=== PATIENT | male | born 1960 | race Caucasian/White ===

== ENCOUNTER 2017-05-14 09:37 | Observation (INO) ==
--- NOTE | 2017-05-14 10:35 | Emergency Department Note ---
Disposition Clinical Impression: Elevated lactic acid level, Lethargic, Rib pain on left side Left shoulder pain Qualifiers: Chronicity: chronic Qualified Code(s): M25.512 - Pain in left shoulder Contusion of left shoulder Qualifiers: Encounter type: initial encounter Qualified Code(s): S40.012A - Contusion of left shoulder, initial encounter Disposition: Admitted As Inpatient Condition: Fair Time of Disposition: 19:11 General Adult HPI - General Chief complaint: ED Extremity Injury, Upper Stated complaint: left shoulder pain Time Seen by Provider: 05/14/17 09:47 Source: EMS Limitations: no limitations Nursing Notes Reviewed: Yes Vital Signs Reviewed: Yes - History of Present Illness HPI Narrative: 57-year-old male complains of left shoulder pain and frequent falls over the past 4 years. Patient states he has no change in his frequent falls which he states he does not know the cause. He is under care at the [facility] and states that there are not helping him with his symptoms which is why he is here today. Patient has a history of diabetes, bipolar. Patient is on atorvastatin, divalproex 500 mg, mirtazapine 30 mg, metformin 1000 mg, diazepam 5 mg 3 times a day with a recent 90 day prescription 9 days ago but only has approximately 30 in the left in the bottle. Patient states he gave some to a friend of his. Patient is also on baclofen and gabapentin. Pain Scale: 10 - Related Data Home Medications Medication Instructions Recorded Confirmed Aspirin 81 mg PO DAILY 04/28/16 05/16/17 Atorvastatin Calcium 40 mg PO HS 04/28/16 05/16/17 Cholecalciferol (Vitamin D3) 2,000 unit PO DAILY 04/28/16 05/16/17 [Vitamin D3] Docusate Sodium [Dok] 100 mg PO BID 04/28/16 05/16/17 Metformin HCl [Glucophage] 1,000 mg PO BID 04/28/16 05/16/17 Albuterol Sulfate [Proventil Hfa] 2 puff IH Q4H PRN 05/14/17 05/16/17 Buspirone HCl [Buspar] 5 mg PO BID 05/14/17 05/16/17 Losartan [Cozaar] 12.5 mg PO DAILY 05/14/17 05/16/17 Mirtazapine [Remeron] 30 mg PO HS 05/14/17 05/16/17 Multivitamin [One Daily Essential] 1 tab PO DAILY 05/14/17 05/16/17 Acetaminophen [Tylenol] 650 mg PO Q8H PRN 05/16/17 05/16/17 Budesonide/Formoterol 160/4.5 1 puff IH BID 05/16/17 05/16/17 [Symbicort 160/4.5] Divalproex (24 HR) [Depakote ER 1,000 mg PO BID 05/16/17 05/16/17 (24 HR)] Roulette-3/Dha/Epa/Fish Oil [Fish Oil 1,000 mg PO DAILY 05/16/17 05/16/17 1,000 mg Softgel] Previous Rx's Medication Instructions Recorded Gabapentin [Neurontin] 600 mg PO TID #45 capsule 05/18/17 Allergies Allergy/AdvReac Type Severity Reaction Status Date / Time tramadol AdvReac Itching Verified 05/16/17 09:55 All systems ED: reviewed and negative except as stated. Review of Systems: As Per HPI Constitutional: Reports: weakness. Denies: fever, chills Eyes: Denies: vision change ENT ED: Denies: congestion Cardiovascular: Denies: chest pain Respiratory: Denies: cough Gastrointestinal: Denies: abdominal pain, nausea, vomiting, diarrhea Genitourinary: Denies: urgency Musculoskeletal: Reports: back pain Past Medical History - Past Medical History Attestation: Yes The following information was validated with the patient. Source: patient, nursing notes reviewed Medical history: Reports: non-contributory, diabetes, hyperlipidemia, hypertension Surgical history: Reports: herniorrhaphy, orthopedic, other (left shoulder, bilateral feet, bilateral knees) Psychiatric history: Reports: anxiety, bipolar, other - Social History Smoking Status: Current every day smoker Smokeless Tobacco Status: No Alcohol use: Reports: none Drug use: Reports: none Physical Exam Vital Signs Temperature 98.4 F 05/14/17 09:41 Pulse Rate 113 05/14/17 09:41 Respiratory Rate 16 05/14/17 09:41 Blood Pressure 117/85 05/14/17 09:41 O2 Sat by Pulse Oximetry 93 05/14/17 09:41 Temperature 98.4 F 05/14/17 09:41 Pulse Rate 103 05/14/17 11:45 Respiratory Rate 22 05/14/17 11:45 Blood Pressure 102/69 05/14/17 11:45 O2 Sat by Pulse Oximetry 98 05/14/17 11:45 Oxygen Delivery Oxygen Delivery Nasal Cannula 57-year-old male who is alert and oriented 3 but appears lethargic. I had to tell the patient to open his eyes but follows commands. Patient appears weak on his left side when compared to the right but states this weakness is chronic. Patient has tenderness at his left shoulder with reduction in range of motion secondary to discomfort. Patient's vital signs show these afebrile but tachycardic at 113 bpm. Rest of vital signs normal. - General Limitations: no limitations General appearance: in no apparent distress - Head Head exam: other (Erythema on middle for head second very to striking head on the floor) - Eye Eye exam: Present: normal appearance, PERRL, EOMI - ENT ENT exam: normal exam, mucous membranes moist - Neck Neck exam: Present: normal inspection, full ROM, trachea midline - Chest Chest inspection: Present: normal inspection, symmetric chest wall rise - Respiratory Respiratory exam: Present: normal lung sounds bilaterally. Absent: respiratory distress, wheezes - Cardiovascular Cardiovascular exam: Present: regular rate, normal rhythm, normal heart sounds - Abdominal Exam Abdominal exam: Present: soft, Non-Tender. Absent: tenderness, distention, guarding, rebound, rigidity Course - Consultations Consultation #1: discussed with Hospitalist Dr. Rodriges, who states to call ICU for lactic acid of 6.2 Time: 14:38 Consultation #2: Dr. Meyer the jai alai player recommends CT abdomen and pelvis to rule out ischemic bowel and call him back. Time: 14:52 Vital Signs Temperature 98.4 F 05/14/17 09:41 Pulse Rate 113 05/14/17 09:41 Respiratory Rate 16 05/14/17 09:41 Blood Pressure 117/85 05/14/17 09:41 O2 Sat by Pulse Oximetry 93 05/14/17 09:41 Temperature 97.3 F L 05/16/17 02:23 Pulse Rate 81 05/16/17 02:23 Respiratory Rate 18 05/16/17 02:23 Blood Pressure 96/63 05/16/17 02:23 O2 Sat by Pulse Oximetry 98 05/15/17 15:40 Oxygen Delivery Oxygen Delivery Nasal Cannula Medical Decision Making - [facility] Narrative Medical decision making narrative: Differential diagnoses for possible DKA, sepsis, cerebral infarct, medication side effects, medication overdose. Currently patient's labs show positivity for all abated lactic acid at 6.2 without associated renal failure or liver disease and no septicemia. Patient started on IV normal saline 3 L boluses. Carboxyhemoglobin was ordered to rule out carbon monoxide poisoning. Carboxyhemoglobin came back elevated 8.3 the patient is also a one pack per day smoker. Pt has no shift in pH, but is on metformin and believe Pt's elevated Lactic acid is from improper medication administration. He states hes has been taking meds from his pill counter improperly. On reexamination patient has improved mentation with still a bit lethargic. Repeat lactic acid has been ordered for 4 hours from initial , and current plan is for patient to be admitted for further evaluation. Patient's case was discussed with Dr. Rodriges the hospitalist to request patient go to the ICU for his elevated lactic acid. Spoke to jai alai player Dr. Meyer who states she checked patient for possible mesenteric ischemia and perform CT abdomen and pelvis prior to consideration for ICU placement. If scan is negative patient will be okay to go to regular inpatient. CT scan was negative. Scan did show micro pulmonary nodules. Pt will be made aware of findings. Pt accepts decision for admission. Dr. Rodriges the hospitalist has accepted Pt for admission. on reevaluation, lactic acid is decreasing and is currently 4.0. Pt's mentation is improving. - Lab Data Lab results reviewed: Yes I reviewed the patient's lab results. Lab results narrative: Short CBC 05/14/17 Range/Units 10:52 WBC 8.8 (4.3-11.1) K/mcL Hgb 15.7 (12.9-16.9) g/dL Hct 47.2 (37.5-50.1) % Plt Count 167 (140-400) K/mcL Neutrophils # 4.7 (1.6-8.9) K/mcL BMP 05/14/17 Range/Units 10:52 Sodium 142 (136-145) mEq/L Potassium 4.1 (3.5-5.1) mEq/L Chloride 107 (98-107) mEq/L Carbon Dioxide 25 (23-29) mEq/L BUN 10 (6-20) mg/dL Creatinine 1.00 (0.70-1.30) mg/dL Glucose 182 H (70-105) mg/dL Calcium 9.2 (8.6-10.3) mg/dL Cardiac Enzymes 05/14/17 Range/Units 11:11 Troponin I < 0.03 (< 0.04) ng/mL Liver Function 05/14/17 Range/Units 10:52 Total Bilirubin 0.4 (0.3-1.0) mg/dL AST 17 (13-39) Units/L ALT 27 (7-52) Units/L Alkaline Phosphatase 62 (34-104) Units/L Albumin 3.7 (3.5-5.7) g/dL Urine 05/14/17 Range/Units 15:24 Urine Color Dark Yellow (Yellow) Urine Clarity Clear (Clear) Urine pH 5.5 (5.0-8.0) pH Units Ur Specific [place] > 1.030 H (1.010-1.025) Urine Protein 30 H (Neg-Trace) mg/dL Urine Glucose (UA) 250 H (Normal) mg/dL Result diagrams: 05/15/17 00:35 05/15/17 00:35 Lab Results 05/14/17 05/14/17 05/14/17 Range/Units 10:52 10:52 10:52 WBC 8.8 (4.3-11.1) K/mcL RBC 5.33 (4.19-5.50) M/mcL Hgb 15.7 (12.9-16.9) g/dL Hct 47.2 (37.5-50.1) % MCV 88.6 (83.0-100.0) fL MCH 29.5 (28.0-33.3) pg MCHC 33.3 (31.6-35.5) g/dL RDW 13.1 (11.5-14.5) % Plt Count 167 (140-400) K/mcL MPV 10.8 (9.4-12.4) fL Immature Gran % 0.5 (0-4) % Seg Neutrophils % 53.1 % Lymphocytes % 35.0 % Monocytes % 9.0 % Eosinophils % 1.8 % Basophils % 0.6 % Neutrophils # 4.7 (1.6-8.9) K/mcL Lymphocytes # 3.1 (0.6-4.6) K/mcL Monocytes # 0.8 (0.0-1.3) K/mcL Eosinophils # 0.2 (0.0-0.6) K/mcL Basophils # 0.1 (0.0-0.2) K/mcL Immature Plt Fraction 5.8 (1.1-6.1) % VBG pH (7.32-7.42) pH Units VBG pCO2 (41-51) mmHg VBG pO2 (25-50) mmHg VBG HCO3 (21-27) mEq/L Carboxyhemoglobin (0-5) % Sodium 142 (136-145) mEq/L Potassium 4.1 (3.5-5.1) mEq/L Chloride 107 (98-107) mEq/L Carbon Dioxide 25 (23-29) mEq/L BUN 10 (6-20) mg/dL Creatinine 1.00 (0.70-1.30) mg/dL Est GFR ( Amer) > 60 (> 60) Est GFR (Non-Af Amer) > 60 (> 60) BUN/Creatinine Ratio 10 (6-26) Glucose 182 H (70-105) mg/dL POC Glucose (58-89) Calculated Osmolality 298 (280-300) Lactic Acid (0.5-2.2) mmol/L Calcium 9.2 (8.6-10.3) mg/dL Total Bilirubin 0.4 (0.3-1.0) mg/dL AST 17 (13-39) Units/L ALT 27 (7-52) Units/L Alkaline Phosphatase 62 (34-104) Units/L Troponin I (< 0.04) ng/mL Serum Total Protein 6.3 L (6.4-8.9) g/dL Albumin 3.7 (3.5-5.7) g/dL Globulin 2.6 (2.4-3.5) g/dL Albumin/Globulin Ratio 1.4 (1.1-2.2) Beta-Hydroxybutyric Acd (0.02-0.27) mmol/L TSH (0.340-5.600) mcIU/mL Urine Color (Yellow) Urine Clarity (Clear) Urine pH (5.0-8.0) pH Units Ur Specific [place] (1.010-1.025) Urine Protein (Neg-Trace) mg/dL Urine Glucose (UA) (Normal) mg/dL Urine Ketones (Negative) mg/dL Urine Blood (Negative) Urine Nitrite (Negative) Urine Bilirubin (Negative) Urine Urobilinogen (Normal) mg/dL Ur Leukocyte Esterase (Negative) Urine Microscopic RBC (0-3) per hpf Urine Microscopic WBC (0-3) per hpf Ur Squamous Epith Cells (None-Few) per lpf Urine Bacteria (None-Few) per hpf Hyaline Casts (None-Few) per lpf Ur Culture Indicated? (NO) Salicylates (15.0-30.0) mg/dL Urine Opiates Screen (Svzaxm=838) ng/mL Acetaminophen (10-30) mcg/mL Ur Barbiturates Screen (Ehhkdq=649) ng/mL Valproic Acid 86 (50-100) mcg/mL Ur Phencyclidine Scrn (Cutoff=25) ng/mL Ur Amphetamines Screen (Viyync=4567) ng/mL U Benzodiazepines Scrn (Ayampc=679) ng/mL Urine Cocaine Screen (Cutoff= 300) ng/mL U Marijuana (THC) Screen (Cutoff = 50) ng/mL Ethyl Alcohol (0-10) mg/dL Specimen Rejected 05/14/17 05/14/17 05/14/17 Range/Units 11:05 11:11 11:11 WBC (4.3-11.1) K/mcL RBC (4.19-5.50) M/mcL Hgb (12.9-16.9) g/dL Hct (37.5-50.1) % MCV (83.0-100.0) fL MCH (28.0-33.3) pg MCHC (31.6-35.5) g/dL RDW (11.5-14.5) % Plt Count (140-400) K/mcL MPV (9.4-12.4) fL Immature Gran % (0-4) % Seg Neutrophils % % Lymphocytes % % Monocytes % % Eosinophils % % Basophils % % Neutrophils # (1.6-8.9) K/mcL Lymphocytes # (0.6-4.6) K/mcL Monocytes # (0.0-1.3) K/mcL Eosinophils # (0.0-0.6) K/mcL Basophils # (0.0-0.2) K/mcL Immature Plt Fraction (1.1-6.1) % VBG pH (7.32-7.42) pH Units VBG pCO2 (41-51) mmHg VBG pO2 (25-50) mmHg VBG HCO3 (21-27) mEq/L Carboxyhemoglobin 8.3 H (0-5) % Sodium (136-145) mEq/L Potassium (3.5-5.1) mEq/L Chloride (98-107) mEq/L Carbon Dioxide (23-29) mEq/L BUN (6-20) mg/dL Creatinine (0.70-1.30) mg/dL Est GFR ( Amer) (> 60) Est GFR (Non-Af Amer) (> 60) BUN/Creatinine Ratio (6-26) Glucose (70-105) mg/dL POC Glucose (58-89) Calculated Osmolality (280-300) Lactic Acid 6.2 H* (0.5-2.2) mmol/L Calcium (8.6-10.3) mg/dL Total Bilirubin (0.3-1.0) mg/dL AST (13-39) Units/L ALT (7-52) Units/L Alkaline Phosphatase (34-104) Units/L Troponin I (< 0.04) ng/mL Serum Total Protein (6.4-8.9) g/dL Albumin (3.5-5.7) g/dL Globulin (2.4-3.5) g/dL Albumin/Globulin Ratio (1.1-2.2) Beta-Hydroxybutyric Acd 0.00 L (0.02-0.27) mmol/L TSH (0.340-5.600) mcIU/mL Urine Color (Yellow) Urine Clarity (Clear) Urine pH (5.0-8.0) pH Units Ur Specific [place] (1.010-1.025) Urine Protein (Neg-Trace) mg/dL Urine Glucose (UA) (Normal) mg/dL Urine Ketones (Negative) mg/dL Urine Blood (Negative) Urine Nitrite (Negative) Urine Bilirubin (Negative) Urine Urobilinogen (Normal) mg/dL Ur Leukocyte Esterase (Negative) Urine Microscopic RBC (0-3) per hpf Urine Microscopic WBC (0-3) per hpf Ur Squamous Epith Cells (None-Few) per lpf Urine Bacteria (None-Few) per hpf Hyaline Casts (None-Few) per lpf Ur Culture Indicated? (NO) Salicylates < 5.0 L (15.0-30.0) mg/dL Urine Opiates Screen (Htzjsf=323) ng/mL Acetaminophen < 1.0 L (10-30) mcg/mL Ur Barbiturates Screen (Einamc=699) ng/mL Valproic Acid (50-100) mcg/mL Ur Phencyclidine Scrn (Cutoff=25) ng/mL Ur Amphetamines Screen (Uhxvtw=3807) ng/mL U Benzodiazepines Scrn (Kscwup=295) ng/mL Urine Cocaine Screen (Cutoff= 300) ng/mL U Marijuana (THC) Screen (Cutoff = 50) ng/mL Ethyl Alcohol < 10 (0-10) mg/dL Specimen Rejected 05/14/17 05/14/17 05/14/17 Range/Units 11:11 11:13 11:18 WBC (4.3-11.1) K/mcL RBC (4.19-5.50) M/mcL Hgb (12.9-16.9) g/dL Hct (37.5-50.1) % MCV (83.0-100.0) fL MCH (28.0-33.3) pg MCHC (31.6-35.5) g/dL RDW (11.5-14.5) % Plt Count (140-400) K/mcL MPV (9.4-12.4) fL Immature Gran % (0-4) % Seg Neutrophils % % Lymphocytes % % Monocytes % % Eosinophils % % Basophils % % Neutrophils # (1.6-8.9) K/mcL Lymphocytes # (0.6-4.6) K/mcL Monocytes # (0.0-1.3) K/mcL Eosinophils # (0.0-0.6) K/mcL Basophils # (0.0-0.2) K/mcL Immature Plt Fraction (1.1-6.1) % VBG pH 7.35 (7.32-7.42) pH Units VBG pCO2 41 (41-51) mmHg VBG pO2 56 H (25-50) mmHg VBG HCO3 23 (21-27) mEq/L Carboxyhemoglobin (0-5) % Sodium (136-145) mEq/L Potassium (3.5-5.1) mEq/L Chloride (98-107) mEq/L Carbon Dioxide (23-29) mEq/L BUN (6-20) mg/dL Creatinine (0.70-1.30) mg/dL Est GFR ( Amer) (> 60) Est GFR (Non-Af Amer) (> 60) BUN/Creatinine Ratio (6-26) Glucose (70-105) mg/dL POC Glucose (58-89) Calculated Osmolality (280-300) Lactic Acid (0.5-2.2) mmol/L Calcium (8.6-10.3) mg/dL Total Bilirubin (0.3-1.0) mg/dL AST (13-39) Units/L ALT (7-52) Units/L Alkaline Phosphatase (34-104) Units/L Troponin I < 0.03 (< 0.04) ng/mL Serum Total Protein (6.4-8.9) g/dL Albumin (3.5-5.7) g/dL Globulin (2.4-3.5) g/dL Albumin/Globulin Ratio (1.1-2.2) Beta-Hydroxybutyric Acd (0.02-0.27) mmol/L TSH 0.728 (0.340-5.600) mcIU/mL Urine Color (Yellow) Urine Clarity (Clear) Urine pH (5.0-8.0) pH Units Ur Specific [place] (1.010-1.025) Urine Protein (Neg-Trace) mg/dL Urine Glucose (UA) (Normal) mg/dL Urine Ketones (Negative) mg/dL Urine Blood (Negative) Urine Nitrite (Negative) Urine Bilirubin (Negative) Urine Urobilinogen (Normal) mg/dL Ur Leukocyte Esterase (Negative) Urine Microscopic RBC (0-3) per hpf Urine Microscopic WBC (0-3) per hpf Ur Squamous Epith Cells (None-Few) per lpf Urine Bacteria (None-Few) per hpf Hyaline Casts (None-Few) per lpf Ur Culture Indicated? (NO) Salicylates (15.0-30.0) mg/dL Urine Opiates Screen (Fijdmm=095) ng/mL Acetaminophen (10-30) mcg/mL Ur Barbiturates Screen (Gwwevy=452) ng/mL Valproic Acid (50-100) mcg/mL Ur Phencyclidine Scrn (Cutoff=25) ng/mL Ur Amphetamines Screen (Nlwqnf=2600) ng/mL U Benzodiazepines Scrn (Pflbct=400) ng/mL Urine Cocaine Screen (Cutoff= 300) ng/mL U Marijuana (THC) Screen (Cutoff = 50) ng/mL Ethyl Alcohol (0-10) mg/dL Specimen Rejected 05/14/17 05/14/17 05/14/17 Range/Units 13:07 15:06 15:24 WBC (4.3-11.1) K/mcL RBC (4.19-5.50) M/mcL Hgb (12.9-16.9) g/dL Hct (37.5-50.1) % MCV (83.0-100.0) fL MCH (28.0-33.3) pg MCHC (31.6-35.5) g/dL RDW (11.5-14.5) % Plt Count (140-400) K/mcL MPV (9.4-12.4) fL Immature Gran % (0-4) % Seg Neutrophils % % Lymphocytes % % Monocytes % % Eosinophils % % Basophils % % Neutrophils # (1.6-8.9) K/mcL Lymphocytes # (0.6-4.6) K/mcL Monocytes # (0.0-1.3) K/mcL Eosinophils # (0.0-0.6) K/mcL Basophils # (0.0-0.2) K/mcL Immature Plt Fraction (1.1-6.1) % VBG pH (7.32-7.42) pH Units VBG pCO2 (41-51) mmHg VBG pO2 (25-50) mmHg VBG HCO3 (21-27) mEq/L Carboxyhemoglobin (0-5) % Sodium (136-145) mEq/L Potassium (3.5-5.1) mEq/L Chloride (98-107) mEq/L Carbon Dioxide (23-29) mEq/L BUN (6-20) mg/dL Creatinine (0.70-1.30) mg/dL Est GFR ( Amer) (> 60) Est GFR (Non-Af Amer) (> 60) BUN/Creatinine Ratio (6-26) Glucose (70-105) mg/dL POC Glucose 167 H (58-89) Calculated Osmolality (280-300) Lactic Acid (0.5-2.2) mmol/L Calcium (8.6-10.3) mg/dL Total Bilirubin (0.3-1.0) mg/dL AST (13-39) Units/L ALT (7-52) Units/L Alkaline Phosphatase (34-104) Units/L Troponin I (< 0.04) ng/mL Serum Total Protein (6.4-8.9) g/dL Albumin (3.5-5.7) g/dL Globulin (2.4-3.5) g/dL Albumin/Globulin Ratio (1.1-2.2) Beta-Hydroxybutyric Acd (0.02-0.27) mmol/L TSH (0.340-5.600) mcIU/mL Urine Color Dark Yellow (Yellow) Urine Clarity Clear (Clear) Urine pH 5.5 (5.0-8.0) pH Units Ur Specific [place] > 1.030 H (1.010-1.025) Urine Protein 30 H (Neg-Trace) mg/dL Urine Glucose (UA) 250 H (Normal) mg/dL Urine Ketones 15 H (Negative) mg/dL Urine Blood Negative (Negative) Urine Nitrite Negative (Negative) Urine Bilirubin Small H (Negative) Urine Urobilinogen Normal (Normal) mg/dL Ur Leukocyte Esterase Negative (Negative) Urine Microscopic RBC 0-3 (0-3) per hpf Urine Microscopic WBC 0-3 (0-3) per hpf Ur Squamous Epith Cells Many H (None-Few) per lpf Urine Bacteria Few (None-Few) per hpf Hyaline Casts Few (None-Few) per lpf Ur Culture Indicated? NO (NO) Salicylates (15.0-30.0) mg/dL Urine Opiates Screen (Htzlgq=155) ng/mL Acetaminophen (10-30) mcg/mL Ur Barbiturates Screen (Vubcda=941) ng/mL Valproic Acid (50-100) mcg/mL Ur Phencyclidine Scrn (Cutoff=25) ng/mL Ur Amphetamines Screen (Esgkot=0305) ng/mL U Benzodiazepines Scrn (Lknelk=069) ng/mL Urine Cocaine Screen (Cutoff= 300) ng/mL U Marijuana (THC) Screen (Cutoff = 50) ng/mL Ethyl Alcohol (0-10) mg/dL Specimen Rejected Hemolyzed 05/14/17 05/14/17 05/14/17 Range/Units 15:24 16:20 18:36 WBC (4.3-11.1) K/mcL RBC (4.19-5.50) M/mcL Hgb (12.9-16.9) g/dL Hct (37.5-50.1) % MCV (83.0-100.0) fL MCH (28.0-33.3) pg MCHC (31.6-35.5) g/dL RDW (11.5-14.5) % Plt Count (140-400) K/mcL MPV (9.4-12.4) fL Immature Gran % (0-4) % Seg Neutrophils % % Lymphocytes % % Monocytes % % Eosinophils % % Basophils % % Neutrophils # (1.6-8.9) K/mcL Lymphocytes # (0.6-4.6) K/mcL Monocytes # (0.0-1.3) K/mcL Eosinophils # (0.0-0.6) K/mcL Basophils # (0.0-0.2) K/mcL Immature Plt Fraction (1.1-6.1) % VBG pH (7.32-7.42) pH Units VBG pCO2 (41-51) mmHg VBG pO2 (25-50) mmHg VBG HCO3 (21-27) mEq/L Carboxyhemoglobin (0-5) % Sodium (136-145) mEq/L Potassium (3.5-5.1) mEq/L Chloride (98-107) mEq/L Carbon Dioxide (23-29) mEq/L BUN (6-20) mg/dL Creatinine (0.70-1.30) mg/dL Est GFR ( Amer) (> 60) Est GFR (Non-Af Amer) (> 60) BUN/Creatinine Ratio (6-26) Glucose (70-105) mg/dL POC Glucose 122 H (58-89) Calculated Osmolality (280-300) Lactic Acid 4.0 H* (0.5-2.2) mmol/L Calcium (8.6-10.3) mg/dL Total Bilirubin (0.3-1.0) mg/dL AST (13-39) Units/L ALT (7-52) Units/L Alkaline Phosphatase (34-104) Units/L Troponin I (< 0.04) ng/mL Serum Total Protein (6.4-8.9) g/dL Albumin (3.5-5.7) g/dL Globulin (2.4-3.5) g/dL Albumin/Globulin Ratio (1.1-2.2) Beta-Hydroxybutyric Acd (0.02-0.27) mmol/L TSH (0.340-5.600) mcIU/mL Urine Color (Yellow) Urine Clarity (Clear) Urine pH (5.0-8.0) pH Units Ur Specific [place] (1.010-1.025) Urine Protein (Neg-Trace) mg/dL Urine Glucose (UA) (Normal) mg/dL Urine Ketones (Negative) mg/dL Urine Blood (Negative) Urine Nitrite (Negative) Urine Bilirubin (Negative) Urine Urobilinogen (Normal) mg/dL Ur Leukocyte Esterase (Negative) Urine Microscopic RBC (0-3) per hpf Urine Microscopic WBC (0-3) per hpf Ur Squamous Epith Cells (None-Few) per lpf Urine Bacteria (None-Few) per hpf Hyaline Casts (None-Few) per lpf Ur Culture Indicated? (NO) Salicylates (15.0-30.0) mg/dL Urine Opiates Screen Negative (Ncobqj=700) ng/mL Acetaminophen (10-30) mcg/mL Ur Barbiturates Screen Negative (Myjmtp=456) ng/mL Valproic Acid (50-100) mcg/mL Ur Phencyclidine Scrn Negative (Cutoff=25) ng/mL Ur Amphetamines Screen Negative (Htocqu=7133) ng/mL U Benzodiazepines Scrn Positive H (Hlbdbn=350) ng/mL Urine Cocaine Screen Negative (Cutoff= 300) ng/mL U Marijuana (THC) Screen Negative (Cutoff = 50) ng/mL Ethyl Alcohol (0-10) mg/dL Specimen Rejected 05/14/17 05/14/17 Range/Units 18:46 18:46 WBC (4.3-11.1) K/mcL RBC (4.19-5.50) M/mcL Hgb (12.9-16.9) g/dL Hct (37.5-50.1) % MCV (83.0-100.0) fL MCH (28.0-33.3) pg MCHC (31.6-35.5) g/dL RDW (11.5-14.5) % Plt Count (140-400) K/mcL MPV (9.4-12.4) fL Immature Gran % (0-4) % Seg Neutrophils % % Lymphocytes % % Monocytes % % Eosinophils % % Basophils % % Neutrophils # (1.6-8.9) K/mcL Lymphocytes # (0.6-4.6) K/mcL Monocytes # (0.0-1.3) K/mcL Eosinophils # (0.0-0.6) K/mcL Basophils # (0.0-0.2) K/mcL Immature Plt Fraction (1.1-6.1) % VBG pH (7.32-7.42) pH Units VBG pCO2 (41-51) mmHg VBG pO2 (25-50) mmHg VBG HCO3 (21-27) mEq/L Carboxyhemoglobin (0-5) % Sodium (136-145) mEq/L Potassium (3.5-5.1) mEq/L Chloride (98-107) mEq/L Carbon Dioxide (23-29) mEq/L BUN (6-20) mg/dL Creatinine (0.70-1.30) mg/dL Est GFR ( Amer) (> 60) Est GFR (Non-Af Amer) (> 60) BUN/Creatinine Ratio (6-26) Glucose (70-105) mg/dL POC Glucose (58-89) Calculated Osmolality (280-300) Lactic Acid 3.1 H (0.5-2.2) mmol/L Calcium (8.6-10.3) mg/dL Total Bilirubin (0.3-1.0) mg/dL AST (13-39) Units/L ALT (7-52) Units/L Alkaline Phosphatase (34-104) Units/L Troponin I < 0.03 (< 0.04) ng/mL Serum Total Protein (6.4-8.9) g/dL Albumin (3.5-5.7) g/dL Globulin (2.4-3.5) g/dL Albumin/Globulin Ratio (1.1-2.2) Beta-Hydroxybutyric Acd (0.02-0.27) mmol/L TSH (0.340-5.600) mcIU/mL Urine Color (Yellow) Urine Clarity (Clear) Urine pH (5.0-8.0) pH Units Ur Specific [place] (1.010-1.025) Urine Protein (Neg-Trace) mg/dL Urine Glucose (UA) (Normal) mg/dL Urine Ketones (Negative) mg/dL Urine Blood (Negative) Urine Nitrite (Negative) Urine Bilirubin (Negative) Urine Urobilinogen (Normal) mg/dL Ur Leukocyte Esterase (Negative) Urine Microscopic RBC (0-3) per hpf Urine Microscopic WBC (0-3) per hpf Ur Squamous Epith Cells (None-Few) per lpf Urine Bacteria (None-Few) per hpf Hyaline Casts (None-Few) per lpf Ur Culture Indicated? (NO) Salicylates (15.0-30.0) mg/dL Urine Opiates Screen (Brxamt=397) ng/mL Acetaminophen (10-30) mcg/mL Ur Barbiturates Screen (Jrhcfp=613) ng/mL Valproic Acid (50-100) mcg/mL Ur Phencyclidine Scrn (Cutoff=25) ng/mL Ur Amphetamines Screen (Cerqng=0806) ng/mL U Benzodiazepines Scrn (Waootm=694) ng/mL Urine Cocaine Screen (Cutoff= 300) ng/mL U Marijuana (THC) Screen (Cutoff = 50) ng/mL Ethyl Alcohol (0-10) mg/dL Specimen Rejected - Radiology Data Radiology results reviewed: Yes I reviewed the patient's radiology results. Chest X-Ray 05/14/17 10:36 IMPRESSION: Mild cardiomegaly. Low lung volumes. Mild pulmonary vascular congestion. Trace bilateral pleural effusions. Status post reverse total left shoulder arthroplasty, in gross anatomic alignment, without evidence of hardware complication, fracture or dislocation. Resection of the distal left clavicle, stable. D/ / Spencer King MD / Spencer King MD Interpreting Provider: Spencer King MD Head CT 05/14/17 10:38 IMPRESSION: No acute intracranial abnormality. Stable exam. D/ / Quentin Johnson MD / Quentin Johnson MD Interpreting Provider: Quentin Johnson MD Shoulder X-Ray 05/14/17 10:38 IMPRESSION: Mild cardiomegaly. Low lung volumes. Mild pulmonary vascular congestion. Trace bilateral pleural effusions. Status post reverse total left shoulder arthroplasty, in gross anatomic alignment, without evidence of hardware complication, fracture or dislocation. Resection of the distal left clavicle, stable. D/ / Spencer King MD / Spencer King MD Interpreting Provider: Spencre King MD Cervical Spine CT 05/14/17 10:57 IMPRESSION: No acute abnormality of the cervical spine. Mild degenerate changes. D/ / Quentin Johnson MD / Quentin Johnson MD Interpreting Provider: Quentin Johnson MD Abdomen/Pelvis CT 05/14/17 14:52 IMPRESSION: Status post ventral hernia repair without obvious complication. Atelectasis and/or infiltrates within the left lung base. Right lower lobe pulmonary micronodule. Urinary bladder stone. Mild prostatomegaly. RECOMMENDATIONS: Fleischner Society guidelines for follow-up and management of pulmonary nodules: Nodule size less than or equal to 4 mm In a low-risk patient, no follow-up needed. In a high-risk patient, follow-up CT at 12 months; if unchanged, no further follow-up. Nodule size equals 4-6 mm In a low-risk patient, follow-up CT at 12 months; if unchanged, no further follow-up. In a high-risk patient, initial follow-up CT at 6-12 months then at 18-24 months if no change. Nodule size equals 6-8 mm In a low-risk patient, initial follow-up CT at 6-12 months then at 18-24 months if no change. In a high-risk patient, initial follow-up CT at 3-6 months then at 9-12 months and 24 months if no change. Nodule size greater than 8 mm In low-risk and high-risk patients follow-up CT at around 3, 9, and 24 months, dynamic contrast-enhanced CT, PET, and/or biopsy. Low risk patients include individuals with minimal or absent history of smoking and other known risk factors. High risk patients include individuals with a history of smoking or other known risk factors. Radiology 2005; [id number]:[id number] D/ / Eren Ireland MD / Eren Ireland MD Interpreting Provider: Eren Ireland MD - EKG Data EKG #1 EKG attestation: Yes I reviewed and interpreted this EKG. EKG shows normal: sinus rhythm Rate: tachycardia Voltage: decreased voltage throughout Interpretation: no acute changes, unchanged when compared to prior tracing (date ) Attestation Statement - Attestation Attestation: I examined this patient and my medical decision-making was reviewed with the Resident Physician. I agree with the documented findings, disposition and treatment plan as described except to the extent set forth below. On my exam, pt is oriented x 3 but slow to answer questions. No lateralizing deficit, no appreciable EOM abnormality or pupillary abnormality. Lactate elevated but not acidemic. Pt clearly cannot be discharged, Dr. Villela spoke with hospitalist who agreed to admit pt for observation and further evaluation.
[2017-05-14] MEDS ORDERED: 0.9 % Sodium Chloride 1,000 ML IVC ONE (10:36)
[2017-05-14 11:01] LABS: Basophils # 0.1 K/mcL (0.0-0.2); Basophils % 0.6 %; Eosinophils # 0.2 K/mcL (0.0-0.6); Eosinophils % 1.8 %; Hematocrit 47.2 % (37.5-50.1); Hemoglobin 15.7 g/dL (12.9-16.9); Immature Granulocytes % 0.5 % (0-4); Immature Platelets 5.8 % (1.1-6.1); Lymphocytes # 3.1 K/mcL (0.6-4.6); Mean Corpuscular HGB Conc 33.3 g/dL (31.6-35.5); Mean Corpuscular Hemoglobin 29.5 pg (28.0-33.3); Mean Corpuscular Volume 88.6 fL (83.0-100.0); Mean Platelet Volume 10.8 fL (9.4-12.4); Monocytes # 0.8 K/mcL (0.0-1.3); Neutrophils # 4.7 K/mcL (1.6-8.9); Platelet Count 167 K/mcL (140-400); Red Blood Count 5.33 M/mcL (4.19-5.50); Red Cell Distribution Width 13.1 % (11.5-14.5); Segmented Neutrophils % 53.1 %
[2017-05-14 11:17] LABS: Alanine Aminotransferase 27 Units/L (7-52); Albumin 3.7 g/dL (3.5-5.7); Albumin/Globulin Ratio 1.4 (1.1-2.2); Alkaline Phosphatase 62 Units/L (34-104); Aspartate Amino Transferase 17 Units/L (13-39); BUN/Creatinine Ratio 10 (6-26); Bilirubin,Total 0.4 mg/dL (0.3-1.0); Blood Urea Nitrogen 10 mg/dL (6-20); Calcium 9.2 mg/dL (8.6-10.3); Carbon Dioxide 25 mEq/L (23-29); Chloride 107 mEq/L (98-107); Globulin 2.6 g/dL (2.4-3.5); Glucose 182 mg/dL (70-105); Osmolality,Calculated 298 (280-300); Potassium 4.1 mEq/L (3.5-5.1); Sodium 142 mEq/L (136-145); Total Protein 6.3 g/dL (6.4-8.9); eGFR For African Americans > 60 (> 60); eGFR For Non-African Americans > 60 (> 60)
[2017-05-14 11:20] LABS: VBG HCO3 23 mEq/L (21-27); VBG PCO2 41 mmHg (41-51); VBG PH 7.35 pH Units (7.32-7.42); VBG PO2 56 mmHg (25-50)
[2017-05-14 11:32] LABS: Acetaminophen < 1.0 mcg/mL (10-30); Ethanol < 10 mg/dL (0-10); Salicylate < 5.0 mg/dL (15.0-30.0)
[2017-05-14] MEDS: 0.9 % Sodium Chloride 1,000 ML IVC SCH ×2 (14:04→22:00)
[2017-05-14 15:32] LABS: Bilirubin,Urine Small (Negative); Blood,Urine Negative (Negative); Clarity,Urine Clear (Clear); Color,Urine Dark Yellow (Yellow); Glucose,Urine (UA) 250 mg/dL (Normal); Ketones,Urine 15 mg/dL (Negative); Leukocyte Esterase,Urine Negative (Negative); Nitrite,Urine Negative (Negative); PH,Urine 5.5 pH Units (5.0-8.0); Protein,Urine 30 mg/dL (Neg-Trace); Specific Gravity,Urine > 1.030 (1.010-1.025); Urobilinogen,Urine Normal (Normal)
[2017-05-14 15:35] LABS: Hyaline Casts,Urine Few per lpf (None-Few); RBC,Urine 0-3 per hpf (0-3); Squamous Epithelial Cell,Urine Many per lpf (None-Few); WBC,Urine 0-3 per hpf (0-3)
[2017-05-14 15:48] LABS: Bacteria,Urine Few per hpf (None-Few)
[2017-05-14 15:57] LABS: Amphetamine Screen,Urine Negative ng/mL (Cutoff=1000); Barbiturate Screen,Urine Negative ng/mL (Cutoff=200); Benzodiazepines Screen,Urine Positive ng/mL (Cutoff=200); Cannabinoid Screen,Urine Negative ng/mL (Cutoff = 50); Cocaine Screen,Urine Negative ng/mL (Cutoff= 300); Opiate Screen,Urine Negative ng/mL (Cutoff=300); Phencyclidine Screen,Urine Negative ng/mL (Cutoff=25)
[2017-05-14] MEDS ORDERED: Naloxone 0.4 MG/ML INJ IVP PRN (17:57)
[2017-05-14] MEDS ORDERED: 0.9 % Sodium Chloride 1,000 ML IVC SCH (18:00)
--- NOTE | 2017-05-14 18:14 | Internal Med History&Physical ---
Date of Encounter: 05/14/17 Time of Encounter: 18:08 Assessment and Plan (1) Elevated lactic acid level Current visit: Yes Status: Acute 57/male PCP: [facility]. Has multiple comorbid conditions. Came in with worsening of his posture and recurrent fall. Patient has a gait difficulty. The recent fall was this morning. Extensive imaging of the head/cervical spine/shoulder/chest and CT abdomen and pelvis was negative for any source of infection. he was evaluated by ICU and recommended to manage on the floor in spite of elevated lactic acid which is downward trending. Plan: Admit as inpatient: Patient has elevated lactic acid which needs to be worked up and treated accordingly. IV vancomycin/Zosyn/levofloxacin. We will continue IV fluids since patient's lactic acid is trending down Orthopedics evaluation for the left shoulder pain. Repeat labs tomorrow morning. Close monitoring of the patient respiratory status as well as general condition Low threshold to transfer to ICU if clinically worsens (2) Type 2 diabetes mellitus Current visit: No Status: Acute Type 2 diabetes mellitus: Subcutaneous tenderness insulin order set: We will follow the recommendations Qualifiers: Diabetes mellitus complication status: without complication Diabetes mellitus alf insulin use: without oil heaterman use Qualified Code(s): E11.9 - Type 2 diabetes mellitus without complications (3) Hypertension Current visit: No Status: Acute Patient's blood pressure is within acceptable range. Qualifiers: Hypertension type: essential hypertension Qualified Code(s): I10 - Essential (primary) hypertension (4) Anxiety Current visit: No Status: Acute Patient is a background history of anxiety. We will restart home medication (5) DVT prophylaxis Current visit: No Status: Acute SCD. Decision making: This patient has moderate to severe risk of worsening in spite of being on appropriate medication due to the underlying complex comorbid condition Internal Medicine - H&P: HPI Chief complaint: left shoulder pain Admitted From: Emergency Dept Plans for Post Hospital Care: Home History of present illness: Mr. Luke is a 57 year old male whose primary care physician is at [facility]. Patient has a background history of her diabetes, hypertension, dyslipidemia, previous shoulder surgery and history of multiple falls. Patient was complaining of worsening gait abnormality along with with recurrent fall in past 72 hours. Patient had a recent 2 falls this morning and that was the reason he came to this hospital for further evaluation. Patient is also complaining of persistent left shoulder pain. Patient had a recent shoulder surgery in the past but his pain from the surgery was completely under control and was painless for the past 1 month. This is a new onset of a left shoulder pain. Patient denies chest pain, shortness of breath, nausea, vomiting, abdominal pain , dizziness and diarrhea. Workup in the emergency room: Patient was evaluated in the emergency room. Multiple imaging was done which was negative for any source for infection as patient's lactic acid was elevated to 6. Repeat lactic acid after vigorous fluid management was 4. ICU was contacted but the recommendation from ICU was if patient has any source of infection after getting a CT abdomen and pelvis then they will accept the patient. CT chest abdomen was negative for any source of infection. Patient's troponin was negative. EKG was within acceptable range. Reason for admission: Elevated lactic acid with unknown source at this point possible occult infection. Family history: Noncontributory Past Med Surg Social Fam HX - Past Medical History Medical history: non-contributory, diabetes, hyperlipidemia, hypertension Psychiatric history: anxiety, bipolar, other - Past Surgical History Surgical History: herniorrhaphy, orthopedic, other (left shoulder, bilateral feet, bilateral knees) - Social History Smoking Status: Current every day smoker Smokeless Tobacco Status: No Alcohol use: none Drug use: none - Family History Mother Living Status: Internal Medicine - H&P: Meds Aspirin 81 mg PO DAILY 04/28/16 [History] Atorvastatin Calcium 40 mg PO DAILY 04/28/16 [History] Cholecalciferol (Vitamin D3) [Vitamin D3] 2,000 unit PO DAILY 04/28/16 [History] Divalproex (12 HR) [Depakote (12 HR)] 1,000 mg PO BID 04/28/16 [History] Docusate Sodium [Dok] 100 mg PO BID 04/28/16 [History] Metformin HCl [Glucophage] 1,000 mg PO BID 04/28/16 [History] diazePAM [Valium] 5 mg PO TID 04/28/16 [History] Acetaminophen [Tylenol] 650 mg PO Q6HR PRN #20 tablet 04/30/16 [Rx] Albuterol Sulfate [Proventil Hfa] 1 puff IH Q6H PRN 05/14/17 [History] Baclofen [Lioresal] 10 mg PO TID 05/14/17 [History] Buspirone HCl [Buspar] 5 mg PO BID 05/14/17 [History] Gabapentin [Neurontin] 1,200 mg PO TID 05/14/17 [History] Losartan [Cozaar] 12.5 mg PO DAILY 05/14/17 [History] Mirtazapine [Remeron] 30 mg PO HS 05/14/17 [History] Multivitamin [One Daily Essential] 1 tab PO DAILY 05/14/17 [History] [place]-3S/Dha/Epa/Fish Oil [Ultra [place]-3 Softgel] 1 cap PO DAILY 05/14/17 [ History] 3 Allergy/AdvReac Type Severity Reaction Status Date / Time tramadol AdvReac Itching Verified 05/14/17 09:49 All Systems PM: A 10-system review of systems was performed and is negative for pertinent findings except as documented above in the HPI. - Constitutional Constitutional: no chills, no fever(s), no night sweats - EENT Eyes: no change in vision, no discharge, no pain, no photophobia Ears: no ear discharge, no ear pain, no tinnitus Nose, mouth and throat: no dysphagia, no nasal discharge, no neck pain, no sore throat - Cardiovascular Cardiovascular ROS IM: no chest pain, no diaphoresis, no dyspnea, no lightheadedness, no palpitations, no syncope - Respiratory Respiratory: no cough, no dyspnea, no wheezing, no excessive phlegm production - Gastrointestinal Gastrointestinal: no abdominal pain, no diarrhea, no hematemesis, no hematochezia, no melena, no nausea, no vomiting - Musculoskeletal Musculoskeletal ROS IM: back pain, limited range of motion, muscle cramps, muscle weakness, numbness, tingling - Integumentary Integumentary IM: no rash, no unusual bruising - Neurological Neurological ROS: no confusion, no convulsions, no focal weakness, no numbness, no tingling, no tremor(s) - Hematologic/Lymphatic Hematologic/Lymphatic: no easy bruising - Constitutional Vitals: Temp Pulse Resp BP Pulse Ox 98.4 F 76 16 137/97 98 05/14/17 09:41 05/14/17 17:54 05/14/17 17:54 05/14/17 17:54 05/14/17 17:54 General appearance: Present: A&O X 2, pleasant, no acute distress, obese, answers questions appropriately - Head Head exam: Present: atraumatic, normocephalic - Eye Eye exam: Present: PERRL, conjuntiva pink, sclera anicteric Pupils: Present: PERRL - Neck Neck exam general surgery: Present: supple, trachea midline. Absent: lymphadenopathy - Respiratory Respiratory exam: Present: CTAB. Absent: accessory muscle use, rales, rhonchi, wheezes - Cardiovascular Cardiovascular exam: Present: RRR, +S1, +S2. Absent: diastolic murmur, gallop, rubs, systolic murmur - GI/Abdominal GI/Abdominal exam: Present: normal bowel sounds, soft, no peritoneal signs. Absent: distended, tenderness - Extremities Exam Extremities exam: Present: warm, radial pulses palpable and symmetrical. Absent : calf tenderness, cyanotic, pedal edema - Neurological Exam Neurological exam: Present: CN II-XII intact, oriented X3, no focal deficits. Absent: pronater drift, facial droop, speech deficit - Skin Skin exam: Present: dry, intact Internal Med - H&P Results - Labs CBC & Chem 7: 05/14/17 10:52 05/14/17 10:52 Labs: Short CBC 05/14/17 Range/Units 10:52 WBC 8.8 (4.3-11.1) K/mcL Hgb 15.7 (12.9-16.9) g/dL Hct 47.2 (37.5-50.1) % Plt Count 167 (140-400) K/mcL Neutrophils # 4.7 (1.6-8.9) K/mcL BMP 05/14/17 10:52 Sodium 142 Potassium 4.1 Chloride 107 Carbon Dioxide 25 BUN 10 Creatinine 1.00 Glucose 182 H Calcium 9.2 Cardiac Enzymes 05/14/17 Range/Units 11:11 Troponin I < 0.03 (< 0.04) ng/mL Liver Function 05/14/17 Range/Units 10:52 Total Bilirubin 0.4 (0.3-1.0) mg/dL AST 17 (13-39) Units/L ALT 27 (7-52) Units/L Alkaline Phosphatase 62 (34-104) Units/L Albumin 3.7 (3.5-5.7) g/dL Urine 05/14/17 Range/Units 15:24 Urine Color Dark Yellow (Yellow) Urine Clarity Clear (Clear) Urine pH 5.5 (5.0-8.0) pH Units Ur Specific [place] > 1.030 H (1.010-1.025) Urine Protein 30 H (Neg-Trace) mg/dL Urine Glucose (UA) 250 H (Normal) mg/dL - ABG Interpretation ABG results: 05/14/17 11:18 VBG pH 7.35 VBG pCO2 41 VBG pO2 56 H VBG HCO3 23 - Impressions ITS Impressions Chest X-Ray 05/14/17 10:36 IMPRESSION: Mild cardiomegaly. Low lung volumes. Mild pulmonary vascular congestion. Trace bilateral pleural effusions. Status post reverse total left shoulder arthroplasty, in gross anatomic alignment, without evidence of hardware complication, fracture or dislocation. Resection of the distal left clavicle, stable. D/ / Spencer King MD / Spencer King MD Interpreting Provider: Spencer King MD Head CT 05/14/17 10:38 IMPRESSION: No acute intracranial abnormality. Stable exam. D/ / Quentin Johnson MD / Quentin Johnson MD Interpreting Provider: Quentin Johnson MD Shoulder X-Ray 05/14/17 10:38 IMPRESSION: Mild cardiomegaly. Low lung volumes. Mild pulmonary vascular congestion. Trace bilateral pleural effusions. Status post reverse total left shoulder arthroplasty, in gross anatomic alignment, without evidence of hardware complication, fracture or dislocation. Resection of the distal left clavicle, stable. D/ / Spencer King MD / Spencer King MD Interpreting Provider: Spencer King MD Cervical Spine CT 05/14/17 10:57 IMPRESSION: No acute abnormality of the cervical spine. Mild degenerate changes. D/ / Quentin Johnson MD / Quentin Johnson MD Interpreting Provider: Quentin Johnson MD Abdomen/Pelvis CT 05/14/17 14:52 IMPRESSION: Status post ventral hernia repair without obvious complication. Atelectasis and/or infiltrates within the left lung base. Right lower lobe pulmonary micronodule. Urinary bladder stone. Mild prostatomegaly. RECOMMENDATIONS: Fleischner Society guidelines for follow-up and management of pulmonary nodules: Nodule size less than or equal to 4 mm In a low-risk patient, no follow-up needed. In a high-risk patient, follow-up CT at 12 months; if unchanged, no further follow-up. Nodule size equals 4-6 mm In a low-risk patient, follow-up CT at 12 months; if unchanged, no further follow-up. In a high-risk patient, initial follow-up CT at 6-12 months then at 18-24 months if no change. Nodule size equals 6-8 mm In a low-risk patient, initial follow-up CT at 6-12 months then at 18-24 months if no change. In a high-risk patient, initial follow-up CT at 3-6 months then at 9-12 months and 24 months if no change. Nodule size greater than 8 mm In low-risk and high-risk patients follow-up CT at around 3, 9, and 24 months, dynamic contrast-enhanced CT, PET, and/or biopsy. Low risk patients include individuals with minimal or absent history of smoking and other known risk factors. High risk patients include individuals with a history of smoking or other known risk factors. Radiology 2005; 237:[id number] D/ / Eren Ireland MD / Eren Ireland MD Interpreting Provider: Eren Ireland MD
[2017-05-14] MEDS ORDERED: Vancomycin 1,500 MG in D5% in Water 250 ML IVPB SCH (19:00)
[2017-05-14] MEDS ORDERED: Levofloxacin 750 MG/150 ML 750 MG/150 ML BAG IVPB SCH (20:00)
[2017-05-14] MEDS ORDERED: Mirtazapine 15 MG TABLET PO SCH (21:00)
[2017-05-14] MEDS: Gabapentin 400 MG CAPSULE PO SCH (22:30)
[2017-05-14] MEDS: Baclofen 10 MG TABLET PO SCH (22:30)
[2017-05-14] MEDS: Divalproex (12 HR) 500 MG TABLET PO SCH (23:05)
[2017-05-14] MEDS: *HR* Morphine 2 MG/ML SYRINGE IVP PRN (23:08)
[2017-05-15] MEDS ORDERED: Piperacillin/Tazobactam 3.375 GM in D5% in Water (Mini-Bag+) 100 ML IVPB SCH
[2017-05-15] MEDS ORDERED: Vancomycin 1,500 MG in D5% in Water 250 ML IVPB ONE
[2017-05-15 00:56] LABS: Basophils % 0.3 %; Eosinophils # 0.2 K/mcL (0.0-0.6); Hematocrit 39.8 % (37.5-50.1); Immature Granulocytes % 0.3 % (0-4); Lymphocytes # 2.9 K/mcL (0.6-4.6); Lymphocytes % 48.2 %; Mean Corpuscular HGB Conc 33.7 g/dL (31.6-35.5); Mean Corpuscular Hemoglobin 29.7 pg (28.0-33.3); Mean Corpuscular Volume 88.2 fL (83.0-100.0); Mean Platelet Volume 11.2 fL (9.4-12.4); Monocytes # 0.5 K/mcL (0.0-1.3); Monocytes % 7.6 %; Neutrophils # 2.4 K/mcL (1.6-8.9); Platelet Count 124 K/mcL (140-400); Red Blood Count 4.51 M/mcL (4.19-5.50); Segmented Neutrophils % 40.6 %
[2017-05-15 01:00] LABS: Hemoglobin 13.4 g/dL (12.9-16.9)
[2017-05-15 01:01] LABS: INR 1.1; Prothrombin Time 12.1 Seconds (9.4-12.1)
[2017-05-15 01:04] LABS: Activated Partial Thrombo Time 26.4 Seconds (26.0-36.0)
[2017-05-15 01:14] LABS: Alanine Aminotransferase 20 Units/L (7-52); Albumin 3.3 g/dL (3.5-5.7); Albumin/Globulin Ratio 1.5 (1.1-2.2); Alkaline Phosphatase 54 Units/L (34-104); Aspartate Amino Transferase 14 Units/L (13-39); BUN/Creatinine Ratio 11 (6-26); Bilirubin,Total 0.5 mg/dL (0.3-1.0); Blood Urea Nitrogen 7 mg/dL (6-20); Calcium 7.9 mg/dL (8.6-10.3); Carbon Dioxide 25 mEq/L (23-29); Chloride 109 mEq/L (98-107); Chol/HDL Ratio 4.2 (0-4.9); Cholesterol 123 mg/dL (< 200); Globulin 2.2 g/dL (2.4-3.5); Glucose 171 mg/dL (70-105); HDL Cholesterol 29 mg/dL (40-59); LDL Cholesterol,Calculated 72 mg/dL (0-99); Magnesium 1.2 mg/dL (1.6-2.6); Osmolality,Calculated 294 (280-300); Phosphorous 2.7 mg/dL (2.7-4.5); Potassium 3.8 mEq/L (3.5-5.1); Sodium 141 mEq/L (136-145); Total Protein 5.5 g/dL (6.4-8.9); Triglycerides 110 mg/dL (< 150); eGFR For African Americans > 60 (> 60); eGFR For Non-African Americans > 60 (> 60)
[2017-05-15] MEDS: Piperacillin/Tazobactam 3.375 GM/200 ML BAG IVPB SCH ×2 (02:16→09:37)
[2017-05-15] MEDS ORDERED: DHA PO SCH (09:00)
[2017-05-15] MEDS ORDERED: OMEGA PO SCH (09:00)
[2017-05-15] MEDS ORDERED: EPA PO SCH (09:00)
[2017-05-15] MEDS ORDERED: Aspirin 81 MG TAB.CHEW PO SCH (09:00)
[2017-05-15] MEDS ORDERED: FISH OIL PO SCH (09:00)
[2017-05-15] MEDS: Divalproex (12 HR) 500 MG TABLET PO SCH (09:38)
[2017-05-15] MEDS: Gabapentin 400 MG CAPSULE PO SCH ×2 (09:39→14:48)
[2017-05-15] MEDS: Baclofen 10 MG TABLET PO SCH ×2 (09:39→14:48)
[2017-05-15] MEDS: *HR* Morphine 2 MG/ML SYRINGE IVP PRN (10:51)
[2017-05-15] MEDS ORDERED: Vancomycin 1,250 MG in D5% in Water 250 ML IVPB SCH (12:00)
[2017-05-15] MEDS ORDERED: *HR* OxyCODONE/APAP 5/325 TABLET PO PRN (13:46)
[2017-05-15] MEDS ORDERED: Nicotine 21 MG PATCH.TD24 TD SCH (15:45)
--- NOTE | 2017-05-15 16:42 | Internal Med Progress Note ---
Date of Encounter: 05/15/17 Time of Encounter: 10:45 - Assessment and plan (1) Elevated lactic acid level Current Visit: Yes Status: Acute Assessment and plan: Improved. No clear signs of sepsis. We will stop antibiotics. Most likely lactic acid elevated due to dehydration and metformin use. Patient reports drinking only coffee and soda and juices at home. He does not drink much water. Lactic acidosis is improved with IV hydration. (2) Recurrent falls Current Visit: Yes Status: Acute Assessment and plan: Patient with recurrent episodes of falls. Uncertain etiology. CT scan of the head does not show any acute stroke. We will consult physical therapy for evaluation. Patient will most likely need placement to skilled rehabilitation. (3) Left shoulder pain Current Visit: Yes Status: Acute Assessment and plan: This appears to be chronic shoulder pain with acute worsening. Imaging studies did not show any acute process. Orthopedics has been concentrated. We will follow the recommendations. Qualifiers: Chronicity: chronic Qualified Code(s): M25.512 - Pain in left shoulder; G89.29 - Other chronic pain; G89.29 - Other chronic pain (4) Type 2 diabetes mellitus Current Visit: Yes Status: Acute Assessment and plan: Well-controlled. Continue current insulin regimen Qualifiers: Diabetes mellitus complication status: without complication Diabetes mellitus network and threat support specialist insulin use: without alf use Qualified Code(s): E11.9 - Type 2 diabetes mellitus without complications (5) Anxiety Current Visit: Yes Status: Chronic Assessment and plan: Continue Remeron and BuSpar (6) Hypertension Current Visit: No Status: Chronic Assessment and plan: Blood pressure is well controlled at this time. Qualifiers: Hypertension type: essential hypertension Qualified Code(s): I10 - Essential (primary) hypertension (7) DVT prophylaxis Current Visit: No Status: Acute - Subjective Interval history: Patient had a fall earlier this morning while he was trying to get up from the bed side commode. He states that he fell on his right side and injured his right hip. He denies any dizziness or lightheadedness. He says he has balance issues and has been falling for several weeks. Also continues to have left shoulder pain. Complains of increased pain when he tries to lift his arm above his head. - Constitutional Vitals: Temp Pulse Resp BP Pulse Ox 98.2 F 88 14 114/76 98 05/15/17 15:40 05/15/17 15:40 05/15/17 15:40 05/15/17 15:40 05/15/17 15:40 General appearance: Present: A&O X 2, pleasant, no acute distress, obese, answers questions appropriately - Neck Neck exam general surgery: Present: supple, trachea midline. Absent: lymphadenopathy - Respiratory Respiratory exam: Present: CTAB. Absent: accessory muscle use, rales, rhonchi, wheezes - Cardiovascular Cardiovascular exam: Present: RRR, +S1, +S2. Absent: diastolic murmur, gallop, rubs, systolic murmur - GI/Abdominal GI/Abdominal exam: Present: normal bowel sounds, soft, no peritoneal signs. Absent: distended, tenderness - Extremities Exam Extremities exam: Present: tenderness (At left acromioclavicular joint), warm, radial pulses palpable and symmetrical. Absent: calf tenderness, cyanotic, pedal edema - Neurological Exam Neurological exam: Present: CN II-XII intact, oriented X3, no focal deficits, strengths equal and symetr throughout. Absent: facial droop, speech deficit Internal Medicine: Result - Labs CBC & Chem 7: 05/15/17 00:35 05/15/17 00:35 Labs: Short CBC 05/15/17 Range/Units 00:35 WBC 6.0 (4.3-11.1) K/mcL Hgb 13.4 D (12.9-16.9) g/dL Hct 39.8 (37.5-50.1) % Plt Count 124 L (140-400) K/mcL Neutrophils # 2.4 (1.6-8.9) K/mcL BMP 05/15/17 00:35 Sodium 141 Potassium 3.8 Chloride 109 H Carbon Dioxide 25 BUN 7 Creatinine 0.65 L Glucose 171 H Calcium 7.9 L Cardiac Enzymes 05/15/17 05/15/17 Range/Units 00:35 10:06 Troponin I < 0.03 < 0.03 (< 0.04) ng/mL Liver Function 05/15/17 Range/Units 00:35 Total Bilirubin 0.5 (0.3-1.0) mg/dL AST 14 (13-39) Units/L ALT 20 (7-52) Units/L Alkaline Phosphatase 54 (34-104) Units/L Albumin 3.3 L (3.5-5.7) g/dL - ABG Interpretation ABG results: PT/INR, D-dimer PT 12.1 Seconds (9.4-12.1) 05/15/17 00:35 - Impressions Impressions Head CT 05/15/17 07:56 IMPRESSION: No acute intracranial abnormality. D/ / Julian Farmer MD / Julian Farmer MD Interpreting Provider: Julian Farmer MD Hip/Pelvis X-Ray 05/15/17 07:58 IMPRESSION: No acute osseous abnormality. D/ / Julian Farmer MD / Julian Farmer MD Interpreting Provider: Julian Farmer MD Consult Discharge Plan - Plan Referrals: Jacey Bill CNP [Primary Care Provider] -
--- NOTE | 2017-05-15 16:48 | Orthopedic Consult Note ---
Date of Encounter: 05/15/17 Time of Encounter: 16:45 Assessment and Plan (1) Left shoulder pain Current Visit: Yes Status: Acute Chronic left shoulder pain status post multiple procedures We will have the patient follow up in outpatient with Dr. Bains or Dr. Yi No intervention at this time Qualifiers: Chronicity: chronic Qualified Code(s): M25.512 - Pain in left shoulder; G89.29 - Other chronic pain; G89.29 - Other chronic pain History of Present Illness Chief complaint: Left shoulder pain HPI: Mr. Luke is a 57 year old male history of chronic left shoulder pain for the past 4 years. The patient has had 4 surgeries to his left shoulder, initially starting at [facility] for rotator cuff repair, and finally having a left reverse total shoulder arthroplasty by Dr. Aponte at [facility] over a year ago. Patient is a chronic shoulder pain since. He has been followed by Drs. Bains and [facility] office last year; he no showed for his last appointment. Patient fell down yesterday complaining of shoulder pain was again. He was admitted for elevated lactic acid levels. According to patient he is concerned that he is unable to raise his arm up without pain, no change in baseline status. Past Med Surg Social Fam HX - Past Medical History Medical history: non-contributory, diabetes, hyperlipidemia, hypertension Psychiatric history: anxiety, bipolar, other - Past Surgical History Surgical History: herniorrhaphy, orthopedic, other - Social History Smoking Status: Current every day smoker Smokeless Tobacco Status: No Alcohol use: none Drug use: none - Family History Mother History Unknown: Yes Living Status: Hx Family Cancer: Yes Medications and Allergies Aspirin 81 mg PO DAILY 04/28/16 [History] Atorvastatin Calcium 40 mg PO DAILY 04/28/16 [History] Cholecalciferol (Vitamin D3) [Vitamin D3] 2,000 unit PO DAILY 04/28/16 [History] Divalproex (12 HR) [Depakote (12 HR)] 1,000 mg PO BID 04/28/16 [History] Docusate Sodium [Dok] 100 mg PO BID 04/28/16 [History] Metformin HCl [Glucophage] 1,000 mg PO BID 04/28/16 [History] diazePAM [Valium] 5 mg PO TID 04/28/16 [History] Acetaminophen [Tylenol] 650 mg PO Q6HR PRN #20 tablet 04/30/16 [Rx] Albuterol Sulfate [Proventil Hfa] 1 puff IH Q6H PRN 05/14/17 [History] Baclofen [Lioresal] 10 mg PO TID 05/14/17 [History] Buspirone HCl [Buspar] 5 mg PO BID 05/14/17 [History] Gabapentin [Neurontin] 1,200 mg PO TID 05/14/17 [History] Losartan [Cozaar] 12.5 mg PO DAILY 05/14/17 [History] Mirtazapine [Remeron] 30 mg PO HS 05/14/17 [History] Multivitamin [One Daily Essential] 1 tab PO DAILY 05/14/17 [History] [place]-3S/Dha/Epa/Fish Oil [Ultra [place]-3 Softgel] 1 cap PO DAILY 05/14/17 [ History] 3 Allergy/AdvReac Type Severity Reaction Status Date / Time tramadol AdvReac Itching Verified 05/14/17 09:49 All Systems Reviewed: A 10-system review of systems was performed and is negative for pertinent findings except as documented above in the HPI. Physical Exam - Constitutional Vitals: Temp Pulse Resp BP Pulse Ox 98.2 F 88 14 114/76 98 05/15/17 15:40 05/15/17 15:40 05/15/17 15:40 05/15/17 15:40 05/15/17 15:40 - Shoulder left Appearance shoulder: normal (Old surgical scar noted) Tenderness w/ palpation shoulder: none Pain with motion: Yes ROM: abduction: abnormal ROM: forward flexion: abnormal ROM: extension: abnormal ROM: adduction: abnormal ROM: internal rotation: abnormal ROM: external rotation: abnormal Crepitus with motion: No Strength: abduction: Weak Strength: forward flexion: Weak Strength: extension: Weak Strength: adduction: Weak Strength: internal rotation: Weak Strength: external rotation: Weak Results - Labs Result Diagrams: 05/15/17 00:35 05/15/17 00:35 Labs: Abnormal lab results Plt Count 124 K/mcL (140-400) L 05/15/17 00:35 VBG pO2 56 mmHg (25-50) H 05/14/17 11:18 Carboxyhemoglobin 8.3 % (0-5) H 05/14/17 11:05 Chloride 109 mEq/L (98-107) H 05/15/17 00:35 Creatinine 0.65 mg/dL (0.70-1.30) L 05/15/17 00:35 Glucose 171 mg/dL (70-105) H 05/15/17 00:35 POC Glucose 123 (58-89) H 05/14/17 21:19 Lactic Acid 3.1 mmol/L (0.5-2.2) H 05/14/17 18:46 Calcium 7.9 mg/dL (8.6-10.3) L 05/15/17 00:35 Magnesium 1.2 mg/dL (1.6-2.6) L 05/15/17 00:35 Serum Total Protein 5.5 g/dL (6.4-8.9) L 05/15/17 00:35 Albumin 3.3 g/dL (3.5-5.7) L 05/15/17 00:35 Globulin 2.2 g/dL (2.4-3.5) L 05/15/17 00:35 HDL Cholesterol 29 mg/dL (40-59) L 05/15/17 00:35 Beta-Hydroxybutyric Acd 0.00 mmol/L (0.02-0.27) L 05/14/17 11:11 Ur Specific [place] > 1.030 (1.010-1.025) H 05/14/17 15:24 Urine Protein 30 mg/dL (Neg-Trace) H 05/14/17 15:24 Urine Glucose (UA) 250 mg/dL (Normal) H 05/14/17 15:24 Urine Ketones 15 mg/dL (Negative) H 05/14/17 15:24 Urine Bilirubin Small (Negative) H 05/14/17 15:24 Ur Squamous Epith Cells Many per lpf (None-Few) H 05/14/17 15:24 Salicylates < 5.0 mg/dL (15.0-30.0) L 05/14/17 11:11 Acetaminophen < 1.0 mcg/mL (10-30) L 05/14/17 11:11 U Benzodiazepines Scrn Positive ng/mL ([id number]) H 05/14/17 15:24 H & H 05/15/17 Range/Units 00:35 Hgb 13.4 D (12.9-16.9) g/dL Hct 39.8 (37.5-50.1) % All other labs normal. - Diagnostic results Elbow x-ray: report reviewed, image reviewed (Implants intact, no signs of loosening, no new fractures) Consult Discharge Plan - Plan Referrals: Jacey Bill CNP [Primary Care Provider] -
[2017-05-15] MEDS ORDERED: Aminoglycoside Consult 1 EACH MC ONE (18:29)
[2017-05-16 02:42] VITALS: BP 96/63
--- NOTE | 2017-05-17 15:40 | Electrocardiograph Report ---
[place] [id number] Test Date: 2017-05-14 Pat Name: Caleb Luke Department: 103 Room: 2NE33 Gender: Youth Pastor: AM : 1960 Requested By: Alexandre Villela Order Number: [id number] Reading MD: Brook Liu Measurements Intervals [place] Rate: 104 P: 42 IL: 155 QRS: -71 QRSD: 90 T: 36 QT: 311 QTc: 371 Interpretive Statements SINUS TACHYCARDIA LOW QRS VOLTAGE IN PRECORDIAL LEADS [QRS DEFLECTION < 1.0 mV IN CHEST LEADS] LEFT ANTERIOR FASCICULAR BLOCK [QRS AXIS <= -45, QR IN I, RS IN II] Electronically Signed On 05-17-2017 15:39:34 EST by Brook Liu
== END 2017-05-15 18:30 | disposition left against medical advice (07) | DRG 641 ==
LOC: EMEROO 09:37 → 2NENU 09:37 → SUATTDRO 20:01 → INTOOBSV 20:01 → OBSVTOIN 20:01 → 2NENU 21:10
PROVIDERS: ADMIT Internal Medicine; ATTEND Internal Medicine

== ENCOUNTER 2017-05-16 09:49 | Observation (INO) ==
[2017-05-16 11:05] LABS: Basophils % 0.3 %; Eosinophils # 0.2 K/mcL (0.0-0.6); Eosinophils % 2.7 %; Hematocrit 39.8 % (37.5-50.1); Hemoglobin 13.3 g/dL (12.9-16.9); Immature Granulocytes % 0.3 % (0-4); Immature Platelets 6.6 % (1.1-6.1); Lymphocytes # 1.9 K/mcL (0.6-4.6); Lymphocytes % 32.1 %; Mean Corpuscular HGB Conc 33.4 g/dL (31.6-35.5); Mean Corpuscular Hemoglobin 29.1 pg (28.0-33.3); Mean Corpuscular Volume 87.1 fL (83.0-100.0); Mean Platelet Volume 10.8 fL (9.4-12.4); Monocytes # 0.5 K/mcL (0.0-1.3); Monocytes % 9.1 %; Neutrophils # 3.2 K/mcL (1.6-8.9); Platelet Count 119 K/mcL (140-400); Red Blood Count 4.57 M/mcL (4.19-5.50); Red Cell Distribution Width 13.2 % (11.5-14.5); Segmented Neutrophils % 55.5 %
[2017-05-16 11:22] LABS: BUN/Creatinine Ratio 10 (6-26); Blood Urea Nitrogen 7 mg/dL (6-20); Calcium 8.4 mg/dL (8.6-10.3); Carbon Dioxide 26 mEq/L (23-29); Chloride 107 mEq/L (98-107); Glucose 132 mg/dL (70-105); Osmolality,Calculated 288 (280-300); Potassium 3.7 mEq/L (3.5-5.1); Sodium 139 mEq/L (136-145); eGFR For African Americans > 60 (> 60); eGFR For Non-African Americans > 60 (> 60)
--- NOTE | 2017-05-16 11:44 | Emergency Department Note ---
Disposition Clinical Impression: Frequent falls Fatigue Qualifiers: Fatigue type: unspecified Qualified Code(s): R53.83 - Other fatigue Disposition: Admitted As Inpatient Condition: Good General Adult HPI - General Chief complaint: ED Fall Stated complaint: FallS Time Seen by Provider: 05/16/17 10:11 Source: patient Limitations: altered mental status Nursing Notes Reviewed: Yes Vital Signs Reviewed: Yes - History of Present Illness HPI Narrative: 57-year-old male who reports frequent falls and fatigue. He left AMA from the hospital after being admitted for lactic acidosis of unclear etiology. However he was taking metformin which is potential cause a lactic acidosis. He had a negative monoxide screen. He was not acidotic. He left AMA from the hospital to take care of things at home. He presented early this morning to the emergency department due to falls. He had a headache and neck pain. He had a CT scan of the head and neck which was negative and he was discharged. He went and waited in the waiting room and then re-presented due to inability to care for himself at home. He said they are working on placing him in a nursing facility when he left AMA. He has no new complaints since when he was evaluated this morning by the other physician. Pain Scale: 0 Improves with: nothing Worsens with: nothing Associated symptoms: Reports: denies other symptoms Treatments Prior to Arrival: none - Related Data Home Medications Medication Instructions Recorded Confirmed Aspirin 81 mg PO DAILY 04/28/16 05/16/17 Atorvastatin Calcium 40 mg PO HS 04/28/16 05/16/17 Cholecalciferol (Vitamin D3) 2,000 unit PO DAILY 04/28/16 05/16/17 [Vitamin D3] Docusate Sodium [Dok] 100 mg PO BID 04/28/16 05/16/17 Metformin HCl [Glucophage] 1,000 mg PO BID 04/28/16 05/16/17 Albuterol Sulfate [Proventil Hfa] 2 puff IH Q4H PRN 05/14/17 05/16/17 Buspirone HCl [Buspar] 5 mg PO BID 05/14/17 05/16/17 Losartan [Cozaar] 12.5 mg PO DAILY 05/14/17 05/16/17 Mirtazapine [Remeron] 30 mg PO HS 05/14/17 05/16/17 Multivitamin [One Daily Essential] 1 tab PO DAILY 05/14/17 05/16/17 Acetaminophen [Tylenol] 650 mg PO Q8H PRN 05/16/17 05/16/17 Budesonide/Formoterol 160/4.5 1 puff IH BID 05/16/17 05/16/17 [Symbicort 160/4.5] Divalproex (24 HR) [Depakote ER 1,000 mg PO BID 05/16/17 05/16/17 (24 HR)] [place]-3/Dha/Epa/Fish Oil [Fish Oil 1,000 mg PO DAILY 05/16/17 05/16/17 1,000 mg Softgel] Previous Rx's Medication Instructions Recorded Gabapentin [Neurontin] 600 mg PO TID #45 capsule 05/18/17 Allergies Allergy/AdvReac Type Severity Reaction Status Date / Time tramadol AdvReac Itching Verified 05/16/17 09:55 All systems ED: reviewed and negative except as stated. Constitutional: Denies: fever ENT ED: Denies: throat pain Cardiovascular: Denies: chest pain Respiratory: Denies: cough Gastrointestinal: Denies: abdominal pain, nausea, vomiting Integumentary: Denies: rash Past Medical History - Past Medical History Medical history: Reports: non-contributory, diabetes, hyperlipidemia, hypertension Surgical history: Reports: herniorrhaphy, orthopedic, other Psychiatric history: Reports: anxiety, bipolar, other - Social History Smoking Status: Current every day smoker Smokeless Tobacco Status: No Alcohol use: Reports: none Drug use: Reports: none Physical Exam - General Limitations: altered mental status General appearance: lethargic - Head Head exam: atraumatic - Eye Eye exam: Present: normal appearance, PERRL - ENT ENT exam: normal exam - Neck Neck exam: Present: normal inspection. Absent: tenderness - Respiratory Respiratory exam: Present: normal lung sounds bilaterally. Absent: respiratory distress - Cardiovascular Cardiovascular exam: Present: regular rate, normal rhythm - Abdominal Exam Abdominal exam: Present: soft, Non-Tender - Extremities Exam Extremities exam: Present: normal inspection - Neurological Exam Neurological exam: Present: other (Sleepy) - Skin Skin exam: Present: warm, dry Course Course Narrative: He falls asleep during my interview. This is identical to how he presented when I saw him with Dr. Villela a few days ago. At that time he had significant lactate elevation which is not present today. He had a CT head and cervical spine earlier this morning which did not show acute abnormality. When I asked him why he presented back to the emergency department he says that he just wants to "get better ". However he cannot tell me what is wrong. He has been falling for months at home. I asked him if he is able take care of himself at home which he says he cannot. We will admitted to the hospital for difficulty with ambulation, frequent falls, inability to care for himself. Vital Signs Temperature 97.9 F 05/16/17 09:55 Pulse Rate 94 05/16/17 09:55 Respiratory Rate 15 05/16/17 09:55 Blood Pressure 110/74 05/16/17 09:55 O2 Sat by Pulse Oximetry 95 05/16/17 09:55 Temperature 97.4 F L 05/18/17 07:47 Pulse Rate 74 05/18/17 07:47 Respiratory Rate 16 05/18/17 10:26 Blood Pressure 127/85 05/18/17 07:47 O2 Sat by Pulse Oximetry 92 05/18/17 10:26 Oxygen Delivery Oxygen Delivery Room Air Medical Decision Making - Medical Records Medical records reviewed: Yes I reviewed the patient's medical records. - Lab Data Lab results reviewed: Yes I reviewed the patient's lab results. Result diagrams: 05/17/17 04:03 05/17/17 04:03 Lab Results 05/16/17 05/16/17 05/16/17 Range/Units 10:40 10:58 10:58 WBC 5.9 (4.3-11.1) K/mcL RBC 4.57 (4.19-5.50) M/mcL Hgb 13.3 (12.9-16.9) g/dL Hct 39.8 (37.5-50.1) % MCV 87.1 (83.0-100.0) fL MCH 29.1 (28.0-33.3) pg MCHC 33.4 (31.6-35.5) g/dL RDW 13.2 (11.5-14.5) % Plt Count 119 L (140-400) K/mcL MPV 10.8 (9.4-12.4) fL Immature Gran % 0.3 (0-4) % Seg Neutrophils % 55.5 % Lymphocytes % 32.1 % Monocytes % 9.1 % Eosinophils % 2.7 % Basophils % 0.3 % Neutrophils # 3.2 (1.6-8.9) K/mcL Lymphocytes # 1.9 (0.6-4.6) K/mcL Monocytes # 0.5 (0.0-1.3) K/mcL Eosinophils # 0.2 (0.0-0.6) K/mcL Basophils # 0.0 (0.0-0.2) K/mcL Immature Plt Fraction 6.6 H (1.1-6.1) % Sodium 139 (136-145) mEq/L Potassium 3.7 (3.5-5.1) mEq/L Chloride 107 (98-107) mEq/L Carbon Dioxide 26 (23-29) mEq/L BUN 7 (6-20) mg/dL Creatinine 0.70 (0.70-1.30) mg/dL Est GFR ( Amer) > 60 (> 60) Est GFR (Non-Af Amer) > 60 (> 60) BUN/Creatinine Ratio 10 (6-26) Glucose 132 H (70-105) mg/dL POC Glucose 129 H (58-89) Calculated Osmolality 288 (280-300) Lactic Acid (0.5-2.2) mmol/L Calcium 8.4 L (8.6-10.3) mg/dL Urine Color (Yellow) Urine Clarity (Clear) Urine pH (5.0-8.0) pH Units Ur Specific [place] (1.010-1.025) Urine Protein (Neg-Trace) mg/dL Urine Glucose (UA) (Normal) mg/dL Urine Ketones (Negative) mg/dL Urine Blood (Negative) Urine Nitrite (Negative) Urine Bilirubin (Negative) Urine Urobilinogen (Normal) mg/dL Ur Leukocyte Esterase (Negative) Ur Culture Indicated? (NO) Urine Opiates Screen (Zjhrpz=059) ng/mL Ur Barbiturates Screen (Rueoev=322) ng/mL Ur Phencyclidine Scrn (Cutoff=25) ng/mL Ur Amphetamines Screen (Vgxkzt=7238) ng/mL U Benzodiazepines Scrn (Ximyxw=374) ng/mL Urine Cocaine Screen (Cutoff= 300) ng/mL U Marijuana (THC) Screen (Cutoff = 50) ng/mL 05/16/17 05/16/17 05/16/17 Range/Units 10:58 11:39 11:39 WBC (4.3-11.1) K/mcL RBC (4.19-5.50) M/mcL Hgb (12.9-16.9) g/dL Hct (37.5-50.1) % MCV (83.0-100.0) fL MCH (28.0-33.3) pg MCHC (31.6-35.5) g/dL RDW (11.5-14.5) % Plt Count (140-400) K/mcL MPV (9.4-12.4) fL Immature Gran % (0-4) % Seg Neutrophils % % Lymphocytes % % Monocytes % % Eosinophils % % Basophils % % Neutrophils # (1.6-8.9) K/mcL Lymphocytes # (0.6-4.6) K/mcL Monocytes # (0.0-1.3) K/mcL Eosinophils # (0.0-0.6) K/mcL Basophils # (0.0-0.2) K/mcL Immature Plt Fraction (1.1-6.1) % Sodium (136-145) mEq/L Potassium (3.5-5.1) mEq/L Chloride (98-107) mEq/L Carbon Dioxide (23-29) mEq/L BUN (6-20) mg/dL Creatinine (0.70-1.30) mg/dL Est GFR ( Amer) (> 60) Est GFR (Non-Af Amer) (> 60) BUN/Creatinine Ratio (6-26) Glucose (70-105) mg/dL POC Glucose (58-89) Calculated Osmolality (280-300) Lactic Acid 1.5 (0.5-2.2) mmol/L Calcium (8.6-10.3) mg/dL Urine Color Yellow (Yellow) Urine Clarity Clear (Clear) Urine pH 6.5 (5.0-8.0) pH Units Ur Specific [place] 1.009 L (1.010-1.025) Urine Protein Negative (Neg-Trace) mg/dL Urine Glucose (UA) Normal (Normal) mg/dL Urine Ketones Trace H (Negative) mg/dL Urine Blood Negative (Negative) Urine Nitrite Negative (Negative) Urine Bilirubin Negative (Negative) Urine Urobilinogen Normal (Normal) mg/dL Ur Leukocyte Esterase Negative (Negative) Ur Culture Indicated? NO (NO) Urine Opiates Screen Positive H (Nnkixq=074) ng/mL Ur Barbiturates Screen Negative (Gmyhkh=527) ng/mL Ur Phencyclidine Scrn Negative (Cutoff=25) ng/mL Ur Amphetamines Screen Negative (Pjhyfd=3857) ng/mL U Benzodiazepines Scrn Positive H (Zdqnjb=016) ng/mL Urine Cocaine Screen Negative (Cutoff= 300) ng/mL U Marijuana (THC) Screen Negative (Cutoff = 50) ng/mL - Radiology Data Radiology results reviewed: Yes I reviewed the patient's radiology results. Attestation Statement - Attestation Attestation: I, Siva Gama, examined this patient and my medical decision-making was reviewed with the DECORATOR INSPECTOR/PA/Advanced Practice Nurse/Resident Physician. I agree with the documented findings, disposition and treatment plan as described except to the extent set forth below. 57-year-old male to be evaluated for altered mental status and fatigue. Patient was just seen in the emergency department within the past few hours prior to my evaluation. He has had recent multiple falls. Had a negative head CT during his recent most recent evaluation. He since that in the waiting room and was observed by [employer] and [employer] and he continued to fall asleep all filing phone numbers, was unable to ambulate appropriately. Patient is unable to give a significant history during my evaluation. He has a history of similar circumstances for which she was admitted within the past week. Patient has a significant other who is disabled and has multiple medications. Patient denies drug use, medication overdose. He denies suicidal or homicidal ideation or audiovisual or visual hallucinations. Patient will be admitted hospital for altered mental status.
[2017-05-16 11:46] LABS: Bilirubin,Urine Negative (Negative); Blood,Urine Negative (Negative); Clarity,Urine Clear (Clear); Color,Urine Yellow (Yellow); Glucose,Urine (UA) Normal (Normal); Ketones,Urine Trace mg/dL (Negative); Leukocyte Esterase,Urine Negative (Negative); Nitrite,Urine Negative (Negative); PH,Urine 6.5 pH Units (5.0-8.0); Protein,Urine Negative (Neg-Trace); Specific Gravity,Urine 1.009 (1.010-1.025); Urobilinogen,Urine Normal (Normal)
[2017-05-16 11:52] LABS: Amphetamine Screen,Urine Negative ng/mL (Cutoff=1000); Barbiturate Screen,Urine Negative ng/mL (Cutoff=200); Benzodiazepines Screen,Urine Positive ng/mL (Cutoff=200); Cannabinoid Screen,Urine Negative ng/mL (Cutoff = 50); Cocaine Screen,Urine Negative ng/mL (Cutoff= 300); Opiate Screen,Urine Positive ng/mL (Cutoff=300); Phencyclidine Screen,Urine Negative ng/mL (Cutoff=25)
[2017-05-16] MEDS ORDERED: Naloxone 0.4 MG/ML INJ IVP PRN (12:46)
--- NOTE | 2017-05-16 13:10 | Internal Med History&Physical ---
Addendum entered and electronically signed by Keagan Mccann 05/17/17 12:21: Additionaly DX include Toxic encephalopthy secondary to polypharmacy -consult SS, see [facility]; Contact mental health clinic prior to DC to inform them of the change in psychotropic medications -Reduce psychptropic medication doses- patient mental status improved with dose reduction -He verbalized to me that he wishes to obtain additional pain medications; concern for substance abuse Substance abuse- see plan above Ambulatory dysfunction- see plan above Original Note: <Keagan Mccann - Last Filed: 05/16/17 16:50> Date of Encounter: 05/16/17 Time of Encounter: 13:08 Assessment and Plan (1) Recurrent falls Current visit: Yes Status: Acute Presents today d/t multiple falls at home. I suspect this is d/t polypharmacy He is somnolent per my assessment. Review of his home med list finds multiple sedatives I also suspect that this is contributing to his falls -hold sedative medications as appropriate -decrease dose of gabapentin from 1,200 TID to 600 TID -Consider decreasing Depakote when patient is alert enough to discuss why he takes this medication; I presume for bipolar d/t his hx -obtain PT/OT, SS consult; he will likely need placement to an ECF or inpatient rehab d/t self care deficits -Continuous tele, spo2 monitoring -CBCD, BMP in the morning -Respiratory support per NC; maintain spo2 >92% (2) Somnolence Current visit: Yes Status: Acute see plan above (3) Polypharmacy Current visit: Yes Status: Acute see plan above (4) Diabetes Current visit: Yes Status: Acute H/o DM II. Takes metformin at home; there is some concern as to whether or not he takes it appropriately. Recent admission with lactic acidosis thought to be caused by inappropriate metformin use. -hold metformin while inpatient -start LSSIC Q6hrs while NPO, change to AC/HS when diet is resumed Qualifiers: Diabetes mellitus type: type 2 Diabetes mellitus complication status: without complication Diabetes mellitus penitentiary insulin use: without penitentiary use Qualified Code(s): E11.9 - Type 2 diabetes mellitus without complications (5) Hypertension Current visit: Yes Status: Chronic BP stable takes cozaar at home; resume at home dose Qualifiers: Hypertension type: essential hypertension Qualified Code(s): I10 - Essential (primary) hypertension (6) DVT prophylaxis Current visit: Yes Status: Acute Heparin 5000 units SC BID Internal Medicine - H&P: HPI Chief complaint: frequent falls, somnolence, polypharmacy Admitted From: Home Plans for Post Hospital Care: Home History of present illness: Mr. Luke is a 57 year old male with a PMH of DM, HLD, HTN, anxiety and bipolar disorder. He presents to the hospital this afternoon d/t frequent falls. He was admitted on 05/14/17 d/t elevated lactic acid levels of unclear and noninfectious etioloty; presumed to be caused by taking his metformin inappropriately. Additionally he was also here at that time d/t frequent falls. He was treated with IVF and metformin was held and lactic acidosis improved. He then signed out AMA yesterday. However, he returns today following an additional fall. He had a CT scan of head and C-spine which were unremarkable and he was discharged form the ED. However, the patient returned a few hours later with somnolence and was concerned that he is unable to take care of himself. He has no new complaints since his initial evaluation. His labwork remains unremarkable. Past Med Surg Social Fam HX - Past Medical History Medical history: non-contributory, diabetes, hyperlipidemia, hypertension Psychiatric history: anxiety, bipolar, other - Past Surgical History Surgical History: herniorrhaphy, orthopedic, other - Social History Smoking Status: Current every day smoker Smokeless Tobacco Status: No Alcohol use: none Drug use: none - Family History Mother Living Status: Hx Family Cancer: Yes Internal Medicine - H&P: Meds Aspirin 81 mg PO DAILY 04/28/16 [History] Atorvastatin Calcium 40 mg PO HS 04/28/16 [History] Cholecalciferol (Vitamin D3) [Vitamin D3] 2,000 unit PO DAILY 04/28/16 [History] Docusate Sodium [Dok] 100 mg PO BID 04/28/16 [History] Metformin HCl [Glucophage] 1,000 mg PO BID 04/28/16 [History] diazePAM [Valium] 5 mg PO TID 04/28/16 [History] Albuterol Sulfate [Proventil Hfa] 2 puff IH Q4H PRN 05/14/17 [History] Baclofen [Lioresal] 10 mg PO TID 05/14/17 [History] Buspirone HCl [Buspar] 5 mg PO BID 05/14/17 [History] Gabapentin [Neurontin] 1,200 mg PO TID 05/14/17 [History] Losartan [Cozaar] 12.5 mg PO DAILY 05/14/17 [History] Mirtazapine [Remeron] 30 mg PO HS 05/14/17 [History] Multivitamin [One Daily Essential] 1 tab PO DAILY 05/14/17 [History] Acetaminophen [Tylenol] 650 mg PO Q8H PRN 05/16/17 [History] Budesonide/Formoterol 160/4.5 [Symbicort 160/4.5] 1 puff IH BID 05/16/17 [ History] Divalproex (24 HR) [Depakote ER (24 HR)] 1,000 mg PO BID 05/16/17 [History] [place]-3/Dha/Epa/Fish Oil [Fish Oil 1,000 mg Softgel] 1,000 mg PO DAILY 05/16/17 [History] 3 Allergy/AdvReac Type Severity Reaction Status Date / Time tramadol AdvReac Itching Verified 05/16/17 09:55 All Systems PM: A 10-system review of systems was performed and is negative for pertinent findings except as documented above in the HPI. Review of systems: REVIEW OF SYSTEMS GENERAL: Negative for any nausea, vomiting, fevers, chills, or weight loss. NEUROLOGIC: Negative for any blurry vision, blind spots, double vision, facial asymmetry, dysphagia, dysarthria, hemiparesis, hemisensory deficits, vertigo, denies extremity weakness, or gait instability. Admits to frequents falls. HEENT: Negative for any head trauma, neck trauma, neck stiffness, photophobia, phonophobia, sinusitis, rhinitis. CARDIAC: Negative for any chest pain, dyspnea on exertion, paroxysmal nocturnal dyspnea, peripheral edema. PULMONARY: Negative for any shortness of breath, wheezing, COPD, or TB exposure. GASTROINTESTINAL: Negative for any abdominal pain, nausea, vomiting, bright red blood per rectum, melena. GENITOURINARY: Negative for any dysuria, hematuria, incontinence. INTEGUMENTARY: Negative for any rashes, cuts, insect bites. RHEUMATOLOGIC: Negative for any joint pains, photosensitive rashes, history of vasculitis or kidney problems. HEMATOLOGIC: Negative for any abnormal bruising, frequent infections or bleeding. - Neurological Neurological ROS: confusion, frequent falls, headache(s) - Constitutional Vitals: Temp Pulse Resp BP Pulse Ox 97.9 F 85 16 102/69 96 05/16/17 09:55 05/16/17 12:28 05/16/17 12:28 05/16/17 12:28 05/16/17 12:28 General appearance: Present: cooperative, answers questions appropriately Exam: He is cooperative, but somnolent. However he is arousable and oriented to place , person and situation. he was able to participate in the examination but his participation is limited d/t somnolence. - Head Head exam: Present: atraumatic, normocephalic - Eye Eye exam: Present: PERRL (2mm), conjuntiva pink, sclera anicteric - Neck Neck exam general surgery: Present: supple, trachea midline. Absent: lymphadenopathy - Respiratory Respiratory exam: Present: CTAB. Absent: accessory muscle use, rales, rhonchi, wheezes - Cardiovascular Cardiovascular exam: Present: RRR, +S1, +S2. Absent: diastolic murmur, gallop, rubs, systolic murmur - GI/Abdominal GI/Abdominal exam: Present: normal bowel sounds, soft, no peritoneal signs. Absent: distended, tenderness - Extremities Exam Extremities exam: Present: warm, radial pulses palpable and symmetrical. Absent : calf tenderness, cyanotic, pedal edema - Neurological Exam Neurological exam: Present: altered (solmnolent ) - Expanded Neurological Exam Patient oriented to: Present: person, place, time Coma Scale Eye Opening: To Voice Coma Scale Motor Response: Obeys Commands Coma Scale Verbal Response: Oriented Coma Scale Total: 14 - Skin Skin exam: Present: dry, intact Internal Med - H&P Results - Labs CBC & Chem 7: 05/16/17 10:58 05/16/17 10:58 Labs: Short CBC 05/16/17 Range/Units 10:58 WBC 5.9 (4.3-11.1) K/mcL Hgb 13.3 (12.9-16.9) g/dL Hct 39.8 (37.5-50.1) % Plt Count 119 L (140-400) K/mcL Neutrophils # 3.2 (1.6-8.9) K/mcL BMP 05/16/17 10:58 Sodium 139 Potassium 3.7 Chloride 107 Carbon Dioxide 26 BUN 7 Creatinine 0.70 Glucose 132 H Calcium 8.4 L Urine 05/16/17 Range/Units 11:39 Urine Color Yellow (Yellow) Urine Clarity Clear (Clear) Urine pH 6.5 (5.0-8.0) pH Units Ur Specific [place] 1.009 L (1.010-1.025) Urine Protein Negative (Neg-Trace) mg/dL Urine Glucose (UA) Normal (Normal) mg/dL - Diagnostic Studies CT scan - head Status: image reviewed by me Additional comments: no acute intracranial abnormality Other Images Status: image reviewed by me Additional comments: CT of c-spine with no acute abnormalities <Eliecer Rodriges P - Last Filed: 05/17/17 18:25> Date of Encounter: 05/17/17 Internal Medicine - H&P: HPI History of present illness: Mr. Luke is a 57 year old male All Systems PM: A 10-system review of systems was performed and is negative for pertinent findings except as documented above in the HPI. - Constitutional Vitals: Temp Pulse Resp BP Pulse Ox 98.0 F 82 18 111/75 93 05/17/17 15:10 05/17/17 15:10 05/17/17 15:10 05/17/17 15:10 05/17/17 15:10 Internal Med - H&P Results - Labs CBC & Chem 7: 05/17/17 04:03 05/17/17 04:03 Labs: Short CBC 05/17/17 Range/Units 04:03 WBC 3.6 L (4.3-11.1) K/mcL Hgb 13.4 (12.9-16.9) g/dL Hct 39.6 (37.5-50.1) % Plt Count 125 L (140-400) K/mcL [facility] 05/17/17 04:03 Sodium 144 Potassium 3.8 Chloride 110 H Carbon Dioxide 27 BUN 8 Creatinine 0.66 L Glucose 138 H Calcium 8.5 L - Attending Attestation I examined this patient and my medical decision-making was reviewed with the Resident Physician/COMBINED RAIL OPERATOR. I agree with the documented findings, disposition and treatment plan as described except to the extent set forth below.
[2017-05-16] MEDS ORDERED: D5% in Water 1,000 ML IVC PRN (13:24)
[2017-05-16] MEDS ORDERED: Dextrose Gel 15 GM/37.5 ML TUBE PO PRN ×2 (13:24)
[2017-05-16] MEDS ORDERED: *HR* Dextrose 50 % in Water (Syg) 50 ML SYRINGE IVP PRN (13:24)
[2017-05-16] MEDS: Gabapentin 300 MG CAPSULE PO SCH ×2 (16:27→19:46)
[2017-05-16] MEDS: *HR* Heparin 5,000 UNIT/ML VIAL SQ SCH (18:38)
[2017-05-16] MEDS: Insulin LISPRO 300 UNITS/3 ML VIAL SQ SCH (18:40)
[2017-05-16] MEDS: Divalproex (24 HR) 500 MG TABLET PO SCH (19:46)
[2017-05-16] MEDS: Mirtazapine 15 MG TABLET PO SCH (19:47)
[2017-05-16] MEDS: Budesonide/Formoterol 160/4.5 MDI IH SCH (22:14)
[2017-05-17] MEDS ORDERED: Dextrose Gel 15 GM/37.5 ML TUBE PO PRN ×2 (00:43)
[2017-05-17] MEDS ORDERED: D5% in Water 1,000 ML IVC PRN (00:43)
[2017-05-17] MEDS ORDERED: *HR* Dextrose 50 % in Water (Syg) 50 ML SYRINGE IVP PRN (00:43)
[2017-05-17] MEDS: Insulin LISPRO 300 UNITS/3 ML VIAL SQ SCH ×4 (00:55→17:23)
[2017-05-17 05:00] LABS: Hematocrit 39.6 % (37.5-50.1); Hemoglobin 13.4 g/dL (12.9-16.9); Mean Corpuscular HGB Conc 33.8 g/dL (31.6-35.5); Mean Corpuscular Hemoglobin 29.3 pg (28.0-33.3); Mean Corpuscular Volume 86.5 fL (83.0-100.0); Mean Platelet Volume 11.5 fL (9.4-12.4); Platelet Count 125 K/mcL (140-400); Red Blood Count 4.58 M/mcL (4.19-5.50); Red Cell Distribution Width 13.2 % (11.5-14.5)
[2017-05-17] MEDS: *HR* Heparin 5,000 UNIT/ML VIAL SQ SCH ×2 (05:00→17:23)
[2017-05-17 05:17] LABS: BUN/Creatinine Ratio 12 (6-26); Blood Urea Nitrogen 8 mg/dL (6-20); Calcium 8.5 mg/dL (8.6-10.3); Carbon Dioxide 27 mEq/L (23-29); Chloride 110 mEq/L (98-107); Glucose 138 mg/dL (70-105); Osmolality,Calculated 299 (280-300); Potassium 3.8 mEq/L (3.5-5.1); Sodium 144 mEq/L (136-145); eGFR For African Americans > 60 (> 60); eGFR For Non-African Americans > 60 (> 60)
[2017-05-17] MEDS: Acetaminophen 325 MG TABLET PO PRN ×2 (05:47→14:49)
[2017-05-17] MEDS: Budesonide/Formoterol 160/4.5 MDI IH SCH ×2 (07:55→20:19)
[2017-05-17] MEDS: Cholecalciferol (D-3) 1,000 UNIT TABLET PO SCH (08:42)
[2017-05-17] MEDS: Gabapentin 300 MG CAPSULE PO SCH ×3 (08:42→19:52)
[2017-05-17] MEDS: Aspirin 81 MG TAB.CHEW PO SCH (08:42)
[2017-05-17] MEDS: Divalproex (24 HR) 500 MG TABLET PO SCH ×2 (08:43→19:52)
[2017-05-17] MEDS: (Omega-3/Dha/Epa/Fish Oil [Fish Oil 1,000 Mg Softgel]) PO SCH (08:43)
--- NOTE | 2017-05-17 15:37 | Internal Med Progress Note ---
Date of Encounter: 05/17/17 Time of Encounter: 10:10 - Assessment and plan (1) Acute metabolic encephalopathy Current Visit: Yes Status: Resolved Assessment and plan: Acute metabolic encephalopathy likely due to polypharmacy and multiple psychotropic drugs. This has now improved. Patient's medications have been readjusted and his gabapentin dose has been decreased. Appears to be doing better now. Will continue to monitor. (2) Recurrent falls Current Visit: Yes Status: Acute Assessment and plan: Has been evaluated by physical therapy. Recommended placement to rehabilitation. precast worker consultation. We will make arrangements for this. (3) Diabetes Current Visit: Yes Status: Chronic Assessment and plan: Fairly controlled. Continue current insulin regimen. Patient had presented with severe lactic acidosis during his last hospitalization here. Likely from use of metformin while the patient was dehydrated. This has resolved. Qualifiers: Diabetes mellitus type: type 2 Diabetes mellitus complication status: without complication Diabetes mellitus coal chute worker insulin use: without coal chute worker use Qualified Code(s): E11.9 - Type 2 diabetes mellitus without complications (4) Hypertension Current Visit: Yes Status: Chronic Assessment and plan: Blood pressure is well controlled at this time. Qualifiers: Hypertension type: essential hypertension Qualified Code(s): I10 - Essential (primary) hypertension (5) Left shoulder pain Current Visit: No Status: Acute Qualifiers: Chronicity: chronic Qualified Code(s): M25.512 - Pain in left shoulder; G89.29 - Other chronic pain; G89.29 - Other chronic pain (6) Polypharmacy Current Visit: Yes Status: Acute Assessment and plan: Valium is currently held. Continue gabapentin at a lower dose. Continue Depakote and BuSpar. (7) DVT prophylaxis Current Visit: Yes Status: Acute Assessment and plan: On subcutaneous heparin - Subjective Interval history: Patient is awake and alert. More awake and oriented today. Complains of back pain and left shoulder pain. Which is chronic in nature. Denies any shortness of breath or chest pain. No nausea or vomiting. - Constitutional Vitals: Temp Pulse Resp BP Pulse Ox 98.3 F 69 16 126/81 92 05/17/17 11:22 05/17/17 11:22 05/17/17 11:22 05/17/17 11:22 05/17/17 11:22 General appearance: Present: cooperative, answers questions appropriately - Neck Neck exam general surgery: Present: supple, trachea midline. Absent: lymphadenopathy - Respiratory Respiratory exam: Present: CTAB. Absent: accessory muscle use, rales, rhonchi, wheezes - Cardiovascular Cardiovascular exam: Present: RRR, +S1, +S2. Absent: diastolic murmur, gallop, rubs, systolic murmur - GI/Abdominal GI/Abdominal exam: Present: normal bowel sounds, soft, no peritoneal signs. Absent: distended, tenderness - Extremities Exam Extremities exam: Present: tenderness (Left superior acromioclavicular joint), warm, radial pulses palpable and symmetrical. Absent: calf tenderness, cyanotic , pedal edema Internal Medicine: Result - Labs CBC & Chem 7: 05/17/17 04:03 05/17/17 04:03 Labs: Short CBC 05/17/17 Range/Units 04:03 WBC 3.6 L (4.3-11.1) K/mcL Hgb 13.4 (12.9-16.9) g/dL Hct 39.6 (37.5-50.1) % Plt Count 125 L (140-400) K/mcL [facility] 05/17/17 04:03 Sodium 144 Potassium 3.8 Chloride 110 H Carbon Dioxide 27 BUN 8 Creatinine 0.66 L Glucose 138 H Calcium 8.5 L Consult Discharge Plan - Plan Referrals: Jacey Bill CNP [Primary Care Provider] -
[2017-05-17] MEDS: Mirtazapine 15 MG TABLET PO SCH (19:58)
[2017-05-17] MEDS ORDERED: Insulin LISPRO 300 UNITS/3 ML VIAL SQ SCH (21:00)
[2017-05-18] MEDS: *HR* Heparin 5,000 UNIT/ML VIAL SQ SCH (04:46)
[2017-05-18] MEDS ORDERED: Ketorolac 30 MG/ML VIAL IVP ONE (05:51)
[2017-05-18 07:48] VITALS: BP 127/85
[2017-05-18] MEDS: Insulin LISPRO 300 UNITS/3 ML VIAL SQ SCH (08:22)
[2017-05-18] MEDS: Aspirin 81 MG TAB.CHEW PO SCH (08:22)
[2017-05-18] MEDS: Gabapentin 300 MG CAPSULE PO SCH (08:23)
[2017-05-18] MEDS: (Omega-3/Dha/Epa/Fish Oil [Fish Oil 1,000 Mg Softgel]) PO SCH (08:23)
[2017-05-18] MEDS: Divalproex (24 HR) 500 MG TABLET PO SCH (08:23)
[2017-05-18] MEDS: Cholecalciferol (D-3) 1,000 UNIT TABLET PO SCH (08:23)
[2017-05-18] MEDS: Budesonide/Formoterol 160/4.5 MDI IH SCH (10:24)
--- NOTE | 2017-05-18 11:10 | Discharge Summary ---
Date of Encounter: 05/18/17 Time of Encounter: 11:01 - Discharge Diagnosis (1) Recurrent falls Priority: Primary Status: Acute (2) Polypharmacy Priority: Secondary Status: Acute (3) Hypertension Priority: Secondary Status: Chronic Qualifiers: Hypertension type: essential hypertension Qualified Code(s): I10 - Essential (primary) hypertension (4) Somnolence Priority: Secondary Status: Acute (5) Type 2 diabetes mellitus Priority: Secondary Status: Acute Qualifiers: Diabetes mellitus complication status: without complication Diabetes mellitus long-term insulin use: without long term care phlebotomist use Qualified Code(s): E11.9 - Type 2 diabetes mellitus without complications - Discharge Medications Prescriptions: Gabapentin [Neurontin] 600 mg PO TID #45 capsule Home Medications: Aspirin 81 mg PO DAILY 04/28/16 [History] Atorvastatin Calcium 40 mg PO HS 04/28/16 [History] Cholecalciferol (Vitamin D3) [Vitamin D3] 2,000 unit PO DAILY 04/28/16 [History] Docusate Sodium [Dok] 100 mg PO BID 04/28/16 [History] Metformin HCl [Glucophage] 1,000 mg PO BID 04/28/16 [History] Albuterol Sulfate [Proventil Hfa] 2 puff IH Q4H PRN 05/14/17 [History] Buspirone HCl [Buspar] 5 mg PO BID 05/14/17 [History] Losartan [Cozaar] 12.5 mg PO DAILY 05/14/17 [History] Mirtazapine [Remeron] 30 mg PO HS 05/14/17 [History] Multivitamin [One Daily Essential] 1 tab PO DAILY 05/14/17 [History] Acetaminophen [Tylenol] 650 mg PO Q8H PRN 05/16/17 [History] Budesonide/Formoterol 160/4.5 [Symbicort 160/4.5] 1 puff IH BID 05/16/17 [ History] Divalproex (24 HR) [Depakote ER (24 HR)] 1,000 mg PO BID 05/16/17 [History] [place]-3/Dha/Epa/Fish Oil [Fish Oil 1,000 mg Softgel] 1,000 mg PO DAILY 05/16/17 [History] Gabapentin [Neurontin] 600 mg PO TID #45 capsule 05/18/17 [Rx] Allergies/Adverse Reactions: 3 Allergy/AdvReac Type Severity Reaction Status Date / Time tramadol AdvReac Itching Verified 05/16/17 09:55 Date of admission: 05/16/17 13:48 Primary care physician: Jacey Bill CNP Consults: 05/16/17 16:09 Consult to Human Resources Operations Director [CONS] Routine Reason for SW Consult: many falls at home, fall in ED, no home services. 05/17/17 09:03 Consult to Occupational Therapy [CONS] Routine Comment: Evaluate, develop and implement POC Reason for Consult: falls Consult to Physical Therapy [CONS] Routine Comment: Evaluate, develop and implement POC Reason for Consult: falls Discharging clinician: Bravo Srinivasan - Patient Status Disposition: Home Health Service Condition: Good Functional capacity at discharge: uses cane/walker Overall status at discharge: patient is progressing back to baseline - Discharge Instructions Follow Up With: Jacey Bill CNP [Primary Care Provider] - - Diet and Activity Activity: as per physical therapy Diet: diabetic diet Hospital course: Mr. Luke is a 57 year old male with a PMH of DM, HLD, HTN, anxiety and bipolar disorder. He presents to the hospital this afternoon d/t frequent falls. He was admitted on 05/14/17 d/t elevated lactic acid levels of unclear and noninfectious etioloty; presumed to be caused by taking his metformin inappropriately. Additionally he was also here at that time d/t frequent falls. He was treated with IVF and metformin was held and lactic acidosis improved. He then signed out AMA one day prior to admission. However, he returned on this admission following an additional fall. He had a CT scan of head and C-spine which were unremarkable and he was discharged form the ED. However, the patient returned a few hours later with somnolence and was concerned that he is unable to take care of himself. He has no new complaints since his initial evaluation. His labwork remained unremarkable. Sedative medications were held; Valium and Baclofen. Gabapentin was reduced to 600 mg TID, Depakote was continued at regular dose. Patient was admitted for monitoring and possible placement. He did seem to improve in alertness and mentation after holding medications. Patient worked with physical therapy and occupational therapy. school services officer was consulted. Based on patient's overall situation, he was best serviced with home with home health services for medication compliance monitoring and PT/OT. He was discharged home in stable condition. - Time Spent with Patient Total time spent providing and/or coordinating discharge services: - Constitutional Vitals: Temp Pulse Resp BP Pulse Ox 97.4 F L 74 16 127/85 92 05/18/17 07:47 05/18/17 07:47 05/18/17 10:26 05/18/17 07:47 05/18/17 10:26 General appearance: Present: cooperative, answers questions appropriately Exam: - Neck Neck exam general surgery: Present: supple, trachea midline. Absent: lymphadenopathy - Respiratory Respiratory exam: Present: CTAB. Absent: accessory muscle use, rales, rhonchi, wheezes - Cardiovascular Cardiovascular exam: Present: RRR, +S1, +S2. Absent: diastolic murmur, gallop, rubs, systolic murmur - GI/Abdominal GI/Abdominal exam: Present: normal bowel sounds, soft, no peritoneal signs. Absent: distended, tenderness - Extremities Exam Extremities exam: Present: tenderness (Left superior acromioclavicular joint), warm, radial pulses palpable and symmetrical. Absent: calf tenderness, cyanotic , pedal edema
--- NOTE | 2017-05-18 11:17 | Physician Discharge Referral ---
Home Health/Hosp Referral Info Transfer to: Home Health Provider in Charge Post Discharge: PCP - Diagnosis (1) Recurrent falls Priority: Primary Status: Acute (2) Polypharmacy Priority: Secondary Status: Acute (3) Hypertension Priority: Secondary Status: Chronic (4) Somnolence Priority: Secondary Status: Acute (5) Type 2 diabetes mellitus Priority: Secondary Status: Acute - Respiratory Orders Smoking Cessation: Smoking cessation has been advised. For more information, call the [place] Tobacco Quit Line at 0-924-KRND-NOW. - Diet/Nutrition Diet/Nutrition Orders: No Concentrated Sweets - Activity Activity: List: As per physical therapy - Services Needed Following services are medically necessary services: Nursing, Home Health Aide, Physical Therapy, Occupational Therapy, Med Social Work - Transfer Medications Prescriptions: Gabapentin [Neurontin] 600 mg PO TID #45 capsule Home Medications: Aspirin 81 mg PO DAILY 04/28/16 [History] Atorvastatin Calcium 40 mg PO HS 04/28/16 [History] Cholecalciferol (Vitamin D3) [Vitamin D3] 2,000 unit PO DAILY 04/28/16 [History] Docusate Sodium [Dok] 100 mg PO BID 04/28/16 [History] Metformin HCl [Glucophage] 1,000 mg PO BID 04/28/16 [History] Albuterol Sulfate [Proventil Hfa] 2 puff IH Q4H PRN 05/14/17 [History] Buspirone HCl [Buspar] 5 mg PO BID 05/14/17 [History] Losartan [Cozaar] 12.5 mg PO DAILY 05/14/17 [History] Mirtazapine [Remeron] 30 mg PO HS 05/14/17 [History] Multivitamin [One Daily Essential] 1 tab PO DAILY 05/14/17 [History] Acetaminophen [Tylenol] 650 mg PO Q8H PRN 05/16/17 [History] Budesonide/Formoterol 160/4.5 [Symbicort 160/4.5] 1 puff IH BID 05/16/17 [ History] Divalproex (24 HR) [Depakote ER (24 HR)] 1,000 mg PO BID 05/16/17 [History] [place]-3/Dha/Epa/Fish Oil [Fish Oil 1,000 mg Softgel] 1,000 mg PO DAILY 05/16/17 [History] Gabapentin [Neurontin] 600 mg PO TID #45 capsule 05/18/17 [Rx] Allergies/Adverse Reactions: 3 Allergy/AdvReac Type Severity Reaction Status Date / Time tramadol AdvReac Itching Verified 05/16/17 09:55 Certification: Further, I certify that my clinical findings support that this patient is homebound (i.e. absences from home require considerable and taxing effort and are for medical reasons or uatsdin services or infrequently or short duration when for other reasons) because: Homebound Reason: Patient requires assistance of a person or device to safely leave home, Leaving home requires considerable and taxing effort due to condition Attestation: My signature below is to certify that this patient is under my care and that I, or nurse practitioner, or a physician's central supply assistant working with me, has a face-to -face encounter with this patient.
== END 2017-05-18 15:06 | disposition home health service (06) ==
LOC: EMEROO 09:49 → 3BNU 09:49 → SUATTDRO 13:48 → 3BNU 14:50
PROVIDERS: ADMIT Registered Nurse; ATTEND Internal Medicine

== ENCOUNTER 2021-06-04 16:27 | Inpatient (IN) ==
[2021-06-04] MEDS ORDERED: 0.9 % Sodium Chloride 1,000 ML IVC ONE ×2 (16:36→17:33)
[2021-06-04 17:04] LABS: Basophils # 0.1 K/mcL (0.0-0.2); Basophils % 0.5 %; Eosinophils % 0.1 %; Hemoglobin 17.2 g/dL (12.9-16.9); Immature Granulocytes % 0.4 % (0-4); Lymphocytes # 1.6 K/mcL (0.6-4.6); Lymphocytes % 10.3 %; Mean Corpuscular HGB Conc 31.1 g/dL (31.6-35.5); Mean Corpuscular Hemoglobin 27.5 pg (28.0-33.3); Mean Corpuscular Volume 88.5 fL (83.0-100.0); Mean Platelet Volume 10.6 fL (9.4-12.4); Monocytes # 0.9 K/mcL (0.0-1.3); Monocytes % 5.6 %; Neutrophils # 12.8 K/mcL (1.6-8.9); Platelet Count 370 K/mcL (140-400); Red Blood Count 6.25 M/mcL (4.19-5.50); Red Cell Distribution Width 15.5 % (11.5-14.5); Segmented Neutrophils % 83.1 %; White Blood Count 15.4 K/mcL (4.3-11.1)
[2021-06-04 17:04] LABS: ABG Base Excess -4 mEq/L (-2 to 3); ABG HCO3 20 mEq/L (21-27); ABG Oxygen Saturation 89 % (95-98); ABG PCO2 33 mmHg (35-45); ABG PH 7.39 pH Units (7.32-7.45); ABG PO2 56 mmHg (85-104); ABG TCO2 21 mEq/L (20-26); Blood Gas Pressure Support 14 cm H2O
[2021-06-04 17:06] LABS: Hematocrit 55.3 % (37.5-50.1)
[2021-06-04 17:12] LABS: INR 1.5; Prothrombin Time 16.9 Seconds (9.4-12.1)
[2021-06-04] MEDS ORDERED: Cefepime HCl 1,000 MG in 0.9 % Sodium Chloride Mini Bag 100 ML IVPB STA (17:22)
[2021-06-04 17:25] LABS: Albumin 4.1 g/dL (3.5-5.7); Albumin/Globulin Ratio 0.8 (1.1-2.2); Bilirubin,Indirect 0.5 mg/dL (0.0-1.0); Bilirubin,Total 0.5 mg/dL (0.3-1.0); Calcium 10.6 mg/dL (8.6-10.3); Globulin 5.1 g/dL (2.4-3.5); Magnesium 2.1 mg/dL (1.6-2.6); Phosphorous 4.1 mg/dL (2.7-4.5); Potassium 4.6 mEq/L (3.5-5.1); Total Protein 9.2 g/dL (6.4-8.9)
[2021-06-04 17:32] LABS: Troponin I 0.05 ng/mL (< 0.04)
[2021-06-04 18:39] LABS: Bacteria,Urine Moderate per hpf (None-Few); Bilirubin,Urine Negative (Negative); Blood,Urine Trace (Negative); Clarity,Urine Ex.Turbid (Clear); Color,Urine Yellow (Yellow); Glucose,Urine (UA) Normal (Normal); Hyaline Casts,Urine Moderate per lpf (None Seen); Ketones,Urine Trace mg/dL (Negative); Leukocyte Esterase,Urine Moderate (Negative); Mucus,Urine Few per lpf (None-Few); Nitrite,Urine Negative (Negative); Protein,Urine 200 mg/dL (Neg-Trace); Specific Gravity,Urine 1.025 (1.010-1.025); WBC,Urine 30-50 per hpf (0-3)
[2021-06-04] MEDS ORDERED: 0.9 % Sodium Chloride 500 ML IVC ONE ×2 (18:49→19:12)
[2021-06-04] MEDS ORDERED: 0.9 % Sodium Chloride 500 ML ONE (18:52)
[2021-06-04 18:53] LABS: Influenza A PCR Negative (Negative); Influenza B PCR Negative (Negative); Resp. Syncytial Virus PCR Negative (Negative)
[2021-06-04] MEDS ORDERED: *HR* FentaNYL (PF) 1,000 MCG/20 ML VIAL ONE (18:53)
[2021-06-04] MEDS ORDERED: Acetaminophen 650 MG RECTAL SUPP RC ONE (19:00)
[2021-06-04 19:17] LABS: SARS-CoV-2 by PCR (In House) Negative (Negative)
[2021-06-04] MEDS: FentaNYL (PF) 1,000 MCG/100 ML IV.SOLN IVC SCH (19:43)
[2021-06-04] MEDS ORDERED: *HR* Etomidate 20 MG/10 ML AMPUL IVP ONE (19:58)
[2021-06-04] MEDS ORDERED: *HR* Succinylcholine 200 MG/10 ML VIAL IVP ONE (19:58)
[2021-06-04] MEDS ORDERED: *HR* Midazolam HCl 2 MG/2 ML VIAL ONE (20:03)
[2021-06-04] MEDS ORDERED: *HR* Midazolam HCl 2 MG/2 ML VIAL IVP ONE (20:05)
[2021-06-04] MEDS ORDERED: 0.9 % Sodium Chloride 250 ML ONE (21:45)
[2021-06-04] MEDS ORDERED: *HR* Norepinephrine 4 MG/4 ML VIAL IVC ONE (21:45)
[2021-06-04] MEDS: Norepinephrine 4 MG/254 ML IV.SOLN IVC SCH (22:02)
[2021-06-04 22:05] LABS: ABG Base Excess -8 mEq/L (-2 to 3); ABG HCO3 23 mEq/L (21-27); ABG Oxygen Saturation 98 % (95-98); ABG PCO2 72 mmHg (35-45); ABG PH 7.11 pH Units (7.32-7.45); ABG PO2 141 mmHg (85-104); ABG TCO2 25 mEq/L (20-26); Blood Gas Modality ASSIST CONTROL; Blood Gas VT 430 cc
[2021-06-04] MEDS ORDERED: Naloxone 0.4 MG/ML INJ IVP PRN (22:21)
[2021-06-04] MEDS ORDERED: D5% in Water 1,000 ML IVC PRN (22:26)
[2021-06-04] MEDS ORDERED: *HR* Dextrose 50 % in Water (Syg) 50 ML SYRINGE IVP PRN (22:26)
[2021-06-04] MEDS ORDERED: Dextrose Gel 15 GM/37.5 ML TUBE PO PRN ×2 (22:26)
[2021-06-04 22:42] LABS: VBG HCO3 21 mEq/L (21-27); VBG PCO2 68 mmHg (41-51); VBG PH 7.09 pH Units (7.32-7.42); VBG PO2 78 mmHg (25-50)
[2021-06-04] MEDS ORDERED: 0.9 % Sodium Chloride 1,000 ML ONE (22:46)
[2021-06-04] MEDS ORDERED: Acetaminophen IV 500 MG/50 ML BAG IVPB ONE (23:07)
[2021-06-05] MEDS ORDERED: Hydrocortisone Sodium Succ 100 MG/2 ML VIAL IVP ONE (00:35)
[2021-06-05 00:51] LABS: ABG Base Excess -7 mEq/L (-2 to 3); ABG HCO3 23 mEq/L (21-27); ABG Oxygen Saturation 90 % (95-98); ABG PCO2 61 mmHg (35-45); ABG PH 7.18 pH Units (7.32-7.45); ABG PO2 74 mmHg (85-104); ABG TCO2 25 mEq/L (20-26); Blood Gas Modality ASSIST CONTROL; Blood Gas VT 430 cc
[2021-06-05] MEDS ORDERED: 0.9 % Sodium Chloride 500 ML IV ONE (00:54)
[2021-06-05 02:06] LABS: Hematocrit 36.3 % (37.5-50.1); Mean Corpuscular HGB Conc 29.8 g/dL (31.6-35.5); Mean Corpuscular Volume 90.8 fL (83.0-100.0); Mean Platelet Volume 10.6 fL (9.4-12.4); Platelet Count 202 K/mcL (140-400); Red Cell Distribution Width 14.8 % (11.5-14.5); White Blood Count 9.1 K/mcL (4.3-11.1)
[2021-06-05] MEDS ORDERED: 0.9 % Sodium Chloride 1,000 ML IV ONE (02:14)
[2021-06-05 02:19] LABS: Hemoglobin 10.8 g/dL (12.9-16.9)
[2021-06-05 02:35] LABS: Albumin/Globulin Ratio 0.9 (1.1-2.2); Bilirubin,Total 0.3 mg/dL (0.3-1.0); Calcium 5.7 mg/dL (8.6-10.3); Globulin 2.3 g/dL (2.4-3.5); Potassium 3.4 mEq/L (3.5-5.1); Total Protein 4.3 g/dL (6.4-8.9); Troponin I 0.06 ng/mL (< 0.04)
[2021-06-05] MEDS: FentaNYL (PF) 1,000 MCG/100 ML IV.SOLN IVC SCH ×2 (02:47→03:39)
[2021-06-05] MEDS: Norepinephrine 4 MG/254 ML IV.SOLN IVC SCH ×3 (03:33→08:55)
[2021-06-05] MEDS ORDERED: Calcium Gluconate 1gm/50mL 1 GM/50 ML BAG IVPB PRN (03:46)
[2021-06-05 03:49] LABS: Lymphocytes # 2.3 K/mcL (0.6-4.6); Monocytes # 0.2 K/mcL (0.0-1.3); Neutrophils # 6.6 K/mcL (1.6-8.9)
[2021-06-05] MEDS ORDERED: Albumin 25% 25gram/100mL 25 GM/100 ML IV.SOLN IVPB ONE (03:49)
[2021-06-05 03:50] LABS: Platelet Estimate Normal (Normal); Reactive Lymphocytes Present (Not Present)
[2021-06-05] MEDS: Ringers Solution, Lactated 1,000 ML IVC SCH ×3 (04:01→15:49)
[2021-06-05] MEDS: Vasopressin 40 UNIT in D5% in Water 100 ML IVC SCH (04:19)
[2021-06-05] MEDS ORDERED: Artificial Tears SOLN 15 ML BOTTLE BOTH EYES PRN (05:28)
[2021-06-05] MEDS ORDERED: FentaNYL (PF) 1,000 MCG/100 ML IV.SOLN IVC SCH (05:30)
[2021-06-05 06:02] LABS: ABG Base Excess -9 mEq/L (-2 to 3); ABG HCO3 18 mEq/L (21-27); ABG Oxygen Saturation 97 % (95-98); ABG PCO2 42 mmHg (35-45); ABG PH 7.24 pH Units (7.32-7.45); ABG PO2 103 mmHg (85-104); ABG TCO2 19 mEq/L (20-26); Blood Gas VT 480 cc
[2021-06-05] MEDS ORDERED: Acetaminophen IV 500 MG/50 ML BAG IVPB ONE (06:51)
[2021-06-05] MEDS: *HR* Heparin 5,000 UNIT/ML VIAL SQ SCH ×3 (07:02→19:47)
[2021-06-05] MEDS: Insulin LISPRO 300 UNITS/3 ML VIAL SUBQ SCH ×4 (07:47→16:47)
[2021-06-05] MEDS: Artificial Tears SOLN 15 ML BOTTLE BOTH EYES SCH ×4 (07:53→19:48)
[2021-06-05] MEDS: Pantoprazole 40 MG VIAL IVP SCH (08:54)
[2021-06-05] MEDS: Piperacillin/Tazobactam 3.375 GM in 0.9 % Sodium Chloride Mini Bag 100 ML IVPB SCH ×2 (08:54→15:53)
[2021-06-05] MEDS: Chlorhexidine Rinse 15 ML MOUTHWASH MM SCH ×2 (08:54→19:47)
[2021-06-05 09:36] LABS: Adenovirus Not Detected (Not Detect); Bordetella Pertussis Not Detected (Not Detect); Chlamydophila pneumoniae Not Detected (Not Detect); Coronavirus 229E Not Detected (Not Detect); Coronavirus HKU1 Not Detected (Not Detect); Coronavirus NL63 Not Detected (Not Detect); Coronavirus OC43 Not Detected (Not Detect); Human Metapneumovirus Not Detected (Not Detect); Human Rhinovirus/Enterovirus Not Detected (Not Detect); Influenza A Subtype 2009 H1 Not Detected (Not Detect); Influenza B Not Detected (Not Detect); Mycoplasma pneumoniae Not Detected (Not Detect); Parainfluenza Virus 1 Not Detected (Not Detect); Parainfluenza Virus 2 Not Detected (Not Detect); Parainfluenza Virus 3 Not Detected (Not Detect); Parainfluenza Virus 4 Not Detected (Not Detect); Respiratory Syncytial Virus Not Detected (Not Detect); SARS-CoV-2 Not Detected (Not Detect)
[2021-06-05 09:59] LABS: Calcium 7.9 mg/dL (8.6-10.3); Troponin I 0.06 ng/mL (< 0.04)
[2021-06-05] MEDS: D5% in 0.45% NACL 1,000 ML IVC SCH ×2 (13:48→21:30)
[2021-06-05] MEDS ORDERED: Cefepime HCl 1,000 MG in Water for inj. (sterile) 10 ML IVP SCH (18:00)
[2021-06-05] MEDS: Divalproex (12 HR) 250 MG TABLET PO SCH (19:48)
[2021-06-05] MEDS: PARoxetine 30 MG TABLET PO SCH (19:48)
[2021-06-06] MEDS: Insulin LISPRO 300 UNITS/3 ML VIAL SUBQ SCH ×4 (00:25→18:18)
[2021-06-06] MEDS: Artificial Tears SOLN 15 ML BOTTLE BOTH EYES SCH ×6 (00:25→20:17)
[2021-06-06] MEDS: Vasopressin 40 UNIT in D5% in Water 100 ML IVC SCH (00:26)
[2021-06-06] MEDS: Piperacillin/Tazobactam 3.375 GM in 0.9 % Sodium Chloride Mini Bag 100 ML IVPB SCH ×4 (00:28→23:53)
[2021-06-06 04:35] LABS: ABG Base Excess -4 mEq/L (-2 to 3); ABG HCO3 21 mEq/L (21-27); ABG Oxygen Saturation 98 % (95-98); ABG PCO2 38 mmHg (35-45); ABG PH 7.36 pH Units (7.32-7.45); ABG PO2 114 mmHg (85-104); ABG TCO2 22 mEq/L (20-26); Blood Gas VT 500 cc
[2021-06-06 04:47] LABS: Calcium 7.6 mg/dL (8.6-10.3); Potassium 4.1 mEq/L (3.5-5.1)
[2021-06-06 04:49] LABS: Eosinophils # 0.1 K/mcL (0.0-0.6); Hematocrit 34.2 % (37.5-50.1); Hemoglobin 10.9 g/dL (12.9-16.9); Lymphocytes # 1.9 K/mcL (0.6-4.6); Mean Corpuscular HGB Conc 31.9 g/dL (31.6-35.5); Mean Corpuscular Hemoglobin 27.8 pg (28.0-33.3); Mean Corpuscular Volume 87.2 fL (83.0-100.0); Mean Platelet Volume 11.1 fL (9.4-12.4); Platelet Count 157 K/mcL (140-400); Red Blood Count 3.92 M/mcL (4.19-5.50); Red Cell Distribution Width 15.2 % (11.5-14.5); White Blood Count 11.6 K/mcL (4.3-11.1)
[2021-06-06] MEDS: D5% in 0.45% NACL 1,000 ML IVC SCH ×3 (05:54→22:05)
[2021-06-06] MEDS: *HR* Heparin 5,000 UNIT/ML VIAL SQ SCH ×3 (05:55→21:42)
[2021-06-06 06:02] LABS: Monocytes # 0.7 K/mcL (0.0-1.3); Neutrophils # 8.9 K/mcL (1.6-8.9); Platelet Estimate Normal (Normal); Reactive Lymphocytes Present (Not Present)
[2021-06-06] MEDS: PARoxetine 30 MG TABLET PO SCH ×2 (07:32→20:17)
[2021-06-06] MEDS: Chlorhexidine Rinse 15 ML MOUTHWASH MM SCH ×2 (07:32→20:17)
[2021-06-06] MEDS: Divalproex (12 HR) 250 MG TABLET PO SCH (07:33)
[2021-06-06] MEDS: Pantoprazole 40 MG VIAL IVP SCH (07:33)
[2021-06-06] MEDS: Norepinephrine 4 MG/254 ML IV.SOLN IVC SCH ×2 (08:02→17:03)
[2021-06-06] MEDS: Valproic Acid Oral Soln 250 MG/5 ML UDC GTUBE SCH ×2 (08:44→20:16)
[2021-06-06] MEDS: Dexmedetomidine HCl 400 MCG/100 ML MLS IVC SCH (10:27)
[2021-06-06 17:07] LABS: Appearance of Body Fluid Cloudy (Clear); Volume of Body Fluid 20 mL
[2021-06-07] MEDS: Vasopressin 40 UNIT in D5% in Water 100 ML IVC SCH (00:38)
[2021-06-07] MEDS: Insulin LISPRO 300 UNITS/3 ML VIAL SUBQ SCH ×5 (00:39→23:54)
[2021-06-07] MEDS: Dexmedetomidine HCl 400 MCG/100 ML MLS IVC SCH ×2 (03:30→15:39)
[2021-06-07 03:34] LABS: ABG Base Excess -3 mEq/L (-2 to 3); ABG HCO3 22 mEq/L (21-27); ABG Oxygen Saturation 98 % (95-98); ABG PCO2 36 mmHg (35-45); ABG PH 7.39 pH Units (7.32-7.45); ABG PO2 106 mmHg (85-104); ABG TCO2 23 mEq/L (20-26); Blood Gas VT 500 cc
[2021-06-07 03:51] LABS: Hematocrit 32.7 % (37.5-50.1); Hemoglobin 10.1 g/dL (12.9-16.9); Mean Corpuscular HGB Conc 30.9 g/dL (31.6-35.5); Mean Corpuscular Hemoglobin 26.4 pg (28.0-33.3); Mean Corpuscular Volume 85.6 fL (83.0-100.0); Mean Platelet Volume 11.8 fL (9.4-12.4); Platelet Count 150 K/mcL (140-400); Red Blood Count 3.82 M/mcL (4.19-5.50); White Blood Count 14.3 K/mcL (4.3-11.1)
[2021-06-07 04:07] LABS: BUN/Creatinine Ratio 37 (6-26); Blood Urea Nitrogen 30 mg/dL (8-23); Calcium 7.5 mg/dL (8.6-10.3); Carbon Dioxide 23 mEq/L (23-29); Chloride 118 mEq/L (98-107); Glucose 204 mg/dL (70-105); Magnesium 1.4 mg/dL (1.6-2.6); Osmolality,Calculated 310 (280-300); Phosphorous 1.6 mg/dL (2.7-4.5); Potassium 3.5 mEq/L (3.5-5.1); Sodium 144 mEq/L (136-145); eGFR For African Americans > 60 (> 60); eGFR For Non-African Americans > 60 (> 60)
[2021-06-07] MEDS: Artificial Tears SOLN 15 ML BOTTLE BOTH EYES SCH ×7 (04:18→23:52)
[2021-06-07] MEDS ORDERED: Potassium Phosphate 44 MEQ in 0.9 % Sodium Chloride 250 ML IVPB ONE (05:06)
[2021-06-07] MEDS ORDERED: Calcium Gluconate 1gm/50mL 1 GM/50 ML BAG IVPB ONE (05:09)
[2021-06-07] MEDS: *HR* Heparin 5,000 UNIT/ML VIAL SQ SCH ×3 (05:32→21:56)
[2021-06-07] MEDS: D5% in 0.45% NACL 1,000 ML IVC SCH ×2 (06:40→20:45)
[2021-06-07] MEDS: Piperacillin/Tazobactam 3.375 GM in 0.9 % Sodium Chloride Mini Bag 100 ML IVPB SCH ×3 (07:39→23:49)
[2021-06-07] MEDS: Pantoprazole 40 MG VIAL IVP SCH (07:42)
[2021-06-07] MEDS: Chlorhexidine Rinse 15 ML MOUTHWASH MM SCH ×2 (07:42→20:24)
[2021-06-07] MEDS: Valproic Acid Oral Soln 250 MG/5 ML UDC GTUBE SCH ×2 (07:43→20:24)
[2021-06-07] MEDS: PARoxetine 30 MG TABLET PO SCH ×2 (07:43→20:24)
[2021-06-07] MEDS: Norepinephrine 4 MG/254 ML IV.SOLN IVC SCH (10:50)
[2021-06-08] MEDS: Dexmedetomidine HCl 400 MCG/100 ML MLS IVC SCH ×3 (01:30→23:16)
[2021-06-08 03:43] LABS: Basophils % 0.3 %; Eosinophils # 0.2 K/mcL (0.0-0.6); Eosinophils % 1.5 %; Hematocrit 32.2 % (37.5-50.1); Hemoglobin 10.4 g/dL (12.9-16.9); Immature Granulocytes % 0.9 % (0-4); Lymphocytes # 1.9 K/mcL (0.6-4.6); Lymphocytes % 12.6 %; Mean Corpuscular HGB Conc 32.3 g/dL (31.6-35.5); Mean Corpuscular Hemoglobin 26.9 pg (28.0-33.3); Mean Corpuscular Volume 83.4 fL (83.0-100.0); Mean Platelet Volume 11.7 fL (9.4-12.4); Monocytes # 0.7 K/mcL (0.0-1.3); Monocytes % 4.5 %; Neutrophils # 11.9 K/mcL (1.6-8.9); Nucleated Red Blood Cells 0.1 /100 WBC (0); Platelet Count 159 K/mcL (140-400); Red Blood Count 3.86 M/mcL (4.19-5.50); Red Cell Distribution Width 14.8 % (11.5-14.5); Segmented Neutrophils % 80.2 %; White Blood Count 14.8 K/mcL (4.3-11.1)
[2021-06-08 03:43] LABS: VBG Ionized Calcium 1.07 mmol/L (1.15-1.35)
[2021-06-08 04:07] LABS: Alanine Aminotransferase 312 Units/L (7-52); Albumin 2.3 g/dL (3.5-5.7); Albumin/Globulin Ratio 0.8 (1.1-2.2); Alkaline Phosphatase 77 Units/L (34-104); Aspartate Amino Transferase 166 Units/L (13-39); BUN/Creatinine Ratio 31 (6-26); Bilirubin,Total 0.4 mg/dL (0.3-1.0); Blood Urea Nitrogen 20 mg/dL (8-23); Calcium 7.1 mg/dL (8.6-10.3); Carbon Dioxide 21 mEq/L (23-29); Chloride 114 mEq/L (98-107); Globulin 2.9 g/dL (2.4-3.5); Glucose 212 mg/dL (70-105); Magnesium 1.4 mg/dL (1.6-2.6); Osmolality,Calculated 305 (280-300); Phosphorous 1.5 mg/dL (2.7-4.5); Potassium 3.3 mEq/L (3.5-5.1); Sodium 143 mEq/L (136-145); Total Protein 5.2 g/dL (6.4-8.9); Vancomycin,Random 6 mcg/mL; eGFR For African Americans > 60 (> 60); eGFR For Non-African Americans > 60 (> 60)
[2021-06-08 04:47] LABS: ABG Base Excess -3 mEq/L (-2 to 3); ABG HCO3 20 mEq/L (21-27); ABG Oxygen Saturation 93 % (95-98); ABG PCO2 28 mmHg (35-45); ABG PH 7.47 pH Units (7.32-7.45); ABG PO2 62 mmHg (85-104); ABG TCO2 21 mEq/L (20-26); Blood Gas VT 500 cc
[2021-06-08] MEDS ORDERED: Potassium Phosphate 44 MEQ in 0.9 % Sodium Chloride 250 ML IVPB ONE (05:00)
[2021-06-08] MEDS: Calcium Gluconate 1gm/50mL 1 GM/50 ML BAG IVPB SCH ×2 (05:46→07:05)
[2021-06-08] MEDS: Artificial Tears SOLN 15 ML BOTTLE BOTH EYES SCH ×6 (05:46→22:58)
[2021-06-08] MEDS: *HR* Heparin 5,000 UNIT/ML VIAL SQ SCH ×3 (05:47→22:59)
[2021-06-08] MEDS: Albumin Human 5% 12.5 GM/250 ML IV.SOLN IVC SCH ×2 (05:49→07:38)
[2021-06-08] MEDS: Insulin LISPRO 300 UNITS/3 ML VIAL SUBQ SCH ×4 (06:31→23:00)
[2021-06-08] MEDS: Piperacillin/Tazobactam 3.375 GM in 0.9 % Sodium Chloride Mini Bag 100 ML IVPB SCH ×3 (07:39→22:58)
[2021-06-08] MEDS: Pantoprazole 40 MG VIAL IVP SCH (07:40)
[2021-06-08] MEDS: PARoxetine 30 MG TABLET PO SCH ×2 (07:43→19:18)
[2021-06-08] MEDS: Valproic Acid Oral Soln 250 MG/5 ML UDC GTUBE SCH ×2 (07:45→19:17)
[2021-06-08] MEDS: Chlorhexidine Rinse 15 ML MOUTHWASH MM SCH ×2 (07:46→19:17)
[2021-06-08] MEDS: Ringers Solution, Lactated 1,000 ML IVC SCH ×4 (17:10→22:52)
[2021-06-08] MEDS: Norepinephrine 4 MG/254 ML IV.SOLN IVC SCH ×4 (17:12→23:13)
[2021-06-08] MEDS: D5% in 0.45% NACL 1,000 ML IVC SCH ×2 (17:14→19:15)
[2021-06-08] MEDS: Vasopressin 40 UNIT in D5% in Water 100 ML IVC SCH ×2 (17:14→19:15)
[2021-06-09] MEDS: Ringers Solution, Lactated 1,000 ML IVC SCH (02:02)
[2021-06-09 04:15] LABS: ABG Base Excess -2 mEq/L (-2 to 3); ABG HCO3 21 mEq/L (21-27); ABG Oxygen Saturation 93 % (95-98); ABG PCO2 30 mmHg (35-45); ABG PH 7.45 pH Units (7.32-7.45); ABG PO2 61 mmHg (85-104); ABG TCO2 22 mEq/L (20-26); Blood Gas Modality AF; Blood Gas VT 500 cc
[2021-06-09] MEDS: Artificial Tears SOLN 15 ML BOTTLE BOTH EYES SCH ×6 (04:28→23:32)
[2021-06-09 04:56] LABS: VBG Ionized Calcium 1.11 mmol/L (1.15-1.35)
[2021-06-09 04:57] LABS: Basophils % 0.3 %; Eosinophils # 0.1 K/mcL (0.0-0.6); Eosinophils % 1.3 %; Hematocrit 34.3 % (37.5-50.1); Hemoglobin 11.2 g/dL (12.9-16.9); Immature Granulocytes % 1.9 % (0-4); Lymphocytes # 1.4 K/mcL (0.6-4.6); Lymphocytes % 12.9 %; Mean Corpuscular HGB Conc 32.7 g/dL (31.6-35.5); Mean Corpuscular Hemoglobin 26.9 pg (28.0-33.3); Mean Corpuscular Volume 82.5 fL (83.0-100.0); Mean Platelet Volume 11.4 fL (9.4-12.4); Monocytes # 0.7 K/mcL (0.0-1.3); Monocytes % 6.6 %; Neutrophils # 8.3 K/mcL (1.6-8.9); Nucleated Red Blood Cells 0.2 /100 WBC (0); Platelet Count 184 K/mcL (140-400); Red Blood Count 4.16 M/mcL (4.19-5.50); Red Cell Distribution Width 14.7 % (11.5-14.5); White Blood Count 10.8 K/mcL (4.3-11.1)
[2021-06-09] MEDS: *HR* Heparin 5,000 UNIT/ML VIAL SQ SCH ×3 (05:00→22:56)
[2021-06-09 05:18] LABS: Alanine Aminotransferase 204 Units/L (7-52); Albumin 2.5 g/dL (3.5-5.7); Albumin/Globulin Ratio 0.9 (1.1-2.2); Alkaline Phosphatase 92 Units/L (34-104); Aspartate Amino Transferase 86 Units/L (13-39); BUN/Creatinine Ratio 25 (6-26); Bilirubin,Total 0.5 mg/dL (0.3-1.0); Blood Urea Nitrogen 16 mg/dL (8-23); Calcium 7.8 mg/dL (8.6-10.3); Carbon Dioxide 22 mEq/L (23-29); Chloride 113 mEq/L (98-107); Globulin 2.8 g/dL (2.4-3.5); Glucose 203 mg/dL (70-105); Magnesium 1.3 mg/dL (1.6-2.6); Osmolality,Calculated 303 (280-300); Potassium 3.3 mEq/L (3.5-5.1); Sodium 143 mEq/L (136-145); Total Protein 5.3 g/dL (6.4-8.9); eGFR For African Americans > 60 (> 60); eGFR For Non-African Americans > 60 (> 60)
[2021-06-09] MEDS ORDERED: Potassium Phosphate 44 MEQ in 0.9 % Sodium Chloride 250 ML IVPB PRN (05:34)
[2021-06-09] MEDS: Potassium Chloride 40 MEQ/200 ML BAG IVPB PRN (05:49)
[2021-06-09] MEDS: Insulin LISPRO 300 UNITS/3 ML VIAL SUBQ SCH ×4 (05:50→23:05)
[2021-06-09] MEDS: Pantoprazole 40 MG VIAL IVP SCH (09:35)
[2021-06-09] MEDS: Chlorhexidine Rinse 15 ML MOUTHWASH MM SCH ×2 (09:35→22:46)
[2021-06-09] MEDS: PARoxetine 30 MG TABLET PO SCH ×2 (09:35→22:53)
[2021-06-09] MEDS: Gabapentin 300 MG CAPSULE PO SCH ×3 (09:35→22:53)
[2021-06-09] MEDS: Piperacillin/Tazobactam 3.375 GM in 0.9 % Sodium Chloride Mini Bag 100 ML IVPB SCH ×3 (09:38→23:14)
[2021-06-09] MEDS: Dexmedetomidine HCl 400 MCG/100 ML MLS IVC SCH ×3 (09:39→23:31)
[2021-06-09] MEDS: Valproic Acid Oral Soln 250 MG/5 ML UDC GTUBE SCH ×3 (12:58→22:46)
[2021-06-09 18:07] LABS: Magnesium 1.5 mg/dL (1.6-2.6); Phosphorous 2.4 mg/dL (2.7-4.5); Potassium 3.8 mEq/L (3.5-5.1)
[2021-06-09] MEDS: Vasopressin 40 UNIT in D5% in Water 100 ML IVC SCH (23:05)
[2021-06-10 03:51] LABS: Basophils # 0.1 K/mcL (0.0-0.2); Basophils % 0.7 %; Eosinophils # 0.1 K/mcL (0.0-0.6); Eosinophils % 0.8 %; Hematocrit 33.4 % (37.5-50.1); Hemoglobin 10.8 g/dL (12.9-16.9); Immature Granulocytes % 4.6 % (0-4); Lymphocytes # 1.8 K/mcL (0.6-4.6); Lymphocytes % 17.7 %; Mean Corpuscular HGB Conc 32.3 g/dL (31.6-35.5); Mean Corpuscular Hemoglobin 26.8 pg (28.0-33.3); Mean Corpuscular Volume 82.9 fL (83.0-100.0); Monocytes % 9.9 %; Neutrophils # 6.6 K/mcL (1.6-8.9); Nucleated Red Blood Cells 0.3 /100 WBC (0); Platelet Count 202 K/mcL (140-400); Red Blood Count 4.03 M/mcL (4.19-5.50); Red Cell Distribution Width 14.6 % (11.5-14.5); Segmented Neutrophils % 66.3 %; White Blood Count 9.9 K/mcL (4.3-11.1)
[2021-06-10 04:13] LABS: Alanine Aminotransferase 151 Units/L (7-52); Albumin 2.4 g/dL (3.5-5.7); Albumin/Globulin Ratio 0.9 (1.1-2.2); Alkaline Phosphatase 99 Units/L (34-104); Aspartate Amino Transferase 57 Units/L (13-39); BUN/Creatinine Ratio 25 (6-26); Bilirubin,Total 0.4 mg/dL (0.3-1.0); Blood Urea Nitrogen 15 mg/dL (8-23); Calcium 7.7 mg/dL (8.6-10.3); Carbon Dioxide 24 mEq/L (23-29); Chloride 112 mEq/L (98-107); Globulin 2.7 g/dL (2.4-3.5); Glucose 221 mg/dL (70-105); Magnesium 1.3 mg/dL (1.6-2.6); Osmolality,Calculated 304 (280-300); Phosphorous 2.7 mg/dL (2.7-4.5); Potassium 3.9 mEq/L (3.5-5.1); Sodium 143 mEq/L (136-145); Total Protein 5.1 g/dL (6.4-8.9); Vancomycin,Trough 10 mcg/mL (5-10); eGFR For African Americans > 60 (> 60); eGFR For Non-African Americans > 60 (> 60)
[2021-06-10 04:38] LABS: ABG Base Excess -1 mEq/L (-2 to 3); ABG HCO3 22 mEq/L (21-27); ABG Oxygen Saturation 93 % (95-98); ABG PCO2 32 mmHg (35-45); ABG PH 7.45 pH Units (7.32-7.45); ABG PO2 63 mmHg (85-104); ABG TCO2 23 mEq/L (20-26); Blood Gas Modality ASSIST CONTROL; Blood Gas VT 450 cc
[2021-06-10] MEDS: Artificial Tears SOLN 15 ML BOTTLE BOTH EYES SCH ×6 (04:51→23:37)
[2021-06-10] MEDS ORDERED: Vancomycin 1,250 MG/262.5 ML IV.SOLN IVPB SCH (05:00)
[2021-06-10] MEDS: Dexmedetomidine HCl 400 MCG/100 ML MLS IVC SCH ×2 (05:12→13:35)
[2021-06-10] MEDS: Potassium Chloride 40 MEQ/200 ML BAG IVPB PRN ×4 (05:12→17:53)
[2021-06-10] MEDS: *HR* Heparin 5,000 UNIT/ML VIAL SQ SCH ×3 (05:14→22:15)
[2021-06-10] MEDS: Valproic Acid Oral Soln 250 MG/5 ML UDC GTUBE SCH ×4 (05:14→23:37)
[2021-06-10] MEDS: Insulin LISPRO 300 UNITS/3 ML VIAL SUBQ SCH ×4 (05:15→23:38)
[2021-06-10] MEDS: Norepinephrine 4 MG/254 ML IV.SOLN IVC SCH ×4 (06:51→14:22)
[2021-06-10] MEDS: D5% in 0.45% NACL 1,000 ML IVC SCH ×2 (06:54→08:34)
[2021-06-10] MEDS: Ringers Solution, Lactated 1,000 ML IVC SCH (06:54)
[2021-06-10] MEDS: Piperacillin/Tazobactam 3.375 GM in 0.9 % Sodium Chloride Mini Bag 100 ML IVPB SCH (07:13)
[2021-06-10] MEDS: Pantoprazole 40 MG VIAL IVP SCH (07:14)
[2021-06-10] MEDS: Gabapentin 300 MG CAPSULE PO SCH ×3 (07:15→19:46)
[2021-06-10] MEDS: PARoxetine 30 MG TABLET PO SCH ×2 (07:15→19:47)
[2021-06-10] MEDS: Chlorhexidine Rinse 15 ML MOUTHWASH MM SCH ×2 (07:16→19:46)
[2021-06-10] MEDS ORDERED: Furosemide 40 MG/4 ML VIAL IVP ONE (07:32)
[2021-06-10 11:15] LABS: Magnesium 1.5 mg/dL (1.6-2.6); Phosphorous 2.9 mg/dL (2.7-4.5); Potassium 3.7 mEq/L (3.5-5.1)
[2021-06-10] MEDS: Vancomycin 1,500 MG/265 ML IV.SOLN IVPB SCH (15:56)
[2021-06-10] MEDS: cefTRIAXone 1,000 MG in 0.9 % Sodium Chloride Mini Bag 100 ML IVPB SCH (17:08)
[2021-06-10 17:51] LABS: Magnesium 1.6 mg/dL (1.6-2.6); Phosphorous 3.1 mg/dL (2.7-4.5); Potassium 3.8 mEq/L (3.5-5.1)
[2021-06-11 00:55] LABS: Magnesium 1.5 mg/dL (1.6-2.6); Potassium 3.9 mEq/L (3.5-5.1)
[2021-06-11] MEDS: Potassium Chloride 40 MEQ/200 ML BAG IVPB PRN (03:51)
[2021-06-11] MEDS: Vancomycin 1,500 MG/265 ML IV.SOLN IVPB SCH ×2 (03:52→17:13)
[2021-06-11] MEDS: Artificial Tears SOLN 15 ML BOTTLE BOTH EYES SCH ×5 (03:52→20:13)
[2021-06-11 04:13] LABS: ABG Base Excess 2 mEq/L (-2 to 3); ABG HCO3 24 mEq/L (21-27); ABG Oxygen Saturation 93 % (95-98); ABG PCO2 31 mmHg (35-45); ABG PH 7.51 pH Units (7.32-7.45); ABG PO2 60 mmHg (85-104); ABG TCO2 25 mEq/L (20-26); Blood Gas VT 450 cc
[2021-06-11] MEDS: Dexmedetomidine HCl 400 MCG/100 ML MLS IVC SCH (04:25)
[2021-06-11 04:32] LABS: VBG Ionized Calcium 0.97 mmol/L (1.15-1.35)
[2021-06-11] MEDS: Calcium Gluconate 1gm/50mL 1 GM/50 ML BAG IVPB PRN (04:39)
[2021-06-11 04:45] LABS: Basophils # 0.1 K/mcL (0.0-0.2); Basophils % 0.7 %; Eosinophils % 0.3 %; Hematocrit 32.4 % (37.5-50.1); Hemoglobin 10.6 g/dL (12.9-16.9); Immature Granulocytes % 4.8 % (0-4); Lymphocytes # 1.7 K/mcL (0.6-4.6); Mean Corpuscular HGB Conc 32.7 g/dL (31.6-35.5); Mean Corpuscular Hemoglobin 26.6 pg (28.0-33.3); Mean Corpuscular Volume 81.4 fL (83.0-100.0); Mean Platelet Volume 11.1 fL (9.4-12.4); Monocytes # 1.2 K/mcL (0.0-1.3); Neutrophils # 9.5 K/mcL (1.6-8.9); Nucleated Red Blood Cells 0.5 /100 WBC (0); Platelet Count 248 K/mcL (140-400); Red Blood Count 3.98 M/mcL (4.19-5.50); Red Cell Distribution Width 14.6 % (11.5-14.5); Segmented Neutrophils % 72.2 %; White Blood Count 13.2 K/mcL (4.3-11.1)
[2021-06-11 05:02] LABS: Alanine Aminotransferase 107 Units/L (7-52); Albumin 2.2 g/dL (3.5-5.7); Albumin/Globulin Ratio 0.8 (1.1-2.2); Alkaline Phosphatase 99 Units/L (34-104); Aspartate Amino Transferase 47 Units/L (13-39); BUN/Creatinine Ratio 28 (6-26); Bilirubin,Total 0.3 mg/dL (0.3-1.0); Blood Urea Nitrogen 14 mg/dL (8-23); Calcium 7.4 mg/dL (8.6-10.3); Carbon Dioxide 24 mEq/L (23-29); Chloride 109 mEq/L (98-107); Globulin 2.8 g/dL (2.4-3.5); Glucose 202 mg/dL (70-105); Magnesium 1.8 mg/dL (1.6-2.6); Osmolality,Calculated 298 (280-300); Phosphorous 2.7 mg/dL (2.7-4.5); Potassium 4.4 mEq/L (3.5-5.1); Sodium 141 mEq/L (136-145); eGFR For African Americans > 60 (> 60); eGFR For Non-African Americans > 60 (> 60)
[2021-06-11] MEDS: *HR* Heparin 5,000 UNIT/ML VIAL SQ SCH ×3 (05:39→22:15)
[2021-06-11] MEDS: Valproic Acid Oral Soln 250 MG/5 ML UDC GTUBE SCH ×3 (05:39→17:13)
[2021-06-11] MEDS: Insulin LISPRO 300 UNITS/3 ML VIAL SUBQ SCH ×3 (05:40→17:27)
[2021-06-11] MEDS ORDERED: Furosemide 40 MG/4 ML VIAL IVP ONE (07:36)
[2021-06-11] MEDS ORDERED: Dexamethasone Sodium Phos/PF 10 MG/ML VIAL IVP SCH (09:00)
[2021-06-11] MEDS: Pantoprazole 40 MG VIAL IVP SCH (09:44)
[2021-06-11] MEDS: PARoxetine 30 MG TABLET PO SCH ×2 (09:45→20:16)
[2021-06-11] MEDS: Gabapentin 300 MG CAPSULE PO SCH ×3 (09:45→20:13)
[2021-06-11] MEDS: Chlorhexidine Rinse 15 ML MOUTHWASH MM SCH ×2 (09:45→20:13)
[2021-06-11] MEDS: Norepinephrine 4 MG/254 ML IV.SOLN IVC SCH ×2 (09:46→12:15)
[2021-06-11 11:15] LABS: VBG Ionized Calcium 1.15 mmol/L (1.15-1.35)
[2021-06-11 11:54] LABS: Magnesium 1.7 mg/dL (1.6-2.6); Potassium 4.2 mEq/L (3.5-5.1)
[2021-06-11] MEDS ORDERED: *HR* LORazepam 2 MG/ML VIAL IVP PRN (16:27)
[2021-06-11] MEDS: FentaNYL (PF) 1,000 MCG/100 ML IV.SOLN IVC SCH (16:30)
[2021-06-11] MEDS: cefTRIAXone 1,000 MG in 0.9 % Sodium Chloride Mini Bag 100 ML IVPB SCH (17:13)
[2021-06-12] MEDS: Valproic Acid Oral Soln 250 MG/5 ML UDC GTUBE SCH ×5 (00:22→23:53)
[2021-06-12] MEDS: Artificial Tears SOLN 15 ML BOTTLE BOTH EYES SCH ×5 (00:23→15:12)
[2021-06-12] MEDS: Insulin LISPRO 300 UNITS/3 ML VIAL SUBQ SCH ×3 (00:29→23:55)
[2021-06-12 03:57] LABS: ABG Base Excess 3 mEq/L (-2 to 3); ABG HCO3 29 mEq/L (21-27); ABG Oxygen Saturation 94 % (95-98); ABG PCO2 49 mmHg (35-45); ABG PH 7.38 pH Units (7.32-7.45); ABG PO2 71 mmHg (85-104); ABG TCO2 31 mEq/L (20-26); Blood Gas VT 400 cc
[2021-06-12 04:28] LABS: Basophils # 0.1 K/mcL (0.0-0.2); Basophils % 0.7 %; Hematocrit 32.4 % (37.5-50.1); Hemoglobin 10.6 g/dL (12.9-16.9); Immature Granulocytes % 4.4 % (0-4); Lymphocytes # 1.8 K/mcL (0.6-4.6); Lymphocytes % 12.7 %; Mean Corpuscular HGB Conc 32.7 g/dL (31.6-35.5); Mean Corpuscular Volume 82.4 fL (83.0-100.0); Mean Platelet Volume 10.7 fL (9.4-12.4); Monocytes % 7.1 %; Neutrophils # 10.8 K/mcL (1.6-8.9); Nucleated Red Blood Cells 0.2 /100 WBC (0); Platelet Count 273 K/mcL (140-400); Red Blood Count 3.93 M/mcL (4.19-5.50); Red Cell Distribution Width 14.7 % (11.5-14.5); Segmented Neutrophils % 75.1 %; White Blood Count 14.4 K/mcL (4.3-11.1)
[2021-06-12 04:39] LABS: VBG Ionized Calcium 1.15 mmol/L (1.15-1.35)
[2021-06-12 05:04] LABS: Alanine Aminotransferase 96 Units/L (7-52); Albumin 2.4 g/dL (3.5-5.7); Albumin/Globulin Ratio 0.8 (1.1-2.2); Alkaline Phosphatase 99 Units/L (34-104); Aspartate Amino Transferase 43 Units/L (13-39); BUN/Creatinine Ratio 42 (6-26); Bilirubin,Total 0.3 mg/dL (0.3-1.0); Blood Urea Nitrogen 20 mg/dL (8-23); Calcium 8.2 mg/dL (8.6-10.3); Carbon Dioxide 29 mEq/L (23-29); Chloride 105 mEq/L (98-107); Globulin 3.2 g/dL (2.4-3.5); Glucose 244 mg/dL (70-105); Magnesium 1.4 mg/dL (1.6-2.6); Osmolality,Calculated 301 (280-300); Phosphorous 2.8 mg/dL (2.7-4.5); Potassium 4.5 mEq/L (3.5-5.1); Sodium 140 mEq/L (136-145); Total Protein 5.6 g/dL (6.4-8.9); Vancomycin,Trough 16 mcg/mL (5-10); eGFR For African Americans > 60 (> 60); eGFR For Non-African Americans > 60 (> 60)
[2021-06-12] MEDS: FentaNYL (PF) 1,000 MCG/100 ML IV.SOLN IVC SCH (05:37)
[2021-06-12] MEDS: Vancomycin 1,500 MG/265 ML IV.SOLN IVPB SCH ×2 (05:40→17:00)
[2021-06-12] MEDS: *HR* Heparin 5,000 UNIT/ML VIAL SQ SCH ×3 (05:41→21:18)
[2021-06-12] MEDS ORDERED: Furosemide 40 MG/4 ML VIAL IVP ONE ×2 (07:54→20:00)
[2021-06-12] MEDS: Chlorhexidine Rinse 15 ML MOUTHWASH MM SCH ×2 (09:37→21:18)
[2021-06-12] MEDS: Pantoprazole 40 MG VIAL IVP SCH (09:37)
[2021-06-12] MEDS: Gabapentin 300 MG CAPSULE PO SCH ×3 (09:37→21:17)
[2021-06-12] MEDS: PARoxetine 30 MG TABLET PO SCH ×2 (09:38→21:16)
[2021-06-12 15:47] LABS: Magnesium 1.5 mg/dL (1.6-2.6)
[2021-06-12] MEDS: cefTRIAXone 1,000 MG in 0.9 % Sodium Chloride Mini Bag 100 ML IVPB SCH (19:09)
[2021-06-13 04:02] LABS: ABG Base Excess 8 mEq/L (-2 to 3); ABG HCO3 33 mEq/L (21-27); ABG Oxygen Saturation 92 % (95-98); ABG PCO2 48 mmHg (35-45); ABG PH 7.45 pH Units (7.32-7.45); ABG PO2 63 mmHg (85-104); ABG TCO2 34 mEq/L (20-26); Blood Gas VT 400 cc
[2021-06-13 04:06] LABS: VBG Ionized Calcium 1.14 mmol/L (1.15-1.35)
[2021-06-13 04:15] LABS: White Blood Count 17.9 K/mcL (4.3-11.1)
[2021-06-13 04:16] LABS: Basophils # 0.1 K/mcL (0.0-0.2); Basophils % 0.8 %; Eosinophils # 0.1 K/mcL (0.0-0.6); Eosinophils % 0.4 %; Hematocrit 34.7 % (37.5-50.1); Hemoglobin 11.4 g/dL (12.9-16.9); Immature Granulocytes % 5.3 % (0-4); Lymphocytes % 16.6 %; Mean Corpuscular HGB Conc 32.9 g/dL (31.6-35.5); Mean Corpuscular Hemoglobin 27.3 pg (28.0-33.3); Mean Platelet Volume 10.6 fL (9.4-12.4); Monocytes # 1.4 K/mcL (0.0-1.3); Monocytes % 7.7 %; Neutrophils # 12.4 K/mcL (1.6-8.9); Platelet Count 378 K/mcL (140-400); Red Blood Count 4.18 M/mcL (4.19-5.50); Red Cell Distribution Width 14.9 % (11.5-14.5); Segmented Neutrophils % 69.2 %
[2021-06-13 04:26] LABS: Alanine Aminotransferase 173 Units/L (7-52); Albumin 2.5 g/dL (3.5-5.7); Albumin/Globulin Ratio 0.7 (1.1-2.2); Alkaline Phosphatase 122 Units/L (34-104); Aspartate Amino Transferase 186 Units/L (13-39); BUN/Creatinine Ratio 35 (6-26); Bilirubin,Total 0.3 mg/dL (0.3-1.0); Blood Urea Nitrogen 23 mg/dL (8-23); Calcium 8.5 mg/dL (8.6-10.3); Carbon Dioxide 34 mEq/L (23-29); Chloride 99 mEq/L (98-107); Globulin 3.4 g/dL (2.4-3.5); Glucose 220 mg/dL (70-105); Magnesium 1.4 mg/dL (1.6-2.6); Osmolality,Calculated 298 (280-300); Phosphorous 2.7 mg/dL (2.7-4.5); Sodium 139 mEq/L (136-145); Total Protein 5.9 g/dL (6.4-8.9); eGFR For African Americans > 60 (> 60); eGFR For Non-African Americans > 60 (> 60)
[2021-06-13 04:42] LABS: Vancomycin,Trough 22 mcg/mL (5-10)
[2021-06-13 04:56] LABS: Reactive Lymphocytes Present (Not Present)
[2021-06-13 04:57] LABS: Platelet Estimate Normal (Normal)
[2021-06-13] MEDS: Insulin LISPRO 300 UNITS/3 ML VIAL SUBQ SCH ×5 (05:34→18:13)
[2021-06-13] MEDS: *HR* Heparin 5,000 UNIT/ML VIAL SQ SCH ×3 (05:39→22:22)
[2021-06-13] MEDS: Artificial Tears SOLN 15 ML BOTTLE BOTH EYES SCH ×4 (08:20→19:50)
[2021-06-13] MEDS: Vancomycin 1,250 MG/262.5 ML IV.SOLN IVPB SCH ×2 (09:23→20:58)
[2021-06-13] MEDS: Valproic Acid Oral Soln 250 MG/5 ML UDC GTUBE SCH ×2 (09:25→16:53)
[2021-06-13] MEDS: Chlorhexidine Rinse 15 ML MOUTHWASH MM SCH ×2 (09:25→19:50)
[2021-06-13] MEDS: Gabapentin 300 MG CAPSULE PO SCH ×3 (09:25→19:51)
[2021-06-13] MEDS: PARoxetine 30 MG TABLET PO SCH (09:26)
[2021-06-13] MEDS: Furosemide 40 MG/4 ML VIAL IVP SCH ×3 (09:26→19:51)
[2021-06-13] MEDS: Pantoprazole 40 MG VIAL IVP SCH (09:26)
[2021-06-13 12:34] LABS: Bacteria,Urine Few per hpf (None-Few); Bilirubin,Urine Negative (Negative); Blood,Urine Negative (Negative); Clarity,Urine Clear (Clear); Color,Urine Colorless (Yellow); Glucose,Urine (UA) Normal (Normal); Hyaline Casts,Urine Few per lpf (None Seen); Ketones,Urine Negative (Negative); Leukocyte Esterase,Urine Moderate (Negative); Mucus,Urine Few per lpf (None-Few); Nitrite,Urine Negative (Negative); Protein,Urine Negative (Neg-Trace); Urobilinogen,Urine Normal (Normal); WBC,Urine 15-30 per hpf (0-3)
[2021-06-13] MEDS: *HR* Metoprolol 5 MG/5 ML VIAL IVP PRN (12:46)
[2021-06-13] MEDS: cefTRIAXone 1,000 MG in 0.9 % Sodium Chloride Mini Bag 100 ML IVPB SCH (18:19)
[2021-06-13] MEDS ORDERED: 0.9 % Sodium Chloride 1,000 ML ONE (20:27)
[2021-06-13] MEDS: FentaNYL (PF) 1,000 MCG/100 ML IV.SOLN IVC SCH (20:57)
[2021-06-14] MEDS: Insulin LISPRO 300 UNITS/3 ML VIAL SUBQ SCH ×5 (00:49→23:39)
[2021-06-14 03:43] LABS: Basophils # 0.1 K/mcL (0.0-0.2); Basophils % 0.7 %; Eosinophils % 0.2 %; Hematocrit 33.3 % (37.5-50.1); Hemoglobin 10.8 g/dL (12.9-16.9); Lymphocytes # 2.9 K/mcL (0.6-4.6); Lymphocytes % 16.8 %; Mean Corpuscular HGB Conc 32.4 g/dL (31.6-35.5); Mean Corpuscular Hemoglobin 26.8 pg (28.0-33.3); Mean Corpuscular Volume 82.6 fL (83.0-100.0); Mean Platelet Volume 10.1 fL (9.4-12.4); Monocytes # 1.2 K/mcL (0.0-1.3); Monocytes % 6.7 %; Neutrophils # 12.4 K/mcL (1.6-8.9); Platelet Count 387 K/mcL (140-400); Red Blood Count 4.03 M/mcL (4.19-5.50); Red Cell Distribution Width 14.8 % (11.5-14.5); Segmented Neutrophils % 71.6 %; White Blood Count 17.4 K/mcL (4.3-11.1)
[2021-06-14 03:57] LABS: Alanine Aminotransferase 129 Units/L (7-52); Albumin 2.4 g/dL (3.5-5.7); Albumin/Globulin Ratio 0.7 (1.1-2.2); Alkaline Phosphatase 101 Units/L (34-104); Aspartate Amino Transferase 89 Units/L (13-39); BUN/Creatinine Ratio 45 (6-26); Bilirubin,Total 0.3 mg/dL (0.3-1.0); Blood Urea Nitrogen 22 mg/dL (8-23); Calcium 8.3 mg/dL (8.6-10.3); Carbon Dioxide 37 mEq/L (23-29); Chloride 98 mEq/L (98-107); Globulin 3.6 g/dL (2.4-3.5); Glucose 182 mg/dL (70-105); Magnesium 1.2 mg/dL (1.6-2.6); Osmolality,Calculated 300 (280-300); Phosphorous 2.5 mg/dL (2.7-4.5); Potassium 3.6 mEq/L (3.5-5.1); Sodium 141 mEq/L (136-145); eGFR For African Americans > 60 (> 60); eGFR For Non-African Americans > 60 (> 60)
[2021-06-14 03:58] LABS: VBG Ionized Calcium 1.16 mmol/L (1.15-1.35)
[2021-06-14] MEDS: Potassium Chloride 40 MEQ/200 ML BAG IVPB PRN (04:20)
[2021-06-14] MEDS: Artificial Tears SOLN 15 ML BOTTLE BOTH EYES SCH ×7 (04:20→23:39)
[2021-06-14 04:23] LABS: ABG Base Excess 11 mEq/L (-2 to 3); ABG HCO3 36 mEq/L (21-27); ABG Oxygen Saturation 95 % (95-98); ABG PCO2 52 mmHg (35-45); ABG PH 7.45 pH Units (7.32-7.45); ABG PO2 75 mmHg (85-104); ABG TCO2 38 mEq/L (20-26); Blood Gas VT 400 cc
[2021-06-14] MEDS: *HR* Heparin 5,000 UNIT/ML VIAL SQ SCH ×3 (08:57→21:34)
[2021-06-14] MEDS: Valproic Acid Oral Soln 250 MG/5 ML UDC GTUBE SCH ×4 (08:58→23:39)
[2021-06-14] MEDS ORDERED: PARoxetine 30 MG TABLET PO SCH (09:00)
[2021-06-14] MEDS: Furosemide 40 MG/4 ML VIAL IVP SCH (09:02)
[2021-06-14] MEDS: Chlorhexidine Rinse 15 ML MOUTHWASH MM SCH ×2 (09:02→20:08)
[2021-06-14] MEDS: Gabapentin 300 MG CAPSULE PO SCH ×3 (09:02→21:34)
[2021-06-14] MEDS: Pantoprazole 40 MG VIAL IVP SCH (09:03)
[2021-06-14] MEDS: Vancomycin 1,250 MG/262.5 ML IV.SOLN IVPB SCH ×2 (10:23→22:16)
[2021-06-14 11:41] LABS: Magnesium 1.5 mg/dL (1.6-2.6); Potassium 4.5 mEq/L (3.5-5.1)
[2021-06-14] MEDS: Piperacillin/Tazobactam 3.375 GM in 0.9 % Sodium Chloride Mini Bag 100 ML IVPB SCH ×2 (15:01→23:39)
[2021-06-14] MEDS: Norepinephrine 4 MG/254 ML IV.SOLN IVC SCH ×3 (20:05→22:20)
[2021-06-14] MEDS: Dexmedetomidine HCl 400 MCG/100 ML MLS IVC SCH ×2 (20:06→20:07)
[2021-06-14] MEDS: FentaNYL (PF) 1,000 MCG/100 ML IV.SOLN IVC SCH ×2 (20:08→23:54)
[2021-06-15 03:28] LABS: Basophils # 0.1 K/mcL (0.0-0.2); Basophils % 0.5 %; Eosinophils # 0.1 K/mcL (0.0-0.6); Eosinophils % 0.2 %; Hematocrit 34.2 % (37.5-50.1); Hemoglobin 11.1 g/dL (12.9-16.9); Immature Granulocytes % 2.5 % (0-4); Lymphocytes # 2.7 K/mcL (0.6-4.6); Lymphocytes % 11.5 %; Mean Corpuscular HGB Conc 32.5 g/dL (31.6-35.5); Mean Corpuscular Hemoglobin 27.2 pg (28.0-33.3); Mean Corpuscular Volume 83.8 fL (83.0-100.0); Mean Platelet Volume 9.8 fL (9.4-12.4); Monocytes # 1.7 K/mcL (0.0-1.3); Monocytes % 7.3 %; Neutrophils # 18.2 K/mcL (1.6-8.9); Platelet Count 405 K/mcL (140-400); Red Blood Count 4.08 M/mcL (4.19-5.50); Red Cell Distribution Width 14.6 % (11.5-14.5); White Blood Count 23.4 K/mcL (4.3-11.1)
[2021-06-15 03:40] LABS: VBG Ionized Calcium 1.17 mmol/L (1.15-1.35)
[2021-06-15 03:53] LABS: Alanine Aminotransferase 121 Units/L (7-52); Albumin 2.4 g/dL (3.5-5.7); Albumin/Globulin Ratio 0.6 (1.1-2.2); Alkaline Phosphatase 96 Units/L (34-104); Aspartate Amino Transferase 84 Units/L (13-39); BUN/Creatinine Ratio 45 (6-26); Bilirubin,Total 0.3 mg/dL (0.3-1.0); Blood Urea Nitrogen 20 mg/dL (8-23); Calcium 8.5 mg/dL (8.6-10.3); Carbon Dioxide 39 mEq/L (23-29); Chloride 97 mEq/L (98-107); Globulin 3.8 g/dL (2.4-3.5); Glucose 217 mg/dL (70-105); Magnesium 1.4 mg/dL (1.6-2.6); Osmolality,Calculated 299 (280-300); Phosphorous 2.2 mg/dL (2.7-4.5); Potassium 4.1 mEq/L (3.5-5.1); Sodium 140 mEq/L (136-145); Total Protein 6.2 g/dL (6.4-8.9); eGFR For African Americans > 60 (> 60); eGFR For Non-African Americans > 60 (> 60)
[2021-06-15] MEDS: Artificial Tears SOLN 15 ML BOTTLE BOTH EYES SCH ×5 (03:54→20:51)
[2021-06-15 03:59] LABS: ABG Base Excess 12 mEq/L (-2 to 3); ABG HCO3 38 mEq/L (21-27); ABG Oxygen Saturation 96 % (95-98); ABG PCO2 53 mmHg (35-45); ABG PH 7.46 pH Units (7.32-7.45); ABG PO2 80 mmHg (85-104); ABG TCO2 40 mEq/L (20-26); Blood Gas VT 400 cc
[2021-06-15] MEDS: Insulin LISPRO 300 UNITS/3 ML VIAL SUBQ SCH ×3 (05:20→18:13)
[2021-06-15] MEDS: *HR* Heparin 5,000 UNIT/ML VIAL SQ SCH ×3 (05:24→22:02)
[2021-06-15] MEDS: Valproic Acid Oral Soln 250 MG/5 ML UDC GTUBE SCH ×2 (08:09→16:02)
[2021-06-15] MEDS: Norepinephrine 4 MG/254 ML IV.SOLN IVC SCH ×2 (08:09→18:17)
[2021-06-15] MEDS: Piperacillin/Tazobactam 3.375 GM in 0.9 % Sodium Chloride Mini Bag 100 ML IVPB SCH ×2 (08:10→16:02)
[2021-06-15] MEDS: Chlorhexidine Rinse 15 ML MOUTHWASH MM SCH ×2 (08:11→20:27)
[2021-06-15] MEDS: Pantoprazole 40 MG VIAL IVP SCH (08:11)
[2021-06-15] MEDS: Gabapentin 300 MG CAPSULE PO SCH ×3 (08:11→20:27)
[2021-06-15 08:16] LABS: BUN/Creatinine Ratio 46 (6-26); Blood Urea Nitrogen 21 mg/dL (8-23); Calcium 8.5 mg/dL (8.6-10.3); Carbon Dioxide 38 mEq/L (23-29); Chloride 97 mEq/L (98-107); Glucose 189 mg/dL (70-105); Osmolality,Calculated 300 (280-300); Potassium 4.3 mEq/L (3.5-5.1); Sodium 141 mEq/L (136-145); eGFR For African Americans > 60 (> 60); eGFR For Non-African Americans > 60 (> 60)
[2021-06-15] MEDS ORDERED: Albumin 25% 25gram/100mL 25 GM/100 ML IV.SOLN IVPB ONE (09:06)
[2021-06-15 09:34] LABS: Valproate 35 mcg/mL (50-100)
[2021-06-15] MEDS: Furosemide 40 MG/4 ML VIAL IVP SCH (09:51)
[2021-06-15] MEDS: Vancomycin 1,250 MG/262.5 ML IV.SOLN IVPB SCH ×2 (09:52→22:02)
[2021-06-15] MEDS: Dexmedetomidine HCl 400 MCG/100 ML MLS IVC SCH (18:17)
[2021-06-15] MEDS: FentaNYL (PF) 1,000 MCG/100 ML IV.SOLN IVC SCH (20:14)
[2021-06-15] MEDS ORDERED: Albumin Human 5% 12.5 GM/250 ML IV.SOLN IVPB ONE (21:07)
[2021-06-16] MEDS: Artificial Tears SOLN 15 ML BOTTLE BOTH EYES SCH ×7 (00:14→23:42)
[2021-06-16] MEDS: Insulin LISPRO 300 UNITS/3 ML VIAL SUBQ SCH ×5 (00:14→23:43)
[2021-06-16] MEDS: Valproic Acid Oral Soln 250 MG/5 ML UDC GTUBE SCH ×4 (00:15→23:43)
[2021-06-16] MEDS: Piperacillin/Tazobactam 3.375 GM in 0.9 % Sodium Chloride Mini Bag 100 ML IVPB SCH ×2 (00:15→07:58)
[2021-06-16 03:45] LABS: Basophils # 0.1 K/mcL (0.0-0.2); Basophils % 0.4 %; Eosinophils # 0.1 K/mcL (0.0-0.6); Eosinophils % 0.8 %; Hematocrit 29.5 % (37.5-50.1); Immature Granulocytes % 1.6 % (0-4); Lymphocytes # 2.3 K/mcL (0.6-4.6); Lymphocytes % 13.6 %; Mean Corpuscular HGB Conc 31.9 g/dL (31.6-35.5); Mean Corpuscular Hemoglobin 26.6 pg (28.0-33.3); Mean Corpuscular Volume 83.6 fL (83.0-100.0); Mean Platelet Volume 10.1 fL (9.4-12.4); Monocytes # 1.1 K/mcL (0.0-1.3); Monocytes % 6.6 %; Neutrophils # 12.9 K/mcL (1.6-8.9); Platelet Count 385 K/mcL (140-400); Red Blood Count 3.53 M/mcL (4.19-5.50); Red Cell Distribution Width 14.6 % (11.5-14.5); White Blood Count 16.7 K/mcL (4.3-11.1)
[2021-06-16 03:47] LABS: Hemoglobin 9.4 g/dL (12.9-16.9)
[2021-06-16 03:57] LABS: VBG Ionized Calcium 0.77 mmol/L (1.15-1.35)
[2021-06-16 04:17] LABS: Alanine Aminotransferase 101 Units/L (7-52); Albumin 2.5 g/dL (3.5-5.7); Albumin/Globulin Ratio 0.8 (1.1-2.2); Alkaline Phosphatase 70 Units/L (34-104); Aspartate Amino Transferase 91 Units/L (13-39); BUN/Creatinine Ratio 51 (6-26); Bilirubin,Total 0.4 mg/dL (0.3-1.0); Blood Urea Nitrogen 21 mg/dL (8-23); Calcium 7.9 mg/dL (8.6-10.3); Carbon Dioxide 36 mEq/L (23-29); Chloride 99 mEq/L (98-107); Glucose 204 mg/dL (70-105); Magnesium 1.4 mg/dL (1.6-2.6); Osmolality,Calculated 301 (280-300); Phosphorous 2.1 mg/dL (2.7-4.5); Potassium 3.9 mEq/L (3.5-5.1); Sodium 141 mEq/L (136-145); Total Protein 5.5 g/dL (6.4-8.9); eGFR For African Americans > 60 (> 60); eGFR For Non-African Americans > 60 (> 60)
[2021-06-16 04:25] LABS: ABG Base Excess 12 mEq/L (-2 to 3); ABG HCO3 38 mEq/L (21-27); ABG Oxygen Saturation 97 % (95-98); ABG PCO2 53 mmHg (35-45); ABG PH 7.46 pH Units (7.32-7.45); ABG PO2 89 mmHg (85-104); ABG TCO2 39 mEq/L (20-26); Blood Gas VT 400 cc
[2021-06-16] MEDS: Calcium Gluconate 1gm/50mL 1 GM/50 ML BAG IVPB PRN (04:47)
[2021-06-16] MEDS: Potassium Chloride 40 MEQ/200 ML BAG IVPB PRN (04:47)
[2021-06-16] MEDS: *HR* Heparin 5,000 UNIT/ML VIAL SQ SCH ×3 (05:32→21:57)
[2021-06-16] MEDS: Furosemide 40 MG/4 ML VIAL IVP SCH (07:57)
[2021-06-16] MEDS: Gabapentin 300 MG CAPSULE PO SCH ×3 (07:57→19:50)
[2021-06-16] MEDS: Chlorhexidine Rinse 15 ML MOUTHWASH MM SCH ×2 (07:57→19:50)
[2021-06-16] MEDS: Pantoprazole 40 MG VIAL IVP SCH (07:58)
[2021-06-16] MEDS: Vancomycin 1,500 MG/265 ML IV.SOLN IVPB SCH ×2 (12:18→22:35)
[2021-06-16 12:47] LABS: VBG Ionized Calcium 1.11 mmol/L (1.15-1.35)
[2021-06-16 13:35] LABS: BUN/Creatinine Ratio 48 (6-26); Blood Urea Nitrogen 22 mg/dL (8-23); Carbon Dioxide 40 mEq/L (23-29); Chloride 94 mEq/L (98-107); Glucose 247 mg/dL (70-105); Osmolality,Calculated 296 (280-300); Potassium 4.1 mEq/L (3.5-5.1); Sodium 137 mEq/L (136-145); eGFR For African Americans > 60 (> 60); eGFR For Non-African Americans > 60 (> 60)
[2021-06-16] MEDS: Norepinephrine 4 MG/254 ML IV.SOLN IVC SCH ×3 (18:54→19:02)
[2021-06-16] MEDS: Dexmedetomidine HCl 400 MCG/100 ML MLS IVC SCH (18:54)
[2021-06-16] MEDS: FentaNYL (PF) 1,000 MCG/100 ML IV.SOLN IVC SCH (19:02)
[2021-06-17] MEDS: Norepinephrine 4 MG/254 ML IV.SOLN IVC SCH (02:22)
[2021-06-17] MEDS: Dexmedetomidine HCl 400 MCG/100 ML MLS IVC SCH (02:23)
[2021-06-17] MEDS: Artificial Tears SOLN 15 ML BOTTLE BOTH EYES SCH ×4 (03:38→19:52)
[2021-06-17 03:51] LABS: Basophils # 0.1 K/mcL (0.0-0.2); Basophils % 0.4 %; Eosinophils # 0.1 K/mcL (0.0-0.6); Eosinophils % 0.6 %; Hematocrit 32.1 % (37.5-50.1); Immature Granulocytes % 1.8 % (0-4); Lymphocytes # 2.3 K/mcL (0.6-4.6); Lymphocytes % 13.6 %; Mean Corpuscular HGB Conc 31.2 g/dL (31.6-35.5); Mean Corpuscular Volume 83.6 fL (83.0-100.0); Monocytes # 1.2 K/mcL (0.0-1.3); Monocytes % 7.2 %; Neutrophils # 13.1 K/mcL (1.6-8.9); Platelet Count 447 K/mcL (140-400); Red Blood Count 3.84 M/mcL (4.19-5.50); Red Cell Distribution Width 14.4 % (11.5-14.5); Segmented Neutrophils % 76.4 %; White Blood Count 17.1 K/mcL (4.3-11.1)
[2021-06-17 03:51] LABS: ABG Base Excess 14 mEq/L (-2 to 3); ABG HCO3 39 mEq/L (21-27); ABG Oxygen Saturation 92 % (95-98); ABG PCO2 48 mmHg (35-45); ABG PH 7.52 pH Units (7.32-7.45); ABG PO2 58 mmHg (85-104); ABG TCO2 40 mEq/L (20-26); Blood Gas Modality AF; Blood Gas VT 400 cc
[2021-06-17 04:10] LABS: Alanine Aminotransferase 114 Units/L (7-52); Albumin 2.5 g/dL (3.5-5.7); Albumin/Globulin Ratio 0.7 (1.1-2.2); Alkaline Phosphatase 77 Units/L (34-104); Aspartate Amino Transferase 96 Units/L (13-39); BUN/Creatinine Ratio 48 (6-26); Bilirubin,Total 0.3 mg/dL (0.3-1.0); Blood Urea Nitrogen 21 mg/dL (8-23); Calcium 8.4 mg/dL (8.6-10.3); Carbon Dioxide 38 mEq/L (23-29); Chloride 96 mEq/L (98-107); Globulin 3.5 g/dL (2.4-3.5); Glucose 210 mg/dL (70-105); Magnesium 1.4 mg/dL (1.6-2.6); Osmolality,Calculated 295 (280-300); Phosphorous 2.3 mg/dL (2.7-4.5); Potassium 4.3 mEq/L (3.5-5.1); Sodium 138 mEq/L (136-145); eGFR For African Americans > 60 (> 60); eGFR For Non-African Americans > 60 (> 60)
[2021-06-17] MEDS: *HR* Heparin 5,000 UNIT/ML VIAL SQ SCH ×2 (05:51→21:29)
[2021-06-17] MEDS: Insulin LISPRO 300 UNITS/3 ML VIAL SUBQ SCH ×3 (05:52→15:28)
[2021-06-17] MEDS: Pantoprazole 40 MG VIAL IVP SCH (09:48)
[2021-06-17] MEDS: Gabapentin 300 MG CAPSULE PO SCH ×3 (09:49→19:52)
[2021-06-17] MEDS: Chlorhexidine Rinse 15 ML MOUTHWASH MM SCH ×2 (09:49→19:51)
[2021-06-17] MEDS: Furosemide 40 MG/4 ML VIAL IVP SCH (09:50)
[2021-06-17] MEDS: Valproic Acid Oral Soln 250 MG/5 ML UDC GTUBE SCH ×2 (09:56→15:59)
[2021-06-17] MEDS: Vancomycin 1,500 MG/265 ML IV.SOLN IVPB SCH ×2 (21:29)
[2021-06-18] MEDS: Artificial Tears SOLN 15 ML BOTTLE BOTH EYES SCH ×6 (00:22→19:40)
[2021-06-18] MEDS: Valproic Acid Oral Soln 250 MG/5 ML UDC GTUBE SCH ×3 (00:22→14:59)
[2021-06-18] MEDS: Insulin LISPRO 300 UNITS/3 ML VIAL SUBQ SCH ×4 (00:30→17:09)
[2021-06-18 03:55] LABS: ABG Base Excess 12 mEq/L (-2 to 3); ABG HCO3 36 mEq/L (21-27); ABG Oxygen Saturation 93 % (95-98); ABG PCO2 46 mmHg (35-45); ABG PH 7.51 pH Units (7.32-7.45); ABG PO2 63 mmHg (85-104); ABG TCO2 38 mEq/L (20-26); Blood Gas Modality AF; Blood Gas VT 400 cc
[2021-06-18 04:11] LABS: Basophils # 0.1 K/mcL (0.0-0.2); Basophils % 0.7 %; Eosinophils # 0.1 K/mcL (0.0-0.6); Eosinophils % 0.7 %; Hematocrit 32.4 % (37.5-50.1); Hemoglobin 10.6 g/dL (12.9-16.9); Immature Granulocytes % 2.5 % (0-4); Lymphocytes # 2.6 K/mcL (0.6-4.6); Lymphocytes % 15.3 %; Mean Corpuscular HGB Conc 32.7 g/dL (31.6-35.5); Mean Corpuscular Volume 82.4 fL (83.0-100.0); Mean Platelet Volume 10.2 fL (9.4-12.4); Monocytes # 1.5 K/mcL (0.0-1.3); Monocytes % 8.8 %; Platelet Count 515 K/mcL (140-400); Red Blood Count 3.93 M/mcL (4.19-5.50); Red Cell Distribution Width 14.6 % (11.5-14.5); White Blood Count 16.7 K/mcL (4.3-11.1)
[2021-06-18 04:30] LABS: Alanine Aminotransferase 129 Units/L (7-52); Albumin 2.6 g/dL (3.5-5.7); Albumin/Globulin Ratio 0.7 (1.1-2.2); Alkaline Phosphatase 83 Units/L (34-104); Aspartate Amino Transferase 101 Units/L (13-39); BUN/Creatinine Ratio 55 (6-26); Bilirubin,Total 0.3 mg/dL (0.3-1.0); Blood Urea Nitrogen 24 mg/dL (8-23); Calcium 8.7 mg/dL (8.6-10.3); Carbon Dioxide 36 mEq/L (23-29); Chloride 94 mEq/L (98-107); Glucose 243 mg/dL (70-105); Magnesium 1.4 mg/dL (1.6-2.6); Osmolality,Calculated 294 (280-300); Phosphorous 2.6 mg/dL (2.7-4.5); Potassium 4.4 mEq/L (3.5-5.1); Sodium 136 mEq/L (136-145); Total Protein 6.6 g/dL (6.4-8.9); eGFR For African Americans > 60 (> 60); eGFR For Non-African Americans > 60 (> 60)
[2021-06-18] MEDS: *HR* Heparin 5,000 UNIT/ML VIAL SQ SCH ×4 (05:56→22:14)
[2021-06-18] MEDS ORDERED: 0.9 % Sodium Chloride 250 ML ONE (07:54)
[2021-06-18] MEDS: Chlorhexidine Rinse 15 ML MOUTHWASH MM SCH ×2 (07:58→19:40)
[2021-06-18] MEDS: Gabapentin 300 MG CAPSULE PO SCH ×3 (07:58→19:40)
[2021-06-18] MEDS: Pantoprazole 40 MG VIAL IVP SCH (07:58)
[2021-06-18] MEDS: Norepinephrine 4 MG/254 ML IV.SOLN IVC SCH ×2 (08:33→08:34)
[2021-06-18] MEDS: FentaNYL (PF) 1,000 MCG/100 ML IV.SOLN IVC SCH (08:33)
[2021-06-18] MEDS: Dexmedetomidine HCl 400 MCG/100 ML MLS IVC SCH (08:34)
[2021-06-18] MEDS: Vancomycin 1,500 MG/265 ML IV.SOLN IVPB SCH ×2 (12:12→22:13)
[2021-06-18] MEDS: *HR* Metoprolol 5 MG/5 ML VIAL IVP PRN (13:41)
[2021-06-19] MEDS: Insulin LISPRO 300 UNITS/3 ML VIAL SUBQ SCH ×4 (00:08→17:06)
[2021-06-19] MEDS: Artificial Tears SOLN 15 ML BOTTLE BOTH EYES SCH ×7 (00:08→23:46)
[2021-06-19] MEDS: Valproic Acid Oral Soln 250 MG/5 ML UDC GTUBE SCH ×4 (00:10→23:46)
[2021-06-19 04:04] LABS: Basophils # 0.1 K/mcL (0.0-0.2); Basophils % 0.6 %; Eosinophils # 0.1 K/mcL (0.0-0.6); Eosinophils % 0.8 %; Hematocrit 32.6 % (37.5-50.1); Hemoglobin 10.3 g/dL (12.9-16.9); Immature Granulocytes % 1.9 % (0-4); Lymphocytes # 2.7 K/mcL (0.6-4.6); Lymphocytes % 16.4 %; Mean Corpuscular HGB Conc 31.6 g/dL (31.6-35.5); Mean Corpuscular Hemoglobin 26.6 pg (28.0-33.3); Mean Corpuscular Volume 84.2 fL (83.0-100.0); Mean Platelet Volume 10.2 fL (9.4-12.4); Monocytes # 1.5 K/mcL (0.0-1.3); Monocytes % 9.4 %; Neutrophils # 11.5 K/mcL (1.6-8.9); Platelet Count 515 K/mcL (140-400); Red Blood Count 3.87 M/mcL (4.19-5.50); Red Cell Distribution Width 14.7 % (11.5-14.5); Segmented Neutrophils % 70.9 %; White Blood Count 16.3 K/mcL (4.3-11.1)
[2021-06-19 04:18] LABS: Alanine Aminotransferase 126 Units/L (7-52); Albumin 2.5 g/dL (3.5-5.7); Albumin/Globulin Ratio 0.6 (1.1-2.2); Alkaline Phosphatase 79 Units/L (34-104); Aspartate Amino Transferase 97 Units/L (13-39); BUN/Creatinine Ratio 64 (6-26); Bilirubin,Total 0.3 mg/dL (0.3-1.0); Blood Urea Nitrogen 23 mg/dL (8-23); Calcium 8.4 mg/dL (8.6-10.3); Carbon Dioxide 32 mEq/L (23-29); Chloride 100 mEq/L (98-107); Glucose 210 mg/dL (70-105); Magnesium 1.4 mg/dL (1.6-2.6); Osmolality,Calculated 298 (280-300); Phosphorous 2.7 mg/dL (2.7-4.5); Potassium 4.7 mEq/L (3.5-5.1); Sodium 139 mEq/L (136-145); Total Protein 6.5 g/dL (6.4-8.9); eGFR For African Americans > 60 (> 60); eGFR For Non-African Americans > 60 (> 60)
[2021-06-19 04:20] LABS: VBG Ionized Calcium 1.25 mmol/L (1.15-1.35)
[2021-06-19 05:07] LABS: ABG Base Excess 7 mEq/L (-2 to 3); ABG HCO3 32 mEq/L (21-27); ABG Oxygen Saturation 94 % (95-98); ABG PCO2 47 mmHg (35-45); ABG PH 7.44 pH Units (7.32-7.45); ABG PO2 71 mmHg (85-104); ABG TCO2 33 mEq/L (20-26); Blood Gas Modality AF; Blood Gas VT 400 cc
[2021-06-19] MEDS: *HR* Heparin 5,000 UNIT/ML VIAL SQ SCH ×3 (05:27→21:35)
[2021-06-19] MEDS: Chlorhexidine Rinse 15 ML MOUTHWASH MM SCH ×2 (07:32→19:55)
[2021-06-19] MEDS: Pantoprazole 40 MG VIAL IVP SCH (07:33)
[2021-06-19] MEDS: Gabapentin 300 MG CAPSULE PO SCH ×3 (07:33→19:55)
[2021-06-19] MEDS: Vancomycin 1,500 MG/265 ML IV.SOLN IVPB SCH ×2 (09:01→21:36)
[2021-06-19] MEDS: Dexmedetomidine HCl 400 MCG/100 ML MLS IVC SCH (19:55)
[2021-06-20] MEDS: Insulin LISPRO 300 UNITS/3 ML VIAL SUBQ SCH ×5 (03:21→23:33)
[2021-06-20] MEDS: Artificial Tears SOLN 15 ML BOTTLE BOTH EYES SCH ×6 (03:37→23:33)
[2021-06-20 04:13] LABS: ABG Base Excess 7 mEq/L (-2 to 3); ABG HCO3 33 mEq/L (21-27); ABG Oxygen Saturation 98 % (95-98); ABG PCO2 50 mmHg (35-45); ABG PH 7.43 pH Units (7.32-7.45); ABG PO2 107 mmHg (85-104); ABG TCO2 34 mEq/L (20-26); Blood Gas Modality AF; Blood Gas VT 400 cc
[2021-06-20 04:20] LABS: ABG Ionized Calcium 1.27 mmol/L (1.15-1.35)
[2021-06-20 04:51] LABS: Basophils # 0.1 K/mcL (0.0-0.2); Basophils % 0.5 %; Eosinophils # 0.1 K/mcL (0.0-0.6); Eosinophils % 0.8 %; Hematocrit 29.3 % (37.5-50.1); Hemoglobin 9.5 g/dL (12.9-16.9); Immature Granulocytes % 2.2 % (0-4); Lymphocytes # 2.2 K/mcL (0.6-4.6); Lymphocytes % 14.8 %; Mean Corpuscular HGB Conc 32.4 g/dL (31.6-35.5); Mean Corpuscular Hemoglobin 27.2 pg (28.0-33.3); Mean Platelet Volume 10.4 fL (9.4-12.4); Monocytes # 1.5 K/mcL (0.0-1.3); Monocytes % 10.1 %; Neutrophils # 10.7 K/mcL (1.6-8.9); Platelet Count 433 K/mcL (140-400); Red Blood Count 3.49 M/mcL (4.19-5.50); Red Cell Distribution Width 14.7 % (11.5-14.5); Segmented Neutrophils % 71.6 %
[2021-06-20 05:30] LABS: BUN/Creatinine Ratio 61 (6-26); Blood Urea Nitrogen 23 mg/dL (8-23); Calcium 8.4 mg/dL (8.6-10.3); Carbon Dioxide 34 mEq/L (23-29); Chloride 101 mEq/L (98-107); Glucose 217 mg/dL (70-105); Magnesium 1.4 mg/dL (1.6-2.6); Osmolality,Calculated 292 (280-300); Phosphorous 2.3 mg/dL (2.7-4.5); Potassium 4.7 mEq/L (3.5-5.1); Sodium 136 mEq/L (136-145); eGFR For African Americans > 60 (> 60); eGFR For Non-African Americans > 60 (> 60)
[2021-06-20] MEDS: *HR* Heparin 5,000 UNIT/ML VIAL SQ SCH ×3 (05:39→21:30)
[2021-06-20] MEDS: Valproic Acid Oral Soln 250 MG/5 ML UDC GTUBE SCH ×3 (07:39→23:33)
[2021-06-20] MEDS: Pantoprazole 40 MG VIAL IVP SCH (07:39)
[2021-06-20] MEDS: Chlorhexidine Rinse 15 ML MOUTHWASH MM SCH ×2 (07:39→19:42)
[2021-06-20] MEDS: Gabapentin 300 MG CAPSULE PO SCH ×3 (07:40→19:42)
[2021-06-20] MEDS: Vancomycin 1,500 MG/265 ML IV.SOLN IVPB SCH ×2 (11:05→21:31)
[2021-06-20] MEDS: Dexmedetomidine HCl 400 MCG/100 ML MLS IVC SCH (19:43)
[2021-06-21] MEDS: Artificial Tears SOLN 15 ML BOTTLE BOTH EYES SCH ×6 (03:09→23:03)
[2021-06-21 04:52] LABS: ABG Base Excess 12 mEq/L (-2 to 3); ABG HCO3 37 mEq/L (21-27); ABG Oxygen Saturation 97 % (95-98); ABG PCO2 52 mmHg (35-45); ABG PH 7.46 pH Units (7.32-7.45); ABG PO2 92 mmHg (85-104); ABG TCO2 39 mEq/L (20-26); Blood Gas VT 400 cc
[2021-06-21 05:07] LABS: BUN/Creatinine Ratio 63 (6-26); Blood Urea Nitrogen 22 mg/dL (8-23); Calcium 8.5 mg/dL (8.6-10.3); Carbon Dioxide 33 mEq/L (23-29); Chloride 97 mEq/L (98-107); Glucose 176 mg/dL (70-105); Osmolality,Calculated 286 (280-300); Potassium 4.7 mEq/L (3.5-5.1); Sodium 134 mEq/L (136-145); eGFR For African Americans > 60 (> 60); eGFR For Non-African Americans > 60 (> 60)
[2021-06-21] MEDS: Insulin LISPRO 300 UNITS/3 ML VIAL SUBQ SCH ×4 (05:12→23:03)
[2021-06-21] MEDS: *HR* Heparin 5,000 UNIT/ML VIAL SQ SCH ×3 (05:12→21:02)
[2021-06-21 05:40] LABS: Red Blood Count 3.56 M/mcL (4.19-5.50); White Blood Count 14.9 K/mcL (4.3-11.1)
[2021-06-21 05:41] LABS: Hematocrit 29.8 % (37.5-50.1); Hemoglobin 9.6 g/dL (12.9-16.9); Mean Corpuscular HGB Conc 32.2 g/dL (31.6-35.5); Mean Corpuscular Volume 83.7 fL (83.0-100.0); Mean Platelet Volume 10.3 fL (9.4-12.4); Platelet Count 475 K/mcL (140-400)
[2021-06-21 05:42] LABS: Basophils # 0.1 K/mcL (0.0-0.2); Basophils % 0.7 %; Eosinophils # 0.1 K/mcL (0.0-0.6); Eosinophils % 0.6 %; Immature Granulocytes % 1.7 % (0-4); Lymphocytes # 2.7 K/mcL (0.6-4.6); Lymphocytes % 17.9 %; Monocytes # 1.7 K/mcL (0.0-1.3); Monocytes % 11.1 %; Neutrophils # 10.1 K/mcL (1.6-8.9)
[2021-06-21] MEDS: Pantoprazole 40 MG VIAL IVP SCH (07:28)
[2021-06-21] MEDS: Valproic Acid Oral Soln 250 MG/5 ML UDC GTUBE SCH ×3 (07:28→23:03)
[2021-06-21] MEDS: Gabapentin 300 MG CAPSULE PO SCH ×3 (07:28→19:52)
[2021-06-21] MEDS: Chlorhexidine Rinse 15 ML MOUTHWASH MM SCH ×2 (07:28→19:52)
[2021-06-21] MEDS ORDERED: *HR* LORazepam 2 MG/ML VIAL ONE (11:10)
[2021-06-21] MEDS: Vancomycin 1,500 MG/265 ML IV.SOLN IVPB SCH ×2 (11:15→21:02)
[2021-06-21] MEDS: *HR* LORazepam 2 MG/ML VIAL IVP PRN ×2 (11:31→18:44)
[2021-06-21] MEDS: Dexmedetomidine HCl 400 MCG/100 ML MLS IVC SCH (20:59)
[2021-06-22] MEDS: *HR* LORazepam 2 MG/ML VIAL IVP PRN (02:05)
[2021-06-22] MEDS: Artificial Tears SOLN 15 ML BOTTLE BOTH EYES SCH ×3 (03:09→12:16)
[2021-06-22] MEDS: *HR* Metoprolol 5 MG/5 ML VIAL IVP PRN (03:46)
[2021-06-22 04:27] LABS: ABG Base Excess 11 mEq/L (-2 to 3); ABG HCO3 37 mEq/L (21-27); ABG Oxygen Saturation 97 % (95-98); ABG PCO2 54 mmHg (35-45); ABG PH 7.44 pH Units (7.32-7.45); ABG PO2 86 mmHg (85-104); ABG TCO2 39 mEq/L (20-26); Blood Gas Modality ASSIST CONTROL; Blood Gas VT 400 cc
[2021-06-22] MEDS: *HR* Heparin 5,000 UNIT/ML VIAL SQ SCH ×2 (05:26→17:36)
[2021-06-22] MEDS: Insulin LISPRO 300 UNITS/3 ML VIAL SUBQ SCH ×2 (05:26→12:16)
[2021-06-22 06:19] LABS: Basophils # 0.1 K/mcL (0.0-0.2); Basophils % 0.4 %; Eosinophils # 0.1 K/mcL (0.0-0.6); Eosinophils % 0.6 %; Hematocrit 30.7 % (37.5-50.1); Hemoglobin 9.9 g/dL (12.9-16.9); Lymphocytes # 2.1 K/mcL (0.6-4.6); Lymphocytes % 12.2 %; Mean Corpuscular HGB Conc 32.2 g/dL (31.6-35.5); Mean Corpuscular Hemoglobin 27.3 pg (28.0-33.3); Mean Corpuscular Volume 84.8 fL (83.0-100.0); Mean Platelet Volume 9.9 fL (9.4-12.4); Monocytes # 1.9 K/mcL (0.0-1.3); Neutrophils # 12.7 K/mcL (1.6-8.9); Platelet Count 486 K/mcL (140-400); Red Blood Count 3.62 M/mcL (4.19-5.50); Red Cell Distribution Width 15.3 % (11.5-14.5); Segmented Neutrophils % 74.8 %
[2021-06-22 06:29] LABS: BUN/Creatinine Ratio 54 (6-26); Blood Urea Nitrogen 22 mg/dL (8-23); Carbon Dioxide 37 mEq/L (23-29); Chloride 98 mEq/L (98-107); Glucose 202 mg/dL (70-105); Magnesium 1.5 mg/dL (1.6-2.6); Osmolality,Calculated 293 (280-300); Phosphorous 2.9 mg/dL (2.7-4.5); Sodium 137 mEq/L (136-145); eGFR For African Americans > 60 (> 60); eGFR For Non-African Americans > 60 (> 60)
[2021-06-22] MEDS: Pantoprazole 40 MG VIAL IVP SCH (07:49)
[2021-06-22] MEDS: Chlorhexidine Rinse 15 ML MOUTHWASH MM SCH (07:49)
[2021-06-22] MEDS: Gabapentin 300 MG CAPSULE PO SCH ×2 (07:49→17:36)
[2021-06-22] MEDS: Valproic Acid Oral Soln 250 MG/5 ML UDC GTUBE SCH (07:49)
[2021-06-22] MEDS ORDERED: Atropine Sulfate 1% 40 DROP/2 ML BOTTLE SL PRN ×2 (11:17→15:22)
[2021-06-22] MEDS ORDERED: Glycopyrrolate 0.2 MG/ML VIAL IVP PRN ×2 (11:22→15:22)
[2021-06-22] MEDS ORDERED: Morphine Sulfate 2 MG/ML SYRINGE IVP PRN (12:47)
[2021-06-22] MEDS ORDERED: *HR* LORazepam 2 MG/ML VIAL IVP PRN ×2 (12:49→15:22)
[2021-06-22] MEDS ORDERED: Scopolamine Patch 1.5 MG PATCH.TD72 TD SCH (13:00)
[2021-06-22] MEDS: Morphine Sulfate 2 MG/ML SYRINGE IVP PRN (22:12)
[2021-06-23] MEDS: Morphine Sulfate 2 MG/ML SYRINGE IVP PRN ×4 (04:46→16:15)
[2021-06-23 07:35] VITALS: BP 116/72; PULSE 95; TEMP 98.2; O2SAT 84
[2021-06-25] MEDS ORDERED: Scopolamine Patch 1.5 MG PATCH.TD72 TD SCH (13:00)
== END 2021-06-23 16:57 | disposition hospice, inpatient (51) | DRG 870 ==
LOC: SUATTDRO → EMEROOARM 16:27 → SUATTDRO 06-05 04:04 → ICNU 06-05 04:04 → 2ANU 06-22 17:26
PROVIDERS: ADMIT Internal Medicine; ATTEND Internal Medicine